=== PATIENT | male | born 1975 | race Caucasian/White ===

== ENCOUNTER 2022-08-02 18:50 | Inpatient (IN) ==
[2022-08-02 19:35] LABS: Basophils # (auto) 0.05 K/uL (0-0.2); Basophils % (auto) 0.6 %; Eosinophils # (auto) 0.17 K/uL (0-0.50); Hematocrit (blood only) 51.5 % (40.1-51.0); Hemoglobin 16.8 g/dl (14.0-18.0); Immature Granulocytes # (auto) 0.02 K/uL (0.00-0.02); Immature Granulocytes % (auto) 0.2 %; Lymphocytes % (auto) 17.2 %; Mean Corpuscular Hemoglobin 29.6 pg (25.0-34.0); Mean Corpuscular Hgb Conc 32.6 g/dL (32.0-36.0); Mean Corpuscular Volume 90.8 fL (80.0-100.0); Mean Platelet Volume 13.2 fL (9.4-12.4); Monocytes # (auto) 0.72 K/uL (0.24-0.82); Monocytes % (auto) 8.3 %; Neutrophils # (auto) 6.24 K/uL (1.4-6.5); Neutrophils % (auto) 71.7 %; Platelet Count 224 K/uL (130-400); RDW Coefficient of Variation 13.9 % (11.5-14.5); RDW Standard Deviation 46.5 fL (36.4-46.3); Red Blood Count 5.67 M/uL (4.63-6.08)
[2022-08-02 19:39] LABS: Appearance Urine Clear (Clear); Bacteria Urine Automated Negative (Negative); Blood Urine 2+ (Negative); Color Urine Dark Yellow; Glucose Urine UA Negative (Negative); Ketones Urine Trace (Negative); Leukocyte Esterase Urine Negative (Negative); Nitrite Urine Negative (Negative); Protein Urine 4+ (Negative); Specific Gravity Urine 1.028 (1.000-1.030); Urobilinogen Urine Negative (Negative); pH Urine 5.5 (4.5-7.5)
[2022-08-02 19:41] LABS: Bilirubin Urine 1+ (Negative)
[2022-08-02 19:47] LABS: Cast Urine Automated >30 /lpf (0-5)
[2022-08-02 19:51] LABS: Albumin Globulin Ratio 0.8 (0.9-2); Albumin Level 3.2 gm/dl (3.4-5.0); Bilirubin,Total 1.4 mg/dl (0.2-1.0); Calcium 8.5 mg/dl (8.5-10.1); Creatinine Clr Calc Pharmacy 106.1 ml/min; Est GFR (African American) 96.4 ml/min; Est GFR (Non-African American) 83.2 ml/min; Globulin 4.1 gm/dl (2.5-4.0); Potassium 3.9 mmol/L (3.5-5.1); Total Protein 7.3 gm/dl (6.0-8.3)
--- NOTE | 2022-08-02 21:41 | Emergency Department Note ---
History of Present Illness General Chief complaint: Abdominal Pain Stated complaint: ABDOMINAL PAIN, SHORTNESS OF BREATH Time Seen by Provider: 08/02/22 21:40 History of Present Illness Maximum Pain Intensity: 7 This 46-year-old male patient presents to the emergency department with his for evaluation of an umbilical hernia with increased pain. Also complaining of bloating and swollen ankles. He has been having increased pressure in his abdomen around his hernia along with the swelling in his ankles and he is concerned that something is going on right now. Has been having SOB along with the symptoms, but no chest pain. Denies any nausea or vomiting. His urine sometimes seems a little darker than usual, but no blood in his urine and no dysuria. Soft formed BMs once a day. Denies hematochezia or melena. Has not been eating as much as normal b/c of the abdominal discomfort. Has not taken any medication for the symptoms. Has not had any recent labs or imaging and has not been evaluated for the hernia previously. He is in the process of getting in with a PCP, but does not have one right now. He has not seen a PCP in many years. No known problems with his liver or kidneys. No known diabetes, but it runs in the family. He drinks beer once every couple months and denies any significant increased ETOH use. He smokes just under 1 ppd. Allergies Allergy/AdvReac Type Severity Reaction Status Date / Time No Known Allergies Allergy Verified 08/02/22 21:51 Past Med/Surg History Medical History Psoriasis Umbilical hernia Surgical History No pertinent past surgical history Social History Smoking Status: Current every day smoker Cigarettes Per Day: 15; Do You Dip or Chew Tobacco: Yes; Tobacco Cessation Education Requested by Patient: No Hx Alcohol Use: Yes Alcohol type: beer Hx Substance Use: Yes Last Used Substance: Days (ago) Preferred Language: Citizen Of [place] Communication Ability: Effective Opinion Polls Survey Worker Required: No Beliefs That Will Affect Care: None Current Living Situation: Spouse Feels Safe at Home: Yes Safety Concerns: Feels Safe At This Time Assistive Devices: Glasses Review of Systems See HPI for pertinent positives & negatives. and A total of 10 systems reviewed and were otherwise negative Physical Exam Vital Signs Vital Signs - 24 hr 08/02/22 18:58 08/02/22 22:00 08/03/22 00:02 Temperature 36.9 C Temperature Source Temporal Artery Scan Pulse Rate 106 H Pulse Rate [Finger] 95 H 92 H Pulse Rate from SpO2 Sensor Pulse Rhythm [Finger] Regular Regular Pulse Strength [Finger] Normal Normal Respiratory Rate 20 16 21 Respiratory Effort / Characteristics Non-Labored Spontaneous Non-Labored Non-Labored Spontaneous Respiratory Depth Normal Normal Normal Respiratory Pattern Regular Regular Blood Pressure 187/157 H Blood Pressure [Right Arm] 215/137 H 231/150 H Blood Pressure Mean 167 Blood Pressure Mean [Right Arm] 163 177 Blood Pressure Position [Right Arm] Sitting Pulse Oximetry 96 97 94 Oxygen Delivery Method Room Air Room Air Room Air Sepsis New/Unexplained Change in Mental Status N/A Sepsis Action Taken by Nursing No Action Required 08/03/22 01:00 08/03/22 03:01 08/03/22 03:02 Temperature Temperature Source Pulse Rate 94 H Pulse Rate [Finger] 89 Pulse Rate from SpO2 Sensor 95 H Pulse Rhythm [Finger] Regular Pulse Strength [Finger] Normal Respiratory Rate 21 25 H Respiratory Effort / Characteristics Non-Labored Spontaneous Respiratory Depth Normal Respiratory Pattern Regular Blood Pressure 273/196 H 270/134 H Blood Pressure [Right Arm] 232/144 H Blood Pressure Mean 221 179 Blood Pressure Mean [Right Arm] 173 Blood Pressure Position [Right Arm] Sitting Pulse Oximetry 92 91 Oxygen Delivery Method Room Air Room Air Sepsis New/Unexplained Change in Mental Status Sepsis Action Taken by Nursing 08/03/22 04:25 08/03/22 05:00 Temperature Temperature Source Pulse Rate 91 H 85 Pulse Rate [Finger] Pulse Rate from SpO2 Sensor 93 H 85 Pulse Rhythm [Finger] Pulse Strength [Finger] Respiratory Rate 23 23 Respiratory Effort / Characteristics Respiratory Depth Respiratory Pattern Blood Pressure 214/134 H 216/155 H Blood Pressure [Right Arm] Blood Pressure Mean 160 175 Blood Pressure Mean [Right Arm] Blood Pressure Position [Right Arm] Pulse Oximetry 93 92 Oxygen Delivery Method Room Air Room Air Sepsis New/Unexplained Change in Mental Status Sepsis Action Taken by Nursing VITALS: Vitals are noted on the nurse's note and reviewed by myself. GENERAL: 46-year-old male, in no acute distress, non-diaphoretic, well-developed well-nourished. SKIN: Multiple areas of psoriasis scattered over the patient's body. No obvious evidence for infection. Capillary refill <2 sec. HEAD: Normocephalic, atraumatic. EARS: External auditory canals clear, tympanic membranes pearly duarte without erythema or effusion bilaterally. EYES: PERRLA. EOMI. Conjunctivae without injection, sclerae without icterus. NOSE: Patent without discharge. MOUTH: Mucous membranes moist. Uvula midline. Airway patent. NECK: Supple without nuchal rigidity. HEART: Regular rate and rhythm without obvious murmurs gallops or rubs given patient's body habitus. LUNGS: Clear to auscultation bilaterally without wheezes, rales or rhonchi. No retractions or accessory muscle use. ABDOMEN: Positive bowel sounds x 4. Abdomen distended without obvious ascites or fluid wave. Small umbilical hernia without evidence for incarceration or strangulation. The abdomen is not tense. Unable to palpate the liver or spleen due to the abdominal distention and body habitus. Diffusely tender to palpation with no maximal area of tenderness. The patient does have erythema and some induration of the lower abdominal fold. Gonzalez sign negative. No guarding or rebound tenderness. MUSCULOSKELETAL: Edema of the bilateral lower extremities without any significant pitting. Dorsalis pedis and posterior tibial pulse 2+. NEURO: Patient was alert and oriented to person place and time. No asterixis. No focal neurological deficits. Course Administered Medications Enoxaparin Sodium (Enoxaparin Inj 40 Mg/0.4 Ml Syr) 40 mg SQ QAM [facility] Stop: 09/02/22 08:59 Last Admin: 08/03/22 07:59 Dose: 40 mg Documented By: VALERIA Furosemide (Furosemide 40 Mg/4 Ml Vial) 40 mg IV BID17 [facility] Stop: 09/02/22 08:59 Last Admin: 08/03/22 09:12 Dose: 40 mg Documented By: KAMALJIT Hydralazine HCl (Hydralazine 10 Mg Tab) 5 mg PO TID [facility] Stop: 09/02/22 08:59 Last Admin: 08/03/22 09:11 Dose: 5 mg Documented By: KAMALJIT Metoprolol Tartrate (Metoprolol Tartrate 25 Mg Tab) 25 mg PO BID [facility] Stop: 09/02/22 07:59 Last Admin: 08/03/22 08:44 Dose: 25 mg Documented By: KAMALJIT Discontinued Medications Fentanyl Citrate (Fentanyl Citrate 100 Mcg/2 Ml Vial) 50 mcg IV NOW STA Stop: 08/02/22 23:40 Last Admin: 08/02/22 23:56 Dose: 50 mcg Documented By: KENNETH Furosemide (Furosemide Inj 20 Mg/2 Ml Vial) 20 mg IV ONE ONE Stop: 08/03/22 02:55 Last Admin: 08/03/22 03:08 Dose: 20 mg Documented By: KENNETH Furosemide (Furosemide 40 Mg/4 Ml Vial) 40 mg IV ONE ONE Stop: 08/03/22 07:31 Last Admin: 08/03/22 07:57 Dose: 40 mg Documented By: VALERIA Influenza Virus Vaccine Quadrival (Fluarix Quadrivalent 0.5 Ml Syr) 0.5 ml IM .ONCE ONE Stop: 08/03/22 06:39 Last Admin: 08/03/22 07:58 Dose: Not Given Documented By: VALERIA Ioversol (Optiray 320 500ml) 125 ml IV ONCE ONE Stop: 08/03/22 00:38 Last Admin: 08/03/22 00:37 Dose: 117 ml Documented By: GABE Labetalol HCl (Labetalol Hcl Iv 5 Mg/Ml 20ml) 10 mg IV NOW STA Stop: 08/03/22 03:24 Last Admin: 08/03/22 04:42 Dose: 10 mg Documented By: KENNETH Co-signed By: IVON Lisinopril (Lisinopril 5 Mg Tab) 5 mg PO NOW ONE Stop: 08/03/22 05:06 Last Admin: 08/03/22 05:42 Dose: 5 mg Documented By: KENNETH Lisinopril (Lisinopril 5 Mg Tab) 5 mg PO ONE ONE Stop: 08/03/22 08:01 Last Admin: 08/03/22 07:57 Dose: 5 mg Documented By: VALERIA Lisinopril (Lisinopril 10 Mg Tab) 30 mg PO ONE ONE Stop: 08/03/22 09:01 Last Admin: 08/03/22 09:12 Dose: 30 mg Documented By: KAMALJIT Ondansetron HCl (Ondansetron Inj 2 Mg/Ml 2 Ml Vial) 4 mg IV NOW STA Stop: 08/02/22 23:40 Last Admin: 08/02/22 23:56 Dose: 4 mg Documented By: KENNETH Medical Decision Making Differential Diagnosis Differential diagnosis includes incarcerated or strangulated umbilical hernia, CHF, cirrhosis, ascites, pericardial effusion, PE, DVT, GA, cellulitis, abdominal abscess, abdominal mass, pulmonary mass/lesion, cellulitis, or others. Laboratory Data Attestation: I reviewed the patient's lab results. Result diagrams: 08/03/22 08:14 08/03/22 08:14 Lab Results 08/02/22 08/02/22 08/02/22 Range/Units 00:21 19:18 19:18 WBC 8.70 (4.8-10.8) K/ul RBC 5.67 (4.63-6.08) M/uL Hgb 16.8 (14.0-18.0) g/dl Hct 51.5 H (40.1-51.0) % MCV 90.8 (80.0-100.0) fL MCH 29.6 (25.0-34.0) pg MCHC 32.6 (32.0-36.0) g/dL RDW Std Deviation 46.5 H (36.4-46.3) fL RDW Coeff of Nain 13.9 (11.5-14.5) % Plt Count 224 (130-400) K/uL MPV 13.2 H (9.4-12.4) fL Immature Gran % (Auto) 0.2 % Neut % (Auto) 71.7 % Lymph % (Auto) 17.2 % Giles % (Auto) 8.3 % Eos % (Auto) 2.0 % Baso % (Auto) 0.6 % Neut # (Auto) 6.24 (1.4-6.5) K/uL Lymph # (Auto) 1.50 (1.2-3.4) K/uL Giles # (Auto) 0.72 (0.24-0.82) K/uL Eos # (Auto) 0.17 (0-0.50) K/uL Baso # (Auto) 0.05 (0-0.2) K/uL Immature Gran # (Auto) 0.02 (0.00-0.02) K/uL PT (9.0-12.0) Seconds INR (0.9-1.1) APTT (21.0-31.0) Seconds PTT Ratio D-Dimer (0-500) ug/L FEU Sodium 137 (136-145) mmol/L Potassium 3.9 (3.5-5.1) mmol/L Chloride 98 (98-107) mmol/L Carbon Dioxide 32 (21-32) mmol/L Anion Gap 7 (3-11) BUN 18 (6-23) mg/dl Creatinine 1.06 (0.6-1.4) mg/dl Est Cr Clr Drug Dosing 106.1 ml/min Est GFR ( Amer) 96.4 ml/min Est GFR (Non-Af Amer) 83.2 ml/min BUN/Creatinine Ratio 17.0 (10-20) Glucose 173 H (70-99(Fasting)) mg/dl Estimat Average Glucose mg/dl Hemoglobin A1c (4.5-5.6) % Calcium 8.5 (8.5-10.1) mg/dl Magnesium Cancelled Total Bilirubin 1.4 H (0.2-1.0) mg/dl Direct Bilirubin (0-0.2) mg/dl AST 20 (13-39) U/L ALT 16 (7-52) U/L Alkaline Phosphatase 80 (34-104) U/L Troponin I High Sens (0-20) pg/ml B-Natriuretic Peptide (0-100) pg/ml Total Protein 7.3 (6.0-8.3) gm/dl Albumin 3.2 L (3.4-5.0) gm/dl Globulin 4.1 H (2.5-4.0) gm/dl Albumin/Globulin Ratio 0.8 L (0.9-2) Lipase 22 (11-82) U/L TSH (0.300-4.500) uIu/ml Urine Color Urine Appearance (Clear) Urine pH (4.5-7.5) Ur Specific [place] (1.000-1.030) Urine Protein (Negative) Urine Glucose (UA) (Negative) Urine Ketones (Negative) Urine Blood (Negative) Urine Nitrite (Negative) Urine Bilirubin (Negative) Urine Urobilinogen (Negative) Ur Leukocyte Esterase (Negative) Urine WBC (Auto) (0-5) /hpf Urine RBC (Auto) (0-4) /hpf U Hyaline Cast (Auto) (0-5) /lpf U Epithel Cells (Auto) (0-5) /lpf Urine Bacteria (Auto) (Negative) Ur Renal Epithelial Cell Granular Casts (0) /lpf SARS-CoV-2, RNA, NAAT (NEGATIVE) 08/02/22 08/02/22 08/02/22 Range/Units 19:18 19:18 19:24 WBC (4.8-10.8) K/ul RBC (4.63-6.08) M/uL Hgb (14.0-18.0) g/dl Hct (40.1-51.0) % MCV (80.0-100.0) fL MCH (25.0-34.0) pg MCHC (32.0-36.0) g/dL RDW Std Deviation (36.4-46.3) fL RDW Coeff of Nain (11.5-14.5) % Plt Count (130-400) K/uL MPV (9.4-12.4) fL Immature Gran % (Auto) % Neut % (Auto) % Lymph % (Auto) % Giles % (Auto) % Eos % (Auto) % Baso % (Auto) % Neut # (Auto) (1.4-6.5) K/uL Lymph # (Auto) (1.2-3.4) K/uL Giles # (Auto) (0.24-0.82) K/uL Eos # (Auto) (0-0.50) K/uL Baso # (Auto) (0-0.2) K/uL Immature Gran # (Auto) (0.00-0.02) K/uL PT (9.0-12.0) Seconds INR (0.9-1.1) APTT (21.0-31.0) Seconds PTT Ratio D-Dimer (0-500) ug/L FEU Sodium (136-145) mmol/L Potassium (3.5-5.1) mmol/L Chloride (98-107) mmol/L Carbon Dioxide (21-32) mmol/L Anion Gap (3-11) BUN (6-23) mg/dl Creatinine (0.6-1.4) mg/dl Est Cr Clr Drug Dosing ml/min Est GFR ( Amer) ml/min Est GFR (Non-Af Amer) ml/min BUN/Creatinine Ratio (10-20) Glucose (70-99(Fasting)) mg/dl Estimat Average Glucose 166 mg/dl Hemoglobin A1c 7.4 H (4.5-5.6) % Calcium (8.5-10.1) mg/dl Magnesium Total Bilirubin (0.2-1.0) mg/dl Direct Bilirubin (0-0.2) mg/dl AST (13-39) U/L ALT (7-52) U/L Alkaline Phosphatase (34-104) U/L Troponin I High Sens (0-20) pg/ml B-Natriuretic Peptide (0-100) pg/ml Total Protein (6.0-8.3) gm/dl Albumin (3.4-5.0) gm/dl Globulin (2.5-4.0) gm/dl Albumin/Globulin Ratio (0.9-2) Lipase (11-82) U/L TSH 2.380 (0.300-4.500) uIu/ml Urine Color Dark Yellow Urine Appearance Clear (Clear) Urine pH 5.5 (4.5-7.5) Ur Specific [place] 1.028 (1.000-1.030) Urine Protein 4+ H (Negative) Urine Glucose (UA) Negative (Negative) Urine Ketones Trace H (Negative) Urine Blood 2+ H (Negative) Urine Nitrite Negative (Negative) Urine Bilirubin 1+ H (Negative) Urine Urobilinogen Negative (Negative) Ur Leukocyte Esterase Negative (Negative) Urine WBC (Auto) 1-5 (0-5) /hpf Urine RBC (Auto) 5-10 H (0-4) /hpf U Hyaline Cast (Auto) >30 H (0-5) /lpf U Epithel Cells (Auto) 5-10 H (0-5) /lpf Urine Bacteria (Auto) Negative (Negative) Ur Renal Epithelial Cell Not Reportable Granular Casts 1-5 H (0) /lpf SARS-CoV-2, RNA, NAAT (NEGATIVE) 08/02/22 08/02/22 08/02/22 Range/Units 22:31 22:31 22:31 WBC (4.8-10.8) K/ul RBC (4.63-6.08) M/uL Hgb (14.0-18.0) g/dl Hct (40.1-51.0) % MCV (80.0-100.0) fL MCH (25.0-34.0) pg MCHC (32.0-36.0) g/dL RDW Std Deviation (36.4-46.3) fL RDW Coeff of Nain (11.5-14.5) % Plt Count (130-400) K/uL MPV (9.4-12.4) fL Immature Gran % (Auto) % Neut % (Auto) % Lymph % (Auto) % Giles % (Auto) % Eos % (Auto) % Baso % (Auto) % Neut # (Auto) (1.4-6.5) K/uL Lymph # (Auto) (1.2-3.4) K/uL Giles # (Auto) (0.24-0.82) K/uL Eos # (Auto) (0-0.50) K/uL Baso # (Auto) (0-0.2) K/uL Immature Gran # (Auto) (0.00-0.02) K/uL PT (9.0-12.0) Seconds INR (0.9-1.1) APTT (21.0-31.0) Seconds PTT Ratio D-Dimer 1150 H* (0-500) ug/L FEU Sodium (136-145) mmol/L Potassium (3.5-5.1) mmol/L Chloride (98-107) mmol/L Carbon Dioxide (21-32) mmol/L Anion Gap (3-11) BUN (6-23) mg/dl Creatinine (0.6-1.4) mg/dl Est Cr Clr Drug Dosing ml/min Est GFR ( Amer) ml/min Est GFR (Non-Af Amer) ml/min BUN/Creatinine Ratio (10-20) Glucose (70-99(Fasting)) mg/dl Estimat Average Glucose mg/dl Hemoglobin A1c (4.5-5.6) % Calcium (8.5-10.1) mg/dl Magnesium Total Bilirubin (0.2-1.0) mg/dl Direct Bilirubin 0.4 H (0-0.2) mg/dl AST (13-39) U/L ALT (7-52) U/L Alkaline Phosphatase (34-104) U/L Troponin I High Sens 36.6 H (0-20) pg/ml B-Natriuretic Peptide 994 H (0-100) pg/ml Total Protein (6.0-8.3) gm/dl Albumin (3.4-5.0) gm/dl Globulin (2.5-4.0) gm/dl Albumin/Globulin Ratio (0.9-2) Lipase (11-82) U/L TSH (0.300-4.500) uIu/ml Urine Color Urine Appearance (Clear) Urine pH (4.5-7.5) Ur Specific [place] (1.000-1.030) Urine Protein (Negative) Urine Glucose (UA) (Negative) Urine Ketones (Negative) Urine Blood (Negative) Urine Nitrite (Negative) Urine Bilirubin (Negative) Urine Urobilinogen (Negative) Ur Leukocyte Esterase (Negative) Urine WBC (Auto) (0-5) /hpf Urine RBC (Auto) (0-4) /hpf U Hyaline Cast (Auto) (0-5) /lpf U Epithel Cells (Auto) (0-5) /lpf Urine Bacteria (Auto) (Negative) Ur Renal Epithelial Cell Granular Casts (0) /lpf SARS-CoV-2, RNA, NAAT (NEGATIVE) 08/03/22 08/03/22 08/03/22 Range/Units 00:21 00:21 03:10 WBC (4.8-10.8) K/ul RBC (4.63-6.08) M/uL Hgb (14.0-18.0) g/dl Hct (40.1-51.0) % MCV (80.0-100.0) fL MCH (25.0-34.0) pg MCHC (32.0-36.0) g/dL RDW Std Deviation (36.4-46.3) fL RDW Coeff of Nain (11.5-14.5) % Plt Count (130-400) K/uL MPV (9.4-12.4) fL Immature Gran % (Auto) % Neut % (Auto) % Lymph % (Auto) % Giles % (Auto) % Eos % (Auto) % Baso % (Auto) % Neut # (Auto) (1.4-6.5) K/uL Lymph # (Auto) (1.2-3.4) K/uL Giles # (Auto) (0.24-0.82) K/uL Eos # (Auto) (0-0.50) K/uL Baso # (Auto) (0-0.2) K/uL Immature Gran # (Auto) (0.00-0.02) K/uL PT 13.3 H (9.0-12.0) Seconds INR 1.3 H (0.9-1.1) APTT 30.8 (21.0-31.0) Seconds PTT Ratio 1.1 D-Dimer (0-500) ug/L FEU Sodium (136-145) mmol/L Potassium (3.5-5.1) mmol/L Chloride (98-107) mmol/L Carbon Dioxide (21-32) mmol/L Anion Gap (3-11) BUN (6-23) mg/dl Creatinine (0.6-1.4) mg/dl Est Cr Clr Drug Dosing ml/min Est GFR ( Amer) ml/min Est GFR (Non-Af Amer) ml/min BUN/Creatinine Ratio (10-20) Glucose (70-99(Fasting)) mg/dl Estimat Average Glucose mg/dl Hemoglobin A1c (4.5-5.6) % Calcium (8.5-10.1) mg/dl Magnesium Total Bilirubin (0.2-1.0) mg/dl Direct Bilirubin (0-0.2) mg/dl AST (13-39) U/L ALT (7-52) U/L Alkaline Phosphatase (34-104) U/L Troponin I High Sens 42.1 H (0-20) pg/ml B-Natriuretic Peptide (0-100) pg/ml Total Protein (6.0-8.3) gm/dl Albumin (3.4-5.0) gm/dl Globulin (2.5-4.0) gm/dl Albumin/Globulin Ratio (0.9-2) Lipase (11-82) U/L TSH (0.300-4.500) uIu/ml Urine Color Urine Appearance (Clear) Urine pH (4.5-7.5) Ur Specific [place] (1.000-1.030) Urine Protein (Negative) Urine Glucose (UA) (Negative) Urine Ketones (Negative) Urine Blood (Negative) Urine Nitrite (Negative) Urine Bilirubin (Negative) Urine Urobilinogen (Negative) Ur Leukocyte Esterase (Negative) Urine WBC (Auto) (0-5) /hpf Urine RBC (Auto) (0-4) /hpf U Hyaline Cast (Auto) (0-5) /lpf U Epithel Cells (Auto) (0-5) /lpf Urine Bacteria (Auto) (Negative) Ur Renal Epithelial Cell Granular Casts (0) /lpf SARS-CoV-2, RNA, NAAT NEGATIVE (NEGATIVE) Imaging Data Radiologist's Impression: Abdomen/Pelvis CT 08/02/22 21:53 CT abd pelvis IV con only CLINICAL HISTORY: abdominal pain, umbilical hernia TECHNIQUE: Helical axial images of the abdomen and pelvis were obtained and displayed. Automated dose lowering techniques and/or adjustment according to patient size were utilized for this exam. This exam was performed with intravenous contrast. COMPARISON: None available at the time of this dictation. FINDINGS: Lower chest: Mild right and trace left pleural effusions noted. There is associated atelectasis. Liver: Nodular contour of the liver is seen compatible with cirrhosis. Numerous small enhancing lesions are seen. Gallbladder and biliary tree: Pericholecystic fluid is seen without emy wall thickening. No intra- or extrahepatic biliary ductal dilation. Pancreas: Unremarkable, no focal lesions. Spleen: Unremarkable. Adrenals: Unremarkable. Kidneys and ureters: Exophytic cyst measuring 12 mm is seen in the left kidney. Bladder: Unremarkable. Reproductive organs: Unremarkable. Bowel: Unremarkable appearance of the bowel. The appendix is normal. Lymph nodes Retroperitoneal: Unremarkable. Pelvic: Prominent subcentimeter inguinal nodes are noted. Mesenteric: Unremarkable. Peritoneum: Trace abdominal fluid is seen. Vessels: Atherosclerotic calcifications are seen. A few varices are noted in the body wall. Abdominal wall: An umbilical hernia is seen containing fat and fluid. Body wall edema is noted. Bones: Degenerative changes in the visualized spine. IMPRESSION: 1. Cirrhotic contour of the liver with numerous enhancing small nodules. If not previously evaluated, MRI liver mass protocol is recommended. 2. Umbilical hernia containing fat and fluid. 3. Bilateral pleural effusions and small volume ascites. ACT 112: Negative or not required by law. Electronically signed by: Marquise Hwang M.D. 08/03/2022 9:58 AM Chest CTA 08/02/22 23:35 CT ANGIOGRAPHY OF THE CHEST, PULMONARY EMBOLUS PROTOCOL CLINICAL HISTORY: Shortness of breath. Evaluate for pulmonary embolus. COMPARISON STUDY: Chest radiograph performed earlier today. TECHNIQUE: Following IV administration of 117 mL of Optiray, helical axial images of the chest were obtained utilizing the pulmonary embolus protocol. Maximal intensity projections and sagittal and coronal reformats were viewed on an independent 3D workstation. IV contrast was administered without complication. Automated exposure control was utilized for the study. A dose lowering technique was utilized adhering to the principles of ALARA. CT DOSE: 2329.08 mGy.cm FINDINGS: No pulmonary emboli are identified. Moderate cardiomegaly is noted. There is no pericardial effusion. There is aortic valvular calcification. Small to moderate right and small left pleural effusions are noted. Subpleural opacities within the lower lungs favor atelectasis. There is no consolidation to suggest pneumonia. There is mild interlobular septal thickening. No thoracic lymphadenopathy is present. Abdomen and pelvis will be reported separately. Upp er abdominal ascites is noted. There is hepatic steatosis with suspected cirrhosis. Numerous hypervascular hepatic foci are noted on the CT of the abdomen and pelvis. These are not well visualized on this exam. IMPRESSION: 1. No pulmonary emboli identified. 2. Cardiomegaly. Small to moderate right and small left pleural effusions. Possible interstitial mild pulmonary edema. 3. Hepatic steatosis and suspected cirrhosis. Numerous hypervascular hepatic foci/lesions are better depicted on the CT of the abdomen or pelvis. These are indeterminate. Nonemergent liver protocol MRI is recommended. ACT 112: Negative or not required by law. Electronically signed by: Anastacio Gonzales M.D. 08/03/2022 9:00 AM Venous Doppler Study 08/02/22 23:35 BILATERAL LOWER EXTREMITY VENOUS DOPPLER CLINICAL HISTORY: leg swelling, elevated D-dimer COMPARISON STUDY: No previous studies for comparison. TECHNIQUE: Sonography of the deep venous system of the bilateral lower extremities was performed. Compression and augmentation were evaluated. FINDINGS: The bilateral common femoral, superficial femoral and popliteal veins were compressible. Augmentation was normal. Flow was shown within the deep calf vessels. There is minimal superficial thrombus adherent to the islas of the bilateral greater saphenous veins. The focus within the left greater saphenous vein measures 1 cm in extent. IMPRESSION: 1. No evidence of deep venous thrombus within the bilateral lower extremities. 2. Minimal superficial thrombus within the bilateral greater saphenous veins. This finding will be called/faxed to ordering provider at time of dictation. ACT 112: Negative or not required by law. Electronically signed by: Anastacio Gonzales M.D. 08/03/2022 7:51 AM Preliminary Findings Only See Final Report For Complete Findings CT ABDOMEN & PELVIS With Contrast: There is a cirrhotic morphology of the liver with numerous enhancing nodules present throughout the liver parenchyma. Further evaluation with either triple phase CT or MRI is recommended. There is a small amount of pericholecystic fluid is most likely reactive. There is small volume ascites. There is an umbilical hernia containing a small volume of ascitic fluid which may correlate with patient's symptoms. Please see the dedicated interpretation of the thorax for intrathoracic findings. Radiologist: Christiano Garcia MD Study ready at 01:00 and initial results transmitted at 01:03 Preliminary Findings Only See Final Report For Complete Findings CTA CHEST: There is excellent opacification of the pulmonary arterial tree, no pulmonary arterial filling defect is seen. There is a moderate right pleural effusion. The heart is enlarged with a trace pericardial effusion. There are degenerative changes of the thoracolumbar spine. Radiologist: Christiano Garcia MD Study ready at 01:01 and initial results transmitted at 01:04 Preliminary Findings Only See Final Report For Complete Findings US VENOUS BILATERAL LOWER EXTREMITIES: No evidence of deep venous thrombosis. Radiologist: Christiano Garcia MD Study ready at 02:00 and initial results transmitted at 02:02 MDM Narrative I examined the patient. The patient has abdominal distention, tenderness, and swelling of the bilateral lower extremities. He has not seen a family doctor in many years per patient. He was given fentanyl 50 mcg IV and Zofran 4 mg IV. EKG was interpreted by myself and Dr. Means and shows sinus tachycardia at 101 bpm but no acute ST or T wave changes. 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 Patient was placed on the supervisor [employer]. Patient was noted to be in normal sinus rhythm at an initial rate of 95 bpm. Chest x-ray was interpreted by myself and Dr. Means and shows significant cardiomegaly with congestion. CBC essentially unremarkable with normal hemoglobin. CMP with elevated glucose, decreased albumin, and mostly indirect elevation of the bilirubin. Other LFTs were normal. High-sensitivity troponin was elevated at 36.6 with 2-hour repeat at 42.1. BNP was elevated at 994. D-dimer was elevated at 1150. Urinalysis without obvious evidence for UTI. COVID was negative. Venous Dopplers of the bilateral lower extremities was reviewed by myself and read by stat rad and show no evidence for DVT. CT scan of the chest with PE protocol showed no evidence for PE, but does show a moderate right pleural effusion and cardiomegaly with trace pericardial effusion. CT scan of the abdomen pelvis with contrast showed cirrhosis with numerous enhancing nodules throughout the liver parenchyma with further imaging recommended. There is a small amount of pericholecystic fluid which is most likely reactive. Small volume ascites. Umbilical hernia with a small amount of ascitic fluid. I had a meaningful discussion about this patient with Dr. Means. They agree with my assessment and the treatment plan. The patient was given Lasix 20 mg IV. The patient has been hypertensive throughout his stay with significant abnormal findings on laboratory and radiology work-up. I spoke with the on-call hospitalist who agreed to admit the patient for further evaluation and t reatment. Please refer to their dictation for further details. The patient was admitted in stable condition. Impression & Plan Congestive heart failure due to hypertension, Hypertensive urgency, Cirrhosis, Lesion of liver, Ascites Discharge Plan Visit Data Chief Complaint: Abdominal Pain Stated Complaint: ABDOMINAL PAIN, SHORTNESS OF BREATH ED Provider: Yunior Means ED Midlevel Provider: Minerva Amaya Discharge Problem: Congestive heart failure due to hypertension, Hypertensive urgency, Cirrhosis, Lesion of liver, Ascites Patient Disposition: Admitted As Inpatient Discharge Instructions Interventions: ED Discharge Assessment Last Done: 08/03/22 05:53
[2022-08-02 23:17] LABS: Bilirubin Direct 0.4 mg/dl (0-0.2)
[2022-08-02 23:19] LABS: D Dimer 1150 ug/L FEU (0-500)
[2022-08-02 23:24] LABS: Troponin I High Sensitivity 36.6 pg/ml (0-20)
[2022-08-02] MEDS ORDERED: fentaNYL citrate 100 MCG/2 ML VIAL IV STA (23:39)
[2022-08-02] MEDS ORDERED: ONDANSETRON INJ 2 MG/ML 2 ML VIAL IV STA (23:39)
[2022-08-03] MEDS ORDERED: OPTIRAY 320 500ml IV ONE (00:37)
[2022-08-03 01:18] LABS: INR 1.3 (0.9-1.1); Partial Thromboplastin Ratio 1.1; Partial Thromboplastin Time 30.8 Seconds (21.0-31.0); Prothrombin Time 13.3 Seconds (9.0-12.0)
[2022-08-03] MEDS ORDERED: FUROSEMIDE INJ 20 MG/2 ML VIAL IV ONE (02:54)
--- NOTE | 2022-08-03 03:21 | History & Physical Report ---
Date of Service August 03, 2022 Assessment & Plan (1) Congestive heart failure due to hypertension: Plan: Likely secondary to hypertensive crisis Uncontrolled hypertension of years duration History of medical noncompliance Pericardial effusion, troponin elevation secondary to above New onset cirrhosis Possible cardiac cirrhosis Possible fatty liver disease given obesity Past alcohol abuse Hyperglycemia rule out DM ongoing tobacco abuse psoriasis PCU Diuretic Rx Strict I/Os, daily weights, CHF education IV labetalol 1 dose now Initiate lisinopril and beta-lyly for BP control Careful lowering of BP first 24 hours TTE, Cardiology consult Re: Hypertensive crisis, CHF, pericardial effusion GI consult Re: Cirrhosis work-up Check hemoglobin A1c Outpatient Dermatology referral for psoriasis Nicotine patch as needed DVT prophylaxis. Lovenox subcu Full code Total critical care time was 45 minutes. Patient requesting updates from providers. Ms. Ny Ramirez, contact #[phone]. Text document was generated using [employer] voice recognition software. It may contain grammatical or spelling errors. Kindly contact undersigned for clarification of any documentation item in question. History of Present Illness Chief Complaint: Shortness of breath, abdominal distention Primary Care Provider: NO PCP History obtained from patient, family, and records. Medical history significant for hypertension, past alcohol abuse, ongoing tobacco abuse, psoriasis, umbilical hernia, medical noncompliance. Patient has not seen a family doctor for about 30 years. Known high blood pressure for a number of years now. No treatment because patient does not like going to doctors as per . 1 month history of increasing abdominal distention causing increased bulge of his umbilical hernia. No actual belly pain. Increasing shortness of breath especially on exertion. Unquantified weight gain with increase lower extremity swelling. No headache, no chest pain, no fever, no chills. History of alcohol abuse during his teens. Last EtOH intake was last month as per patient. Patient denies inordinate Tylenol intake. Patient brought to ER by for evaluation. Highest SBP at the ER to 270s. IV Lasix administered at the ER. 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 Allergy/AdvReac Type Severity Reaction Status Date / Time No Known Allergies Allergy Verified 08/02/22 21:51 Past Med/Surg History Medical History Psoriasis Umbilical hernia Surgical History No pertinent past surgical history Social History Smoking Status: Current every day smoker Cigarettes Per Day: 15; Do You Dip or Chew Tobacco: Yes; Tobacco Cessation Education Requested by Patient: No Hx Alcohol Use: Yes Alcohol type: beer Hx Substance Use: Yes Last Used Substance: Days (ago) Preferred Language: French Communication Ability: Effective Body Make Up Artist Required: No Beliefs That Will Affect Care: None Current Living Situation: Spouse Feels Safe at Home: Yes Safety Concerns: Feels Safe At This Time Assistive Devices: None Review of Systems Review of Systems: As per HPI, all other systems reviewed and negative Physical Exam Physical Exam: GENERAL: Comfortable, slightly anxious, morbidly obese, looks older than stated age, no respiratory distress SKIN: Normal color, red plaques with some scaling over anterior abdomen and extremities, warm HEENT: Bespectacled, [place] palpebral conjunctivae, no ptosis, moist buccal mucosa NECK : Supple, short neck, no tenderness CHEST : Decreased breath sounds, no tenderness HEART : RRR, no obvious murmurs ABDOMEN: Some distention, protuberant umbilical hernia, nontender EXTREMITIES : Bilateral LE swelling, no LE tenderness, no other conspicuous deformities noted NEUROLOGIC : Coherent, no facial asymmetry, no other gross focality Results & Data Results & Data ([facility]) Vital Signs (Past 12 Hours) Vital Signs Temp Pulse Pulse Resp BP BP Pulse Ox 08/03/22 03:02 94 H 25 H 270/134 H 91 08/03/22 03:01 273/196 H 08/03/22 01:00 89 21 232/144 H 92 08/03/22 00:02 92 H 21 231/150 H 94 08/02/22 22:00 95 H 16 215/137 H 97 08/02/22 18:58 36.9 C 106 H 20 187/157 H 96 O2 Del Method 08/03/22 03:02 Room Air 08/03/22 03:01 08/03/22 01:00 Room Air 08/03/22 00:02 Room Air 08/02/22 22:00 Room Air 08/02/22 18:58 Room Air Laboratory Results Laboratory Results WBC 8.70 K/ul (4.8-10.8) 08/02/22 19:18 RBC 5.67 M/uL (4.63-6.08) 08/02/22 19:18 Hgb 16.8 g/dl (14.0-18.0) 08/02/22 19:18 Hct 51.5 % (40.1-51.0) H 08/02/22 19:18 MCV 90.8 fL (80.0-100.0) 08/02/22 19:18 MCH 29.6 pg (25.0-34.0) 08/02/22 19:18 MCHC 32.6 g/dL (32.0-36.0) 08/02/22 19:18 RDW Std Deviation 46.5 fL (36.4-46.3) H 08/02/22 19:18 RDW Coeff of Nain 13.9 % (11.5-14.5) 08/02/22 19:18 Plt Count 224 K/uL (130-400) 08/02/22 19:18 MPV 13.2 fL (9.4-12.4) H 08/02/22 19:18 Immature Gran % (Auto) 0.2 % 08/02/22 19:18 Neut % (Auto) 71.7 % 08/02/22 19:18 Lymph % (Auto) 17.2 % 08/02/22 19:18 Towns % (Auto) 8.3 % 08/02/22 19:18 Eos % (Auto) 2.0 % 08/02/22 19:18 Baso % (Auto) 0.6 % 08/02/22 19:18 Neut # (Auto) 6.24 K/uL (1.4-6.5) 08/02/22 19:18 Lymph # (Auto) 1.50 K/uL (1.2-3.4) 08/02/22 19:18 Towns # (Auto) 0.72 K/uL (0.24-0.82) 08/02/22 19:18 Eos # (Auto) 0.17 K/uL (0-0.50) 08/02/22 19:18 Baso # (Auto) 0.05 K/uL (0-0.2) 08/02/22 19:18 Immature Gran # (Auto) 0.02 K/uL (0.00-0.02) 08/02/22 19:18 PT 13.3 Seconds (9.0-12.0) H 08/03/22 00:21 INR 1.3 (0.9-1.1) H 08/03/22 00:21 APTT 30.8 Seconds (21.0-31.0) 08/03/22 00:21 PTT Ratio 1.1 08/03/22 00:21 D-Dimer 1150 ug/L FEU (0-500) H* 08/02/22 22:31 Sodium 137 mmol/L (136-145) 08/02/22 19:18 Potassium 3.9 mmol/L (3.5-5.1) 08/02/22 19:18 Chloride 98 mmol/L (98-107) 08/02/22 19:18 Carbon Dioxide 32 mmol/L (21-32) 08/02/22 19:18 Anion Gap 7 (3-11) 08/02/22 19:18 BUN 18 mg/dl (6-23) 08/02/22 19:18 Creatinine 1.06 mg/dl (0.6-1.4) 08/02/22 19:18 Est Cr Clr Drug Dosing 106.1 ml/min 08/02/22 19:18 Est GFR ( Amer) 96.4 ml/min 08/02/22 19:18 Est GFR (Non-Af Amer) 83.2 ml/min 08/02/22 19:18 BUN/Creatinine Ratio 17.0 (10-20) 08/02/22 19:18 Glucose 173 mg/dl (70-99(Fasting)) H 08/02/22 19:18 Calcium 8.5 mg/dl (8.5-10.1) 08/02/22 19:18 Total Bilirubin 1.4 mg/dl (0.2-1.0) H 08/02/22 19:18 Direct Bilirubin 0.4 mg/dl (0-0.2) H 08/02/22 22:31 AST 20 U/L (13-39) 08/02/22 19:18 ALT 16 U/L (7-52) 08/02/22 19:18 Alkaline Phosphatase 80 U/L (34-104) 08/02/22 19:18 Troponin I High Sens 42.1 pg/ml (0-20) H 08/03/22 00:21 B-Natriuretic Peptide 994 pg/ml (0-100) H 08/02/22 22:31 Total Protein 7.3 gm/dl (6.0-8.3) 08/02/22 19:18 Albumin 3.2 gm/dl (3.4-5.0) L 08/02/22 19:18 Globulin 4.1 gm/dl (2.5-4.0) H 08/02/22 19:18 Albumin/Globulin Ratio 0.8 (0.9-2) L 08/02/22 19:18 Lipase 22 U/L (11-82) 08/02/22 19:18 Urine Color Dark Yellow 08/02/22 19:24 Urine Appearance Clear (Clear) 08/02/22 19:24 Urine pH 5.5 (4.5-7.5) 08/02/22 19:24 Ur Specific [place] 1.028 (1.000-1.030) 08/02/22 19:24 Urine Protein 4+ (Negative) H 08/02/22 19:24 Urine Glucose (UA) Negative (Negative) 08/02/22 19:24 Urine Ketones Trace (Negative) H 08/02/22 19:24 Urine Blood 2+ (Negative) H 08/02/22 19:24 Urine Nitrite Negative (Negative) 08/02/22 19:24 Urine Bilirubin 1+ (Negative) H 08/02/22 19:24 Urine Urobilinogen Negative (Negative) 08/02/22 19:24 Ur Leukocyte Esterase Negative (Negative) 08/02/22 19:24 Urine WBC (Auto) 1-5 /hpf (0-5) 08/02/22 19:24 Urine RBC (Auto) 5-10 /hpf (0-4) H 08/02/22 19:24 U Hyaline Cast (Auto) >30 /lpf (0-5) H 08/02/22 19:24 U Epithel Cells (Auto) 5-10 /lpf (0-5) H 08/02/22 19:24 Urine Bacteria (Auto) Negative (Negative) 08/02/22 19:24 Ur Renal Epithelial Cell Not Reportable 08/02/22 19:24 Granular Casts 1-5 /lpf (0) H 08/02/22 19:[address] chest initial read: There is excellent opacification of the pulmonaryarterial tree, no pulmonaryarterial filling defect is seen. There is a moderate right pleural effusion. The heart is enlarged with a trace pericardial effusion. There are degenerative changes of the thoracolumbar spin CT abdomen pelvis initial read: There is a cirrhotic morphologyof the liver with numerous enhancing nodules present throughout the liver parenchyma. Further evaluation with either triple phase CT or MRI is recommended. There is a small amount of pericholecystic fluid is most likelyreactive. There is small volume ascites. There is an umbilical hernia containing a small volume of ascitic fluid which maycorrelate with patient's symptoms. Please see the dedicated interpretation of the thorax for intrathoracic findings LE venous Dopplers initial read: No evidence of deep venous thrombosis. EKG as per my interpretation : Rate 105, sinus tachycardia, LAD, LAFB, T wave abnormalities, ST depression lateral leads
[2022-08-03] MEDS ORDERED: LABETALOL HCL IV 5 MG/ML 20ML IV STA (03:23)
[2022-08-03] MEDS ORDERED: lisinopril 5 MG TAB PO ONE ×2 (05:05→08:00)
[2022-08-03] MEDS ORDERED: ACETAMINOPHEN 500 MG TAB PO PRN (06:04)
[2022-08-03] MEDS ORDERED: traMADol HCL 50 MG TABLET PO PRN (06:04)
[2022-08-03] MEDS ORDERED: PROMETHAZINE HCL 12.5 MG in SODIUM CHLORIDE 0.9% 50 ML IV PRN (06:04)
[2022-08-03] MEDS ORDERED: NITROGLYCERIN SL 0.4 MG/TAB TAB SL PRN (06:04)
[2022-08-03 06:38] LABS: Estimated Average Glucose 166 mg/dl; Hemoglobin A1C 7.4 % (4.5-5.6)
[2022-08-03] MEDS ORDERED: FLUARIX QUADRIVALENT 0.5 ML SYR IM ONE (06:38)
[2022-08-03] MEDS ORDERED: FUROSEMIDE 40 MG/4 ML VIAL IV ONE ×2 (07:30→08:00)
--- NOTE | 2022-08-03 07:52 | Ultrasound Report ---
BILATERAL LOWER EXTREMITY VENOUS DOPPLER CLINICAL HISTORY: leg swelling, elevated D-dimer COMPARISON STUDY: No previous studies for comparison. TECHNIQUE: Sonography of the deep venous system of the bilateral lower extremities was performed. Co mpression and augmentation were evaluated. FINDINGS: The bilateral common femoral, superficial femoral and popliteal veins were compressible. A ugmentation was normal. Flow was shown within the deep calf vessels. There is minimal superficial thr ombus adherent to the islas of the bilateral greater saphenous veins. The focus within the left great er saphenous vein measures 1 cm in extent. IMPRESSION: 1. No evidence of deep venous thrombus within the bilateral lower extremities. 2. Minimal superficial thrombus within the bilateral greater saphenous veins. This finding will be ca lled/faxed to ordering provider at time of dictation. ACT 112: Negative or not required by law. Electronically signed by: Anastacio Gonzales M.D. 08/03/2022 7:51 AM
[2022-08-03] MEDS ORDERED: METOPROLOL TARTRATE 25 MG TAB PO SCH ×2 (08:00→09:00)
[2022-08-03 08:15] LABS: Amphetamines+Metham, Urine Neg (Neg); Barbiturates, Urine Neg (Neg); Benzodiazepine, Urine Neg (Neg); Cocaine, Urine Neg (Neg); MDMA (Ecstacy), Urine Neg (Neg); Methadone, Urine Neg (Neg); Opiate, Urine Neg (Neg); Phencyclidine, Urine Neg (Neg)
[2022-08-03] MEDS ORDERED: LABETALOL HCL IV 5 MG/ML 20ML IV PRN ×3 (08:24→10:33)
[2022-08-03 08:25] LABS: Basophils # (auto) 0.03 K/uL (0-0.2); Basophils % (auto) 0.4 %; Eosinophils % (auto) 1.3 %; Hematocrit (blood only) 50.3 % (40.1-51.0); Hemoglobin 16.3 g/dl (14.0-18.0); Immature Granulocytes # (auto) 0.02 K/uL (0.00-0.02); Immature Granulocytes % (auto) 0.3 %; Lymphocytes # (auto) 1.27 K/uL (1.2-3.4); Lymphocytes % (auto) 16.4 %; Mean Corpuscular Hemoglobin 29.6 pg (25.0-34.0); Mean Corpuscular Hgb Conc 32.4 g/dL (32.0-36.0); Mean Corpuscular Volume 91.3 fL (80.0-100.0); Mean Platelet Volume 12.9 fL (9.4-12.4); Monocytes # (auto) 0.72 K/uL (0.24-0.82); Monocytes % (auto) 9.3 %; Neutrophils # (auto) 5.61 K/uL (1.4-6.5); Neutrophils % (auto) 72.3 %; Platelet Count 209 K/uL (130-400); RDW Coefficient of Variation 13.9 % (11.5-14.5); RDW Standard Deviation 46.6 fL (36.4-46.3); Red Blood Count 5.51 M/uL (4.63-6.08); White Blood Count 7.75 K/ul (4.8-10.8)
[2022-08-03] MEDS ORDERED: GLUCOSE 10 TAB/TUBE PO PRN (08:47)
[2022-08-03] MEDS ORDERED: CARBOHYDRATES FOR HYPOGLYCEMIA PO PRN (08:47)
[2022-08-03] MEDS ORDERED: GLUCOSE 40% GEL 15 GM TUBE PO PRN (08:47)
[2022-08-03] MEDS ORDERED: DEXTROSE 50% 50 ML SYRINGE IV PRN (08:47)
[2022-08-03] MEDS ORDERED: GLUCAGON FOR INJ 1 MG VIAL SQ PRN (08:47)
[2022-08-03 08:51] LABS: Albumin Globulin Ratio 0.8 (0.9-2); Albumin Level 3.2 gm/dl (3.4-5.0); BUN Creatinine Ratio 14.8 (10-20); Bilirubin,Total 1.7 mg/dl (0.2-1.0); Calcium 8.4 mg/dl (8.5-10.1); Creatinine Clr Calc Pharmacy 102.8 ml/min; Est GFR (African American) 94.2 ml/min; Est GFR (Non-African American) 81.3 ml/min; Globulin 4.1 gm/dl (2.5-4.0); Potassium 3.7 mmol/L (3.5-5.1); Total Protein 7.3 gm/dl (6.0-8.3)
[2022-08-03] MEDS ORDERED: hydrALAZINE 10 MG TAB PO SCH (09:00)
[2022-08-03] MEDS ORDERED: ENOXAPARIN INJ 40 MG/0.4 ML SYR SQ SCH (09:00)
[2022-08-03] MEDS ORDERED: LANTUS PER UNIT CHARGE SQ SCH (09:00)
[2022-08-03] MEDS ORDERED: lisinopril 10 MG TAB PO ONE (09:00)
--- NOTE | 2022-08-03 09:02 | CT Scan Report ---
CT ANGIOGRAPHY OF THE CHEST, PULMONARY EMBOLUS PROTOCOL CLINICAL HISTORY: Shortness of breath. Evaluate for pulmonary embolus. COMPARISON STUDY: Chest radiograph performed earlier today. TECHNIQUE: Following IV administration of 117 mL of Optiray, helical axial images of the chest were o btained utilizing the pulmonary embolus protocol. Maximal intensity projections and sagittal and cor onal reformats were viewed on an independent 3D workstation. IV contrast was administered without co mplication. Automated exposure control was utilized for the study. A dose lowering technique was ut ilized adhering to the principles of ALARA. CT DOSE: 2329.08 mGy.cm FINDINGS: No pulmonary emboli are identified. Moderate cardiomegaly is noted. There is no pericardia l effusion. There is aortic valvular calcification. Small to moderate right and small left pleural ef fusions are noted. Subpleural opacities within the lower lungs favor atelectasis. There is no consoli dation to suggest pneumonia. There is mild interlobular septal thickening. No thoracic lymphadenopath y is present. Abdomen and pelvis will be reported separately. Upper abdominal ascites is noted. There is hepatic steatosis with suspected cirrhosis. Numerous hypervascular hepatic foci are noted on the CT of the abdomen and pelvis. These are not well visualized on this exam. IMPRESSION: 1. No pulmonary emboli identified. 2. Cardiomegaly. Small to moderate right and small left pleural effusions. Possible interstitial mild pulmonary edema. 3. Hepatic steatosis and suspected cirrhosis. Numerous hypervascular hepatic foci/lesions are better depicted on the CT of the abdomen or pelvis. These are indeterminate. Nonemergent liver protocol MRI is recommended. ACT 112: Negative or not required by law. Electronically signed by: Anastacio Gonzales M.D. 08/03/2022 9:00 AM
[2022-08-03] MEDS: hydrALAZINE 10 MG TAB PO SCH ×2 (09:11→14:12)
[2022-08-03] MEDS: FUROSEMIDE 40 MG/4 ML VIAL IV SCH ×2 (09:12→16:32)
[2022-08-03] MEDS ORDERED: PHARMACY GLYCEMIC MGMT CONSULT PRN (09:23)
--- NOTE | 2022-08-03 09:37 | Cardiology Consultation ---
Date of Consultation August 03, 2022 Assessment & Plan (1) Hypertensive urgency: The pathophysiology and medical consequences of longstanding uncontrolled hypertension were discussed with the patient and his at great lengths today. I suspect that he has longstanding uncontrolled hypertension given the fact he is not seen a physician in 30 years and this is ultimately led to hypertensive heart disease with mild reduced LV systolic function. I personally reviewed the CT of his abdomen and luckily his abdominal aorta does not appear distended and no sign of dissection Will increase lisinopril to a total of 40 mg daily today. I suspect he will require multiple antihypertensive agents for complete BP control. Will follow and adjust medications closely (2) NICM (nonischemic cardiomyopathy): No signs of acute coronary syndrome. EKG reveals left anterior fascicular block Severe concentric LVH on echocardiogram, most likely hypertensive in nature but will require outpatient cardiac MRI to rule out infiltrative disease as well (3) CAD (coronary artery disease): CT of the chest personally reviewed shows coronary artery calcifications present in both the left and right coronary artery distributions No clinical criteria for acute coronary syndrome is present May consider stress cardiac MRI to be completed in [place] in the future (4) Pulmonary hypertension: Started on Lasix 40 mg IV twice daily We will continue to follow clinically (5) Morbid obesity: (6) Mitral regurgitation: History of Present Illness Reason for Consultation: Hypertensive urgency Requesting Physician: ESTEE Attending Physician: Lane Hugo MD History of Present Illness It was my pleasure to see Mr. Ramirez in cardiac consultation today August 03, 2022. He is a very pleasant 46-year-old gentleman who has not been seen by a physician in 30 years. He presented to [facility] on 08/02/2022 with complaints of abdominal discomfort and lower extremity edema. He and his state that he has been having issues off and on for approximately last month. Some days he would feel that his abdomen was distended including his hernia which was associate with lower extremity edema. Other days, he would not have any distention or edema. His symptoms became more consistent happening on a daily basis over the last few days to the point where when his abdomen was distended he was getting short of breath feeling as though he is not able to expand his lungs. He has had abdominal pain associate with the distention but denies any chest pain, palpitations, lightheadedness or dizziness. Upon arrival emergency department his blood pressure was extremely elevated but he states that he has been feeling better since admission with only receiving minimal medications. Allergies Allergy/AdvReac Type Severity Reaction Status Date / Time No Known Allergies Allergy Verified 08/02/22 21:51 Patient History Medical History Psoriasis Umbilical hernia Surgical History No pertinent past surgical history Social History Smoking Status: Current every day smoker Cigarettes Per Day: 15; Do You Dip or Chew Tobacco: Yes; Tobacco Cessation Education Requested by Patient: No Hx Alcohol Use: Yes Alcohol type: beer Hx Substance Use: Yes Last Used Substance: Days (ago) Preferred Language: Sinhala Communication Ability: Effective Offal Trimmer Required: No Beliefs That Will Affect Care: None Current Living Situation: Spouse Feels Safe at Home: Yes Safety Concerns: Feels Safe At This Time Assistive Devices: Glasses Review of Systems Review of Systems: All systems reviewed & are unremarkable except as noted in HPI & below Physical Exam Physical Exam: General: Awake, alert and oriented x 3. No acute distress. HEENT: Normocephalic, atraumatic. Pupils equal, round and reactive to light and accommodation. Extraocular muscles are intact. Anicteric sclera. Moist mucous membranes. Neck: No JVD. No bruit. Cardiovascular: Regular. Positive S-4. Normal S-1 and S-2. No S-3. No murmurs or rubs. Pulmonary: Clear to auscultation B/L. No rales, rhonchi or wheezing Abdomen: Bowel sounds x 4, distended. No rebound, guarding or tenderness. No organomegaly. Extremities: No clubbing, cyanosis. +2 bilateral lower extremity pitting edema. +2 pedal pulses bilaterally. Skin: Warm and dry. Results & Data ([facility]) Vital Signs (Past 12 Hours) Vital Signs Temp Pulse Pulse Pulse Resp BP BP 08/03/22 08:00 08/03/22 08:00 08/03/22 09:19 95 H 215/155 H 08/03/22 07:35 36.6 C 85 24 238/146 H 08/03/22 06:22 36.4 C L 83 26 H 198/139 H 08/03/22 06:21 08/03/22 05:53 79 19 214/143 H 08/03/22 05:00 85 23 216/155 H 08/03/22 04:25 91 H 23 214/134 H 08/03/22 03:02 94 H 25 H 270/134 H 08/03/22 03:01 273/196 H 08/03/22 01:00 89 21 08/03/22 00:02 92 H 21 08/02/22 22:00 95 H 16 BP Pulse Ox Pulse Ox O2 Del Method O2 Del Method 08/03/22 08:00 Room Air 08/03/22 08:00 94 Room Air 08/03/22 09:19 08/03/22 07:35 219/143 H 94 Room Air 08/03/22 06:22 230/158 H 94 Room Air 08/03/22 06:21 94 Room Air 08/03/22 05:53 Room Air 08/03/22 05:00 92 Room Air 08/03/22 04:25 93 Room Air 08/03/22 03:02 91 Room Air 08/03/22 03:01 08/03/22 01:00 232/144 H 92 Room Air 08/03/22 00:02 231/150 H 94 Room Air 08/02/22 22:00 215/137 H 97 Room Air
--- NOTE | 2022-08-03 09:59 | CT Scan Report ---
CT abd pelvis IV con only CLINICAL HISTORY: abdominal pain, umbilical hernia TECHNIQUE: Helical axial images of the abdomen and pelvis were obtained and displayed. Automated dose lowering techniques and/or adjustment according to patient size were utilized for this exam. This e xam was performed with intravenous contrast. COMPARISON: None available at the time of this dictation. FINDINGS: Lower chest: Mild right and trace left pleural effusions noted. There is associated atelectasis. Liver: Nodular contour of the liver is seen compatible with cirrhosis. Numerous small enhancing lesio ns are seen. Gallbladder and biliary tree: Pericholecystic fluid is seen without emy wall thickening. No intra- or extrahepatic biliary ductal dilation. Pancreas: Unremarkable, no focal lesions. Spleen: Unremarkable. Adrenals: Unremarkable. Kidneys and ureters: Exophytic cyst measuring 12 mm is seen in the left kidney. Bladder: Unremarkable. Reproductive organs: Unremarkable. Bowel: Unremarkable appearance of the bowel. The appendix is normal. Lymph nodes Retroperitoneal: Unremarkable. Pelvic: Prominent subcentimeter inguinal nodes are noted. Mesenteric: Unremarkable. Peritoneum: Trace abdominal fluid is seen. Vessels: Atherosclerotic calcifications are seen. A few varices are noted in the body wall. Abdominal wall: An umbilical hernia is seen containing fat and fluid. Body wall edema is noted. Bones: Degenerative changes in the visualized spine. IMPRESSION: 1. Cirrhotic contour of the liver with numerous enhancing small nodules. If not previously evaluated , MRI liver mass protocol is recommended. 2. Umbilical hernia containing fat and fluid. 3. Bilateral pleural effusions and small volume ascites. ACT 112: Negative or not required by law. Electronically signed by: Marquise Hwang M.D. 08/03/2022 9:58 AM
--- NOTE | 2022-08-03 10:09 | CT Scan Report ---
CT head/brain wo con CLINICAL HISTORY: hypertensive crisis Technique: Contiguous axial CT images of the head were acquired from the base of the skull to the park aron without intravenous contrast administration. Images were viewed in brain, subdural and bone [facility]. Automated dose lowering techniques and/or adjustment according to patient size were utilized for this exam. Comparison: None available at the time of this dictation. Findings: Radiodensities are seen in the right cerebellum and ludwig. Imaged portions of the paranasal sinuses and mastoid air cells are clear. The orbits appear normal. There are no acute fractures of the calvaria or scalp swelling. Impression: Hyperdensities in the right cerebellum and ludwig are concerning for intracranial hemorrhage in this pa tient with a hypertensive crisis. ACT 112: Negative or not required by law. Electronically signed by: Marquise Hwang M.D. 08/03/2022 10:07 AM
[2022-08-03] MEDS ORDERED: LORazepam 0.5 MG in SYRINGE 0 ML IV ONE (10:56)
--- NOTE | 2022-08-03 11:08 | XRay Report ---
XR chest 1V portable CLINICAL HISTORY: Shortness of breath. COMPARISON STUDY: None. FINDINGS: Moderate cardiomegaly is noted. There is pulmonary vascular congestion with small bilateral pleural effusions. There is no pneumothorax. IMPRESSION: Cardiomegaly. Pulmonary vascular congestion with small bilateral pleural effusions. ACT 112: Negative or not required by law. Electronically signed by: Anastacio Gonzales M.D. 08/03/2022 11:07 AM
[2022-08-03] MEDS ORDERED: STAT IV Infusion **Titration per Protocol STA (11:11)
--- NOTE | 2022-08-03 11:29 | Critical Care Consultation ---
Date of Consultation August 03, 2022 Assessment & Plan (1) Stroke: ICU Assessment and Plans Reason Critically Ill: 46-year-old male here with undiagnosed PMHx who presented with hypertensive urgency and who was admitted for heart failure and concern stroke. Neuro - [facility] ICU: NEGATIVE Sedation: none Analgesia: none Hemorrhagic stroke -CT head: Hyperdensities in the right cerebellum and ludwig are concerning for intracranial hemorrhage in this patient with a hypertensive crisis. -recommend MRI brain -patient adamantly denies MRI and sedation, states he does not want invasive intervention -neurology consulted may require transfer to tertiary center repeat CT head in morning Cardiac - Hypertensive urgency -blood pressure on admit 215/137 -started on nicardipine drip in ICU, BP recheck 158/88 -will start oral lisinopril, metoprolol, hydralazine, furosemide -CT A/P: no aortic dissection CHF -echo: EF 45-50%, severe concentric LVH, severe pulm HTN -cardiology consulted recommend outpatient cardiac MRI increased lisinopril, furosemide -troponin elevated but stable Elevated D-Dimer -CTA chest negative for PE -venous doppler negative Respiratory - Tobacco Abuse -currently smoking 15 cigarettes daily -wheeze noted on exam, recommend PFTs in outpatient B/l Pleural Effusions -noted on CT -started lasix -no concern sleep apnea at this time GI - heart healthy carb consistent diet fluid restriction Hepatic steatosis with concern cirrhosis -noted on CT with numerous small enhancing lesions -MRI liver recommended -total bili 1.7 -hepatic panel pending -consulted GI RENAL/LYTES - No significant electrolyte derangement. Replace lytes as needed. - No concerns at this time. ENDO - Diabetes -A1c 7.4 -start SSI -consulted consumer educator HEME - Stable H&H. ID - No concerns for infection at this point. INTEGUMENTARY - skin clean dry intact LINES/IV ACCESS - PIVs intact. DVT PROPHYLAXIS - SCDs Thank you for allowing us to be part of this patient's care. Please refer to Dr. Rowan's documentation for any further recommendations. (2) Congestive heart failure due to hypertension: (3) Hypertensive urgency: (4) Cirrhosis: (5) Ascites: (6) Morbid obesity: (7) Pulmonary hypertension: (8) CAD (coronary artery disease): Plan Patient seen and examined with the resident physician. I agree with her assessment and plan aside for any additions/exceptions noted: Patient with evidence of hypertensive emergency on admission due to increasing shortness of breath and lower extremity edema. He failed as needed IV antihypertensive medication and ICU was consulted for management of continuous antihypertensive infusions. I placed the patient on nicardipine with target systolic blood pressures in the 160. He had an echo completed today which demonstrates hypertensive cardiomyopathy with an EF of 45 to 50% and grade 2 diastolic dysfunction. He has aortic valve sclerosis. He also likely has secondary pulmonary hypertension due to left- sided heart disease. Additionally, he had a CT of his head which revealed hypodensities in the right cerebellum and ludwig concerning for intracranial hemorrhage. He vehemently opposes and refuses transfer to a tertiary center with neuro ICU capabilities and neurosurgery. He also vehemently refuses an MRI of his brain. This was extensively discussed with him by me, neurology and nursing staff. Will continue to keep a close eye on his blood pressure and neurocognitive status. Continue every hour neurochecks, frequent glucose checks and maintaining the head of bed above 35 degrees. Avoid anticoagulants. We will obtain CT head immediately if any signs of worsening neuro status. History of Present Illness Reason for Consultation: HTN urgency with stroke Attending Physician: Lane Hugo MD History of Present Illness 46yo Male who has not seen a physician in 30 years no known PMH or regular medications here for hypertensive urgency with concern stroke found on CT. Patient initially came to ED with concern bloating and leg swelling he had attr ibuted to his hernia. He denies any fever chills headache dizziness change in vision nausea vomitting SOB CP loss of bowel or bladder control weakness or numbness in his extremities, does note increasing leg swelling over time. Describes a 24 pack year history of smoking ongoing at this time, alcohol once a month, no illicit drug usage. He has a family history of HTN and heart disease, his brother of an unknown illness as an adult after stopping his medications. Allergies Allergy/AdvReac Type Severity Reaction Status Date / Time No Known Allergies Allergy Verified 08/02/22 21:51 Patient History Medical History Psoriasis Umbilical hernia Surgical History No pertinent past surgical history Family History (Updated 08/03/22 @ 13:01 by Dominick Green MD) Father , age 72 with cirrhosis Cirrhosis Mother , age 67 with heart disease and diabetes Heart disease Diabetes Social History (Updated 08/03/22 @ 13:02 by Dominick Green MD) Smoking Status: Current every day smoker Tobacco Type: Smokeless Tobacco (Dip or Chew) Cigarettes Per Day: 15; Do You Dip or Chew Tobacco: Yes; Tobacco Cessation Education Requested by Patient: No Hx Alcohol Use: Yes Alcohol type: beer Alcohol Intake Frequency Comment: 6 beers about once per month Hx Substance Use: Yes Last Used Substance: Days (ago) Preferred Language: Divehi Communication Ability: Effective Shelter Director Required: No Beliefs That Will Affect Care: None Current Living Situation: Spouse Current Living Situation Comment: current occupational status: employed 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 Feels Safe at Home: Yes Safety Concerns: Feels Safe At This Time Assistive Devices: None Review of Systems Review of Systems: All systems reviewed & are unremarkable except as noted in HPI & below Physical Exam Constitutional: + morbidly obese and + edematous Eyes: PERRL, conjunctivae normal, anicteric sclerae ENMT: external ear and nose normal, oropharynx normal Neck: trachea midline, no thyromegaly Respiratory: Auscultation: + wheezes (diffuse b/l) Cardiovascular: Rate/Rhythm: regular rate and regular rhythm Extremities: + edema (pitting +2 b/l to mid thigh) Gastrointestinal (Abdomen): Inspection/Auscultation: abdomen normal to inspection and + abdomen distended Percussion/Palpation: abdomen soft; abdome n nontender Neurologic: CN's II-XI intact bilaterally and moves all extremities Coordination: normal [id number] test and normal rapid alternating movements Results & Data Results & Data ([facility]) Vital Signs (Past 12 Hours) Vital Signs Temp Pulse Pulse Pulse Resp BP BP 08/03/22 11:09 82 21 08/03/22 10:22 79 08/03/22 08:00 08/03/22 08:00 08/03/22 09:19 95 H 215/155 H 08/03/22 07:35 36.6 C 85 24 238/146 H 08/03/22 06:22 36.4 C L 83 26 H 198/139 H 08/03/22 06:21 08/03/22 05:53 79 19 214/143 H 08/03/22 05:00 85 23 216/155 H 08/03/22 04:25 91 H 23 214/134 H 08/03/22 03:02 94 H 25 H 270/134 H 08/03/22 03:01 273/196 H 08/03/22 01:00 89 21 08/03/22 00:02 92 H 21 BP Pulse Ox Pulse Ox O2 Del Method O2 Del Method 08/03/22 11:09 214/150 H 95 Room Air 08/03/22 10:22 180/107 H 08/03/22 08:00 Room Air 08/03/22 08:00 94 Room Air 08/03/22 09:19 08/03/22 07:35 219/143 H 94 Room Air 08/03/22 06:22 230/158 H 94 Room Air 08/03/22 06:21 94 Room Air 08/03/22 05:53 Room Air 08/03/22 05:00 92 Room Air 08/03/22 04:25 93 Room Air 08/03/22 03:02 91 Room Air 08/03/22 03:01 08/03/22 01:00 232/144 H 92 Room Air 08/03/22 00:02 231/150 H 94 Room Air Diagnostic Findings Laboratory Results WBC 7.75 K/ul (4.8-10.8) 08/03/22 08:14 RBC 5.51 M/uL (4.63-6.08) 08/03/22 08:14 Hgb 16.3 g/dl (14.0-18.0) 08/03/22 08:14 Hct 50.3 % (40.1-51.0) 08/03/22 08:14 MCV 91.3 fL (80.0-100.0) 08/03/22 08:14 MCH 29.6 pg (25.0-34.0) 08/03/22 08:14 MCHC 32.4 g/dL (32.0-36.0) 08/03/22 08:14 RDW Std Deviation 46.6 fL (36.4-46.3) H 08/03/22 08:14 RDW Coeff of Nain 13.9 % (11.5-14.5) 08/03/22 08:14 Plt Count 209 K/uL (130-400) 08/03/22 08:14 MPV 12.9 fL (9.4-12.4) H 08/03/22 08:14 Immature Gran % (Auto) 0.3 % 08/03/22 08:14 Neut % (Auto) 72.3 % 08/03/22 08:14 Lymph % (Auto) 16.4 % 08/03/22 08:14 [place] % (Auto) 9.3 % 08/03/22 08:14 Eos % (Auto) 1.3 % 08/03/22 08:14 Baso % (Auto) 0.4 % 08/03/22 08:14 Neut # (Auto) 5.61 K/uL (1.4-6.5) 08/03/22 08:14 Lymph # (Auto) 1.27 K/uL (1.2-3.4) 08/03/22 08:14 [place] # (Auto) 0.72 K/uL (0.24-0.82) 08/03/22 08:14 Eos # (Auto) 0.10 K/uL (0-0.50) 08/03/22 08:14 Baso # (Auto) 0.03 K/uL (0-0.2) 08/03/22 08:14 Immature Gran # (Auto) 0.02 K/uL (0.00-0.02) 08/03/22 08:14 PT 13.3 Seconds (9.0-12.0) H 08/03/22 00:21 INR 1.3 (0.9-1.1) H 08/03/22 00:21 APTT 30.8 Seconds (21.0-31.0) 08/03/22 00:21 PTT Ratio 1.1 08/03/22 00:21 D-Dimer 1150 ug/L FEU (0-500) H* 08/02/22 22:31 Sodium 139 mmol/L (136-145) 08/03/22 08:14 Potassium 3.7 mmol/L (3.5-5.1) 08/03/22 08:14 Chloride 99 mmol/L (98-107) 08/03/22 08:14 Carbon Dioxide 33 mmol/L (21-32) H 08/03/22 08:14 Anion Gap 7 (3-11) 08/03/22 08:14 BUN 16 mg/dl (6-23) 08/03/22 08:14 Creatinine 1.08 mg/dl (0.6-1.4) 08/03/22 08:14 Est Cr Clr Drug Dosing 102.8 ml/min 08/03/22 08:14 Est GFR ( Amer) 94.2 ml/min 08/03/22 08:14 Est GFR (Non-Af Amer) 81.3 ml/min 08/03/22 08:14 BUN/Creatinine Ratio 14.8 (10-20) 08/03/22 08:14 Glucose 128 mg/dl (70-99(Fasting)) H 08/03/22 08:14 POC Glucose 119 mg/dl (70-99) H 08/03/22 09:03 Estimat Average Glucose 166 mg/dl 08/02/22 19:18 Hemoglobin A1c 7.4 % (4.5-5.6) H 08/02/22 19:18 Calcium 8.4 mg/dl (8.5-10.1) L 08/03/22 08:14 Magnesium Cancelled 08/02/22 00:21 Total Bilirubin 1.7 mg/dl (0.2-1.0) H 08/03/22 08:14 Direct Bilirubin 0.4 mg/dl (0-0.2) H 08/02/22 22:31 AST 18 U/L (13-39) 08/03/22 08:14 ALT 15 U/L (7-52) 08/03/22 08:14 Alkaline Phosphatase 74 U/L (34-104) 08/03/22 08:14 Troponin I High Sens 40.0 pg/ml (0-20) H 08/03/22 08:14 B-Natriuretic Peptide 994 pg/ml (0-100) H 08/02/22 22:31 Total Protein 7.3 gm/dl (6.0-8.3) 08/03/22 08:14 Albumin 3.2 gm/dl (3.4-5.0) L 08/03/22 08:14 Globulin 4.1 gm/dl (2.5-4.0) H 08/03/22 08:14 Albumin/Globulin Ratio 0.8 (0.9-2) L 08/03/22 08:14 Lipase 22 U/L (11-82) 08/02/22 19:18 TSH 2.380 uIu/ml (0.300-4.500) 08/02/22 19:18 Urine Color Dark Yellow 08/02/22 19:24 Urine Appearance Clear (Clear) 08/02/22 19:24 Urine pH 5.5 (4.5-7.5) 08/02/22 19:24 Ur Specific [place] 1.028 (1.000-1.030) 08/02/22 19:24 Urine Protein 4+ (Negative) H 08/02/22 19:24 Urine Glucose (UA) Negative (Negative) 08/02/22 19:24 Urine Ketones Trace (Negative) H 08/02/22 19:24 Urine Blood 2+ (Negative) H 08/02/22 19:24 Urine Nitrite Negative (Negative) 08/02/22 19:24 Urine Bilirubin 1+ (Negative) H 08/02/22 19:24 Urine Urobilinogen Negative (Negative) 08/02/22 19:24 Ur Leukocyte Esterase Negative (Negative) 08/02/22 19:24 Urine WBC (Auto) 1-5 /hpf (0-5) 08/02/22 19:24 Urine RBC (Auto) 5-10 /hpf (0-4) H 08/02/22 19:24 U Hyaline Cast (Auto) >30 /lpf (0-5) H 08/02/22 19:24 U Epithel Cells (Auto) 5-10 /lpf (0-5) H 08/02/22 19:24 Urine Bacteria (Auto) Negative (Negative) 08/02/22 19:24 Ur Renal Epithelial Cell Not Reportable 08/02/22 19:24 Granular Casts 1-5 /lpf (0) H 08/02/22 19:24 Nasal Screen MRSA (PCR) Negative (Negative) 08/03/22 06:15 Urine Opiates Screen Neg (Neg) 08/03/22 07:25 Ur Methadone, Qual Neg (Neg) 08/03/22 07:25 Urine Barbiturates Neg (Neg) 08/03/22 07:25 Ur Phencyclidine (PCP) Neg (Neg) 08/03/22 07:25 U Amphetamin/Meth Scrn Neg (Neg) 08/03/22 07:25 MDMA (Ecstasy) Screen Neg (Neg) 08/03/22 07:25 U Benzodiazepines Scrn Neg (Neg) 08/03/22 07:25 Ur Cocaine Metabolite Neg (Neg) 08/03/22 07:25 U Marijuana (THC) Screen Neg (Neg) 08/03/22 07:25 Ethyl Alcohol mg/dL < 10.0 mg/dl (<10.0) 08/03/22 05:32 SARS-CoV-2, RNA, NAAT NEGATIVE (NEGATIVE) 08/03/22 03:10 Impressions Abdomen/Pelvis CT 08/02/22 21:53 CT abd pelvis IV con only CLINICAL HISTORY: abdominal pain, umbilical hernia TECHNIQUE: Helical axial images of the abdomen and pelvis were obtained and displayed. Automated dose lowering techniques and/or adjustment according to patient size were utilized for this exam. This exam was performed with intravenous contrast. COMPARISON: None available at the time of this dictation. FINDINGS: Lower chest: Mild right and trace left pleural effusions noted. There is associated atelectasis. Liver: Nodular contour of the liver is seen compatible with cirrhosis. Numerous small enhancing lesions are seen. Gallbladder and biliary tree: Pericholecystic fluid is seen without emy wall thickening. No intra- or extrahepatic biliary ductal dilation. Pancreas: Unremarkable, no focal lesions. Spleen: Unremarkable. Adrenals: Unremarkable. Kidneys and ureters: Exophytic cyst measuring 12 mm is seen in the left kidney. Bladder: Unremarkable. Reproductive organs: Unremarkable. Bowel: Unremarkable appearance of the bowel. The appendix is normal. Lymph nodes Retroperitoneal: Unremarkable. Pelvic: Prominent subcentimeter inguinal nodes are noted. Mesenteric: Unremarkable. Peritoneum: Trace abdominal fluid is seen. Vessels: Atherosclerotic calcifications are seen. A few varices are noted in the body wall. Abdominal wall: An umbilical hernia is seen containing fat and fluid. Body wall edema is noted. Bones: Degenerative changes in the visualized spine. IMPRESSION: 1. Cirrhotic contour of the liver with numerous enhancing small nodules. If not previously evaluated, MRI liver mass protocol is recommended. 2. Umbilical hernia containing fat and fluid. 3. Bilateral pleural effusions and small volume ascites. ACT 112: Negative or not required by law. Electronically signed by: Marquise Hwang M.D. 08/03/2022 9:58 AM Chest X-Ray 08/02/22 21:53 XR chest 1V portable CLINICAL HISTORY: Shortness of breath. COMPARISON STUDY: None. FINDINGS: Moderate cardiomegaly is noted. There is pulmonary vascular congestion with small bilateral pleural effusions. There is no pneumothorax. IMPRESSION: Cardiomegaly. Pulmonary vascular congestion with small bilateral pleural effusions. ACT 112: Negative or not required by law. Electronically signed by: Anastacio Gonzales M.D. 08/03/2022 11:07 AM Chest CTA 08/02/22 23:35 CT ANGIOGRAPHY OF THE CHEST, PULMONARY EMBOLUS PROTOCOL CLINICAL HISTORY: Shortness of breath. Evaluate for pulmonary embolus. COMPARISON STUDY: Chest radiograph performed earlier today. TECHNIQUE: Following IV administration of 117 mL of Optiray, helical axial images of the chest were obtained utilizing the pulmonary embolus protocol. Maximal intensity projections and sagittal and coronal reformats were viewed on an independent 3D workstation. IV contrast was administered without complication. Automated exposure control was utilized for the study. A dose lowering technique was utilized adhering to the principles of ALARA. CT DOSE: 2329.08 mGy.cm FINDINGS: No pulmonary emboli are identified. Moderate cardiomegaly is noted. There is no pericardial effusion. There is aortic valvular calcification. Small to moderate right and small left pleural effusions are noted. Subpleural opacities within the lower lungs favor atelectasis. There is no consolidation to suggest pneumonia. There is mild interlobular septal thickening. No thoracic lymphadenopathy is present. Abdomen and pelvis will be reported separately. Upper abdominal ascites is noted. There is hepatic steatosis with suspected cirrhosis. Numerous hypervascular hepatic foci are noted on the CT of the abdomen and pelvis. These are not well visualized on this exam. IMPRESSION: 1. No pulmonary emboli identified. 2. Cardiomegaly. Small to moderate right and small left pleural effusions. Possible interstitial mild pulmonary edema. 3. Hepatic steatosis and suspected cirrhosis. Numerous hypervascular hepatic foci/lesions are better depicted on the CT of the abdomen or pelvis. These are indeterminate. Nonemergent liver protocol MRI is recommended. ACT 112: Negative or not required by law. Electronically signed by: Anastacio Gonzales M.D. 08/03/2022 9:00 AM Venous Doppler Study 08/02/22 23:35 BILATERAL LOWER EXTREMITY VENOUS DOPPLER CLINICAL HISTORY: leg swelling, elevated D-dimer COMPARISON STUDY: No previous studies for comparison. TECHNIQUE: Sonography of the deep venous system of the bilateral lower extremities was performed. Compression and augmentation were evaluated. FINDINGS: The bilateral common femoral, superficial femoral and popliteal veins were compressible. Augmentation was normal. Flow was shown within the deep calf vessels. There is minimal superficial thrombus adherent to the islas of the bilateral greater saphenous veins. The focus within the left greater saphenous vein measures 1 cm in extent. IMPRESSION: 1. No evidence of deep venous thrombus within the bilateral lower extremities. 2. Minimal superficial thrombus within the bilateral greater saphenous veins. This finding will be called/faxed to ordering provider at time of dictation. ACT 112: Negative or not required by law. Electronically signed by: Anastacio Gonzales M.D. 08/03/2022 7:[address] 08/03/22 08:16 CT head/brain wo con CLINICAL HISTORY: hypertensive crisis Technique: Contiguous axial CT images of the head were acquired from the base of the skull to the vertex without intravenous contrast administration. Images were viewed in brain, subdural and bone windows. Automated dose lowering techniques and/or adjustment according to patient size were utilized for this exam. Comparison: None available at the time of this dictation. Findings: Radiodensities are seen in the right cerebellum and ludwig. Imaged portions of the paranasal sinuses and mastoid air cells are clear. The orbits appear normal. There are no acute fractures of the calvaria or scalp swelling. Impression: Hyperdensities in the right cerebellum and ludwig are concerning for intracranial hemorrhage in this patient with a hypertensive crisis. ACT 112: Negative or not required by law. Electronically signed by: Marquise Hwang M.D. 08/03/2022 10:07 AM Medications Administered Current Inpatient Medications Acetaminophen (Acetaminophen 500 Mg Tab) 500 mg PO Q6H PRN PRN Reason: pain/fever Stop: 09/02/22 06:03 Dextrose (Dextrose 50% 50 Ml Syringe) 25 - 50 ml IV UD PRN; Protocol PRN Reason: Hypoglycemia Protocol Stop: 09/02/22 08:46 Enoxaparin Sodium (Enoxaparin Inj 40 Mg/0.4 Ml Syr) 40 mg SQ QAM DAPHNIE Stop: 09/02/22 08:59 Last Admin: 08/03/22 07:59 Dose: 40 mg Furosemide (Furosemide 40 Mg/4 Ml Vial) 40 mg IV [id number] DAPHNIE Stop: 09/02/22 08:59 Last Admin: 08/03/22 09:12 Dose: 40 mg Glucagon (Glucagon For Inj 1 Mg Vial) 1 mg SQ UD PRN; Protocol PRN Reason: Hypoglycemia Protocol Stop: 09/02/22 08:46 Glucose (Glucose 40% Gel 15 Gm Tube) 15 - 30 gm PO UD PRN; Protocol PRN Reason: Hypoglycemia Protocol Stop: 09/02/22 08:46 Glucose (Glucose 10 Tab/Tube) 4 - 8 tab PO UD PRN; Protocol PRN Reason: Hypoglycemia Treatment Stop: 09/02/22 08:46 Hydralazine HCl (Hydralazine 10 Mg Tab) 5 mg PO TID [facility] Stop: 09/02/22 08:59 Last Admin: 08/03/22 09:11 Dose: 5 mg Promethazine HCl 12.5 mg/ (Sodium Chloride) 50.5 mls @ 202 mls/hr IV Q6H PRN PRN Reason: Nausea And Vomiting Stop: 09/02/22 06:03 Nicardipine HCl 25 mg/ Sodium (Chloride) 250 mls @ 50 mls/hr IV .Q5H [facility]; Protocol Stop: 09/02/22 11:14 Insulin Aspart (Insulin Aspart Per Unit) 0 units SC [facility]; Protocol Stop: 09/02/22 11:29 Labetalol HCl (Labetalol Hcl Iv 5 Mg/Ml 20ml) 10 mg IV Q6H PRN PRN Reason: Hypertension SBP>180orDBP>100 Stop: 09/02/22 08:23 Lisinopril (Lisinopril 10 Mg Tab) 10 mg PO QAM [facility] Stop: 09/03/22 08:59 Metoprolol Tartrate (Metoprolol Tartrate 25 Mg Tab) 25 mg PO BID [facility] Stop: 09/02/22 07:59 Last Admin: 08/03/22 08:44 Dose: 25 mg Miscellaneous (Carbohydrates For Hypoglycemia ) 15 - 30 gm PO UD PRN PRN Reason: Hypoglycemia Protocol Stop: 09/02/22 08:46 Miscellaneous Information (Pharmacy Glycemic Mgmt Consult) 1 each N/A UD PRN PRN Reason: Consult Stop: 09/02/22 09:22 Nitroglycerin (Nitroglycerin Sl 0.4 Mg/Tab Tab) 0.4 mg SL UD PRN PRN Reason: Chest Pain Stop: 09/02/22 06:03 Tramadol HCl (Tramadol Hcl 50 Mg Tablet) 25 - 50 mg PO Q4H PRN PRN Reason: Pain Stop: 09/02/22 06:03 Resident Activity Tracking Resident Involvement: Resident Care Provided Care Provided: Adult Hospital Medicine (1) Ascites Ascites type: other type Qualified Code(s): R18.8 - Other ascites (2) Cirrhosis Ascites presence: with ascites Hepatic cirrhosis type: unspecified hepatic cirrhosis Qualified Code(s): K74.60 - Unspecified cirrhosis of liver; R18.8 - Other ascites
[2022-08-03] MEDS: niCARdipine 25 MG in SODIUM CHLORIDE 0.9% 240 ML IV SCH ×4 (11:47→22:15)
[2022-08-03] MEDS: INSULIN ASPART PER UNIT SC SCH ×3 (12:06→20:06)
--- NOTE | 2022-08-03 12:57 | Neurology Consultation ---
Date of Consultation August 03, 2022 Assessment & Plan (1) Intracerebral hemorrhage: (2) Stroke: (3) Hypertensive urgency: (4) Congestive heart failure due to hypertension: (5) Diabetes: Plan this patient has 2 significant intercerebral hemorrhage is seen on CT scan including the right cerebellar hemisphere and midline ludwig. 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 His blood pressure was extraordinarily high and is resulted in some congestive heart failure. He does have elevated hemoglobin A1c. he was not on any medication including blood thinners in the past. On exam he does not have any specific focal neurologic findings or deficits, meningeal signs, or encephalopathy. I explained to him and his daughters who were present at bedside that he does have a small but distinct chance of increasing or worsening the intercerebral hemorrhage and that might require a neurosurgical intervention. I explained that a might be safer for him to be at a tertiary care center with neurosurgery available in case something did happen. They are comfortable with staying here. Recommendations: 1. Control blood pressure as you are doing, aiming initially for a mean arterial pressure between 110 and 120 and then slowly over the next couple of days aiming for a mean arterial pressure of approximately 100. 2. control glucose, aiming to lower the hemoglobin A1c less than 7. 3. Check fasting lipids. Because of his intercerebral hemorrhage she would not be a high dose statin candidate but he could be on a usual statin dose, if indicated 4. repeat CT scan of the head tomorrow morning and compare. The patient is adamant that he does not want an MRI of the brain. I will talk to him tomorrow about the MRI - if he is willing to obtain one 5. Discontinue all cigarette smoking and chewing tobacco. 6. discontinue alcohol for now. 7. I will follow up . Send to [place] or [place], if he changes his mind feels more comfortable at a tertiary center with neurosurgery available. Overall, I spent a total of 90 minutes with this case including review of records, review of CT films, direct evaluation the patient at bedside, discussion of the case with the patient and daughters at bedside, the RN at bedside, Dr. Hwang, radiologist, and Dr. Hugo, including differential diagnosis and treatment options. History of Present Illness Reason for Consultation: Patient is a 46-year-old, who I was asked to see at the request of Dr. Hugo, for neurologic consultation regarding intercerebral hemorrhage. Requesting Physician: Dr. Hugo Attending Physician: Lane Hugo MD History of Present Illness This patient apparently does have a history of hypertension and perhaps even some diabetes but does not follow with doctors Patient came to the emergency room on August 02 with some abdominal pressure and bloating as well as shortness of breath with exertion. He had some tingling in his left hand. He did not have headaches, pain, weakness, or gait problems. He had no new vision issues either. He arrived to the emergency room at 6:58 p.m. on August 02 with a temperature of 36.9, pulse 106, respiratory rate 20, blood pressure was 187/157. Later on it was 215/137. He did not have dizziness or headaches or any tingling in the emergency room. CBC and Chem profile were remarkable for glucose of 173 and a D-dimer 1150. his bilirubin was up as well. Urinalysis was unremarkable. CT angiography of the chest showed cardiomegaly CT scan of the head revealed right cerebellar hemisphere and right mid ludwig hemorrhage. Hemoglobin A1c was 7.4 Currently he feels "great" back to baseline and wants to go home. Allergies Allergy/AdvReac Type Severity Reaction Status Date / Time No Known Allergies Allergy Verified 08/02/22 21:51 Patient History Medical History Psoriasis Umbilical hernia Surgical History No pertinent past surgical history Family History (Updated 08/03/22 @ 13:01 by Dominick Green MD) Father , age 72 with cirrhosis Cirrhosis Mother , age 67 with heart disease and diabetes Heart disease Diabetes Social History (Updated 08/03/22 @ 13:02 by Dominick Green MD) Smoking Status: Current every day smoker Tobacco Type: Smokeless Tobacco (Dip or Chew) Cigarettes Per Day: 15; Do You Dip or Chew Tobacco: Yes; Tobacco Cessation Education Requested by Patient: No Hx Alcohol Use: Yes Alcohol type: beer Alcohol Intake Frequency Comment: 6 beers about once per month Hx Substance Use: Yes Last Used Substance: Days (ago) Preferred Language: Andorran Communication Ability: Effective Guest Services Representative Required: No Beliefs That Will Affect Care: None Current Living Situation: Spouse Current Living Situation Comment: current occupational status: employed 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 Feels Safe at Home: Yes Safety Concerns: Feels Safe At This Time Assistive Devices: None Review of Systems Constitutional: no fever, no fatigue and no weakness Eyes: no diplopia, no eye pain and no worsening vision Ear, Nose, Mouth, Throat: no ear pain, no tinnitus, no hearing loss, no dizziness, no snoring, no hoarseness and no dysphagia Respiratory: no cough and no dyspnea Cardiovascular: no chest pain, no palpitations and no lightheadedness Gastrointestinal: no abdominal pain, no nausea and no vomiting Musculoskeletal: no back pain, no neck pain, no radicular pain, no joint pain and no myalgia Integumentary: no rash and no lesions Neurologic: no gait abnormality, no localized weakness, no generalized weakness, no tingling, no numbness, no tremor(s), no abnormal movements, no headache(s), no abnormal speech, no confusion and no memory loss Psychiatric: no depression, no irritability, no anxiety, no difficulty concentrating, no confusion and no hallucinations Endocrine: no fatigue and no flushing Hematologic / Lymphatic: no easy bleeding and no easy bruising Allergy / Immunological: no urticaria and no problem reported Exam (Neuro) Physical Exam: The patient is right-handed. The patient is awake, alert, and attentive. Speech is normal without any aphasia or dysarthria. The patient can name objects, repeat phrases, and has normal spontaneous speech. Mentation and thought processes are intact, with or ientation to person, place and time, and normal fund of knowledge. Attention and concentration are normal. Mood and affect are normal and appropriate. General appearance and grooming are normal. Short and long-term memory are intact to conversation. The discs are sharp with positive venous pulsations bilaterally. There are no exudates, hemorrhages, or blood vessel changes seen. Pupils are 4 mm bilaterally and reactive to light. Extraocular eye muscles are intact without nystagmus. Visual acuity and visual panchal seem normal grossly to confrontation. There are no deficits to sensation in the face in all 3 distributions of the fifth cranial nerve bilaterally. Corneal reflexes are positive bilaterally. Facial strength and symmetry was normal bilaterally. Hearing seems normal bilaterally. Palate moves well without asymmetry. There is normal sternocleidomastoid and trapezius (shoulder shrug) strength bilaterally. Tongue is midline with good strength bilaterally. Neck has a full range of motion without discomfort. There are no cervical bruits bilaterally. There are no cranial or ocular bruits. Heart is without murmur. There is a regular rhythm and rate. Cervical, thoracic, and lumbar spine are nontender to palpation. Gait is not tested but stance sitting up in bed is quite normal. With outstretched arms there is no drift. There are no resting, postural, or action tremors. There is no ataxia with finger to nose testing. There is good facility in the hands. No other abnormal involuntary movements are noted. Motor strength is 5/5 diffusely in the arms bilaterally including deltoids, biceps, triceps, brachioradialis, wrist flexors and extensors, automotive glass technician, and intrinsic hand muscles. Motor strength is 5/5 diffusely in the legs bilaterally including hip flexors, quadriceps, hamstrings, gastrocnemius, tibialis anterior, tibialis posterior, and Peroneii muscles. Toe extensors are normal and there is good bulk in the extensor digitorum brevis muscles bilaterally. The limbs have good tone without rigidity or spasticity. There is no atrophy noted in the muscles. Muscle bulk is normal, there is no tenderness to palpation, no myotonia to percussion, and no fasciculations seen. Sensory examination is intact to touch and pin throughout all 4 limbs diffusely. Reflexes are 1/4 in the biceps, triceps, brachioradialis, quadriceps, and Achilles tendons bilaterally. There is no clonus bilaterally. Toes are downgoing with plantar stimulation bilaterally. Peripheral pulses are present and of normal quality distally in all 4 limbs. There is no peripheral edema noted in the limbs. Results & Data ([facility]) Vital Signs (Past 12 Hours) Vital Signs Temp Pulse Pulse Pulse Resp BP BP 08/03/22 12:51 93 H 26 H 08/03/22 11:47 78 18 08/03/22 11:09 82 21 08/03/22 10:22 79 08/03/22 08:00 08/03/22 08:00 08/03/22 09:19 95 H 215/155 H 08/03/22 07:35 36.6 C 85 24 238/146 H 08/03/22 06:22 36.4 C L 83 26 H 198/139 H 08/03/22 06:21 08/03/22 05:53 79 19 214/143 H 08/03/22 05:00 85 23 216/155 H 08/03/22 04:25 91 H 23 214/134 H 08/03/22 03:02 94 H 25 H 270/134 H 08/03/22 03:01 273/196 H 08/03/22 01:00 89 21 BP Pulse Ox Pulse Ox O2 Del Method O2 Del Method 08/03/22 12:51 173/97 H 89 L Room Air 08/03/22 11:47 213/138 H 93 Room Air 08/03/22 11:09 214/150 H 95 Room Air 08/03/22 10:22 180/107 H 08/03/22 08:00 Room Air 08/03/22 08:00 94 Room Air 08/03/22 09:19 08/03/22 07:35 219/143 H 94 Room Air 08/03/22 06:22 230/158 H 94 Room Air 08/03/22 06:21 94 Room Air 08/03/22 05:53 Room Air 08/03/22 05:00 92 Room Air 08/03/22 04:25 93 Room Air 08/03/22 03:02 91 Room Air 08/03/22 03:01 08/03/22 01:00 232/144 H 92 Room Air PG Care Time/CCT Total # of Minutes Spent Total Time Spent with Patient: Total time spent is greater than 50% in coordination of care (as documented) at patient's floor/unit and/or counseling patient: Coding Level of Care Code 48878 Inpt Consult Level 5 Diagnoses Intracerebral hemorrhage I61.9 Stroke I63.9 Hypertensive urgency I16.0 Congestive heart failure due to hypertension I11.0 Diabetes E11.9 Time Spent (min) 90 Comment add modifiers as able
--- NOTE | 2022-08-03 13:21 | Pharmacy Report ---
Pharmacy Glycemic Sign Off Nt - Date of Service August 03, 2022 - Assessment & Plan ASSESSMENT: * Pharmacy was consulted by Dr. Hugo on 08/03/22 for glycemic control and to write orders per [facility] inpatient glycemic control protocol. * Patient's BSGs have been 119 and 118 mg/dL this AM. * Did add Novolog coverage per sliding scale - parameters can be seen below * Do not expect patient will require any basal insulin based on A1c and fasting BSG. * Do not anticipate further changes in patient status that would quickly deteriorate glycemic control (i.e. patient to be NPO for upcoming procedure, steroids tapering, starting tube feedings, etc). * Please see recommendations for outpatient antidiabetic regimen below. PLAN FOR INPATIENT GLYCEMIC CONTROL: No changes needed to current regimen. * No basal insulin * Continue NovoLog per scale ACHS/Q6hrs while NPO * Goal range = 110 - 140 mg/dl * CF = 35 mg/dl/unit * CR = 1 unit for ever 12 g CHO consumed DISCHARGE RECOMMENDATIONS: * Believe patient will require oral medications upon discharge for T2DM management. * Consider metformin 500 mg ER once daily with dinner. Patient received contrast on 08/03/22 around midnight so this medication should not be started until at least 08/05/22. * Continue to titrate metformin dosing upwards as recommended. Dosage increases should be made in increments of 500 mg weekly, up to 2,000 mg/day PO, given in divided doses. Doses above 2000 mg/day may be better tolerated if divided and given 3 times per day with meals. Max: 2,550 mg/day PO, in divided doses. 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 * Consider addition of Jardiance 10 mg PO daily given component of HF. Recommend discussion with certified activities director regarding this medication. * Pharmacy is signing off of glycemic consult and will no longer be making adjustments to inpatient regimen. Please feel free to re-consult if needed. Thank you.
--- NOTE | 2022-08-03 13:40 | Gastrointestinal Consultation ---
Date of Consultation August 03, 2022 Assessment & Plan (1) Intracerebral hemorrhage: (2) Cirrhosis: (3) Lesion of liver: (4) Hypertensive urgency: (5) Congestive heart failure due to hypertension: Plan 46-year-old male who has been a nonuser of the medical system for many years, admitted with shortness of breath and abdominal distention, found to have hypertensive urgency, CHF, pulmonary hypertension, pericardial and pleural effusions, intracranial hemorrhage, and we are consulted for apparent cirrhosis on imaging with possible small ascites. He does have a history of some EtOH use but it has not been heavy or recent, he does have a tattoo. + fam hx cirrhosis. Acute hepatitis labs are pending. On exam, abdomen soft, nontender, mildly distended. This may represent cardiac cirrhosis, versus MAYER versus vs ETOH other (need to r/o common causes - viral, autoimmune, etc). In addition he has numerous hepatic lesions of unclear etiology. - Acute hep panel pending - I've added repeat d bili, and RENÉ/ASMA/TTG/A1AT/ferritin/iron to r/o uncommon causes of liver disease - Portable US ordered to eval amt of ascites to see whether paracentesis would be feasible at this time, would be helpful to obtain SAAG, cytology - MRI abd to eval hepatic lesions - Diuretic tx as indicated per cardiology/critical care teams - Low-NA diet - Avoid Tylenol, ETOH - Avoid hepatotoxins - Daily weights - At present appears compensated with no HE, GIB - After discharge will need outpt w/u with GI, outpt EGD to screen for varices, etc Thank you for allowing us to participate in the care of this patient. Please call with any acute changes, questions or concerns. Please see addendum below with additional recommendation from my supervising physician. Supervising Physician Co-Signing Physician Notes I performed a history and physical examination of the patient today, including specifically on physical exam - soft abdomen. I have discussed the patient's management with the advanced practitioner. Please refer to the nurse practitioner's note for the documented findings and plan of care. Admitted with CVA/ HTN, incidentally found with possible liver cirrhosis/ nodules on CT scan abdomen. This can be worked up electively as OP with labs and further imaging of the liver/ Liver biopsy. Recall GI if needed. History of Present Illness Reason for Consultation: cirrhosis, abn ct abd Requesting Physician: Dr. Pat Attending Physician: Lane Hugo MD History of Present Illness This a 46-year-old male with history of psoriasis, tobacco and alcohol use, who has not sought medical care in the past 30 years, who presented to the ER yesterday with shortness of breath, abdominal distention that been going on for a few weeks. Found to be severely hypertensive with hypertensive urgency, BP above 200 systolic, with congestive heart failure, pericardial effusion, pleural effusions, leg edema. On arrival labs notable for elevated A1c, elevated D-dimer, elevated total bilirubin, very minimally elevated direct bilirubin, normal transaminases and alk phos, INR 1.3, elevated troponin normal platelet, hemoglobin and WBC, unremarkable sodium, potassium, creatinine levels. On imaging was noted to have suggestion of cirrhosis with numerous enhance hepatic lesions and small ascites. Neuro imaging suggestive of intracranial hemorrhage associated with hypertensive urgency. He is currently in the ICU. Has been evaluated by cardiology, as well as neurology. Antihypertensives as well as diuretics have been initiated. Patient has been urinating a lot, feels his abdomen and legs have been less swollen as result and he feels much better than when he came in. Is less SOB. Acute viral hepatitis labs pending. Denies chest pain, nausea vomiting, dysphagia, heartburn, abdominal pain, hematochezia, melena, hematemesis, diarrhea, jaundice, icterus, dark urine or duarte stools, fevers or chills, recent illnesses. Bowels move regularly, soft, brown; last BM was yesterday. No prior history of liver disease, although as above, he has not sought medical care for many years. He did have a family member with cirrhosis, due to ETOH. No prior abdominal surgery Smokes just less than 1 pack/day of tobacco. History of EtOH use, more so when he was younger, now drinks maybe 6 beers maybe once a month has not drank anything recently. Uses Tylenol and ibuprofen very occasionally, none recently. No herbal medication use, no history of IV or intranasal drug use. Does have a tattoo on his left forearm. Allergies Allergy/AdvReac Type Severity Reaction Status Date / Time No Known Allergies Allergy Verified 08/02/22 21:51 Patient History Medical History Psoriasis Umbilical hernia Surgical History No pertinent past surgical history Family History (Updated 08/03/22 @ 13:01 by Dominick Green MD) Father , age 72 with cirrhosis Cirrhosis Mother , age 67 with heart disease and diabetes Heart disease Diabetes Social History (Updated 08/03/22 @ 13:02 by Dominick Green MD) Smoking Status: Current every day smoker Tobacco Type: Smokeless Tobacco (Dip or Chew) Cigarettes Per Day: 15; Do You Dip or Chew Tobacco: Yes; Tobacco Cessation Education Requested by Patient: No Hx Alcohol Use: Yes Alcohol type: beer Alcohol Intake Frequency Comment: 6 beers about once per month Hx Substance Use: Yes Last Used Substance: Days (ago) Preferred Language: Libyan Communication Ability: Effective Veneer Layer Required: No Beliefs That Will Affect Care: None Current Living Situation: Spouse Current Living Situation Comment: current occupational status: employed 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 Umbilical hernia present, reduces easily, without erythema or warmth. Possible mild ascites. BS x4 quad Skin: Erythematous rash on the trunk and extremities, consistent with patient's known psoriasis. Warm and dry Neurologic: No asterixis Psychiatric: A+Ox3, euthymic affect Results & Data ([facility]) Vital Signs (Past 12 Hours) Vital Signs Temp Pulse Pulse Pulse Resp BP BP 08/03/22 12:51 93 H 26 H 08/03/22 11:47 78 18 08/03/22 11:09 82 21 08/03/22 10:22 79 08/03/22 08:00 08/03/22 08:00 08/03/22 09:19 95 H 215/155 H 08/03/22 07:35 36.6 C 85 24 238/146 H 12/05/22 06:22 36.4 C L 83 26 H 198/139 H 08/03/22 06:21 08/03/22 05:53 79 19 214/143 H 08/03/22 05:00 85 23 216/155 H 08/03/22 04:25 91 H 23 214/134 H 08/03/22 03:02 94 H 25 H 270/134 H 08/03/22 03:01 273/196 H BP Pulse Ox Pulse Ox O2 Del Method O2 Del Method 08/03/22 12:51 173/97 H 89 L Room Air 08/03/22 11:47 213/138 H 93 Room Air 08/03/22 11:09 214/150 H 95 Room Air 08/03/22 10:22 180/107 H 08/03/22 08:00 Room Air 08/03/22 08:00 94 Room Air 08/03/22 09:19 08/03/22 07:35 219/143 H 94 Room Air 08/03/22 06:22 230/158 H 94 Room Air 08/03/22 06:21 94 Room Air 08/03/22 05:53 Room Air 08/03/22 05:00 92 Room Air 08/03/22 04:25 93 Room Air 08/03/22 03:02 91 Room Air 08/03/22 03:01 Laboratory Results 08/03/22 08/03/22 08/03/22 Range/Units 11:49 09:03 08:14 WBC (4.8-10.8) K/ul RBC (4.63-6.08) M/uL Hgb (14.0-18.0) g/dl Hct (40.1-51.0) % MCV (80.0-100.0) fL MCH (25.0-34.0) pg MCHC (32.0-36.0) g/dL RDW Std Deviation (36.4-46.3) fL RDW Coeff of Nain (11.5-14.5) % Plt Count (130-400) K/uL MPV (9.4-12.4) fL Immature Gran % (Auto) % Neut % (Auto) % Lymph % (Auto) % Saunders % (Auto) % Eos % (Auto) % Baso % (Auto) % Neut # (Auto) (1.4-6.5) K/uL Lymph # (Auto) (1.2-3.4) K/uL Saunders # (Auto) (0.24-0.82) K/uL Eos # (Auto) (0-0.50) K/uL Baso # (Auto) (0-0.2) K/uL Immature Gran # (Auto) (0.00-0.02) K/uL PT (9.0-12.0) Seconds INR (0.9-1.1) APTT (21.0-31.0) Seconds PTT Ratio D-Dimer (0-500) ug/L FEU Sodium (136-145) mmol/L Potassium (3.5-5.1) mmol/L Chloride (98-107) mmol/L Carbon Dioxide (21-32) mmol/L Anion Gap (3-11) BUN (6-23) mg/dl Creatinine (0.6-1.4) mg/dl Est Cr Clr Drug Dosing ml/min Est GFR ( Amer) ml/min Est GFR (Non-Af Amer) ml/min BUN/Creatinine Ratio (10-20) Glucose (70-99(Fasting)) mg/dl POC Glucose 118 H 119 H (70-99) mg/dl Estimat Average Glucose mg/dl Hemoglobin A1c (4.5-5.6) % Calcium (8.5-10.1) mg/dl Magnesium Total Bilirubin (0.2-1.0) mg/dl Direct Bilirubin (0-0.2) mg/dl AST (13-39) U/L ALT (7-52) U/L Alkaline Phosphatase (34-104) U/L Troponin I High Sens (0-20) pg/ml B-Natriuretic Peptide (0-100) pg/ml Total Protein (6.0-8.3) gm/dl Albumin (3.4-5.0) gm/dl Globulin (2.5-4.0) gm/dl Albumin/Globulin Ratio (0.9-2) Lipase (11-82) U/L TSH (0.300-4.500) uIu/ml Urine Color Urine Appearance (Clear) Urine pH (4.5-7.5) Ur Specific [place] (1.000-1.030) Urine Protein (Negative) Urine Glucose (UA) (Negative) Urine Ketones (Negative) Urine Blood (Negative) Urine Nitrite (Negative) Urine Bilirubin (Negative) Urine Urobilinogen (Negative) Ur Leukocyte Esterase (Negative) Urine WBC (Auto) (0-5) /hpf Urine RBC (Auto) (0-4) /hpf U Hyaline Cast (Auto) (0-5) /lpf U Epithel Cells (Auto) (0-5) /lpf Urine Bacteria (Auto) (Negative) Ur Renal Epithelial Cell Granular Casts (0) /lpf Nasal Screen MRSA (PCR) (Negative) Urine Opiates Screen (Neg) Ur Methadone, Qual (Neg) Urine Barbiturates (Neg) Ur Phencyclidine (PCP) (Neg) U Amphetamin/Meth Scrn (Neg) MDMA (Ecstasy) Screen (Neg) U Benzodiazepines Scrn (Neg) Ur Cocaine Metabolite (Neg) U Marijuana (THC) Screen (Neg) Ethyl Alcohol mg/dL (<10.0) mg/dl Hepatitis A IgM Ab Pending Hep Bs Antigen Pending Hep Bs Ag Confirmation Pending Hep B Core IgM Ab Pending Hepatitis C Ab (EIA) Pending Hep C Ab Signal/Cutoff Pending SARS-CoV-2, RNA, NAAT (NEGATIVE) First/Repeat Specimen Gestational Age Estimated Delivery Date Est Date Determined By Maternal Race Maternal Weight Maternal Diabetes Number of Fetuses Maternal Scrn Egg Donor Donor Age or AFP Triple Screen Prev Trisomy 21 Preg Maternal Serum AFP AFP MoM Maternal AFP Interp Family History NTD NTD Risk Assessment Maternal Scrn Comment 08/03/22 08/03/22 08/03/22 Range/Units 08:14 08:14 08:14 WBC 7.75 (4.8-10.8) K/ul RBC 5.51 (4.63-6.08) M/uL Hgb 16.3 (14.0-18.0) g/dl Hct 50.3 (40.1-51.0) % MCV 91.3 (80.0-100.0) fL MCH 29.6 (25.0-34.0) pg MCHC 32.4 (32.0-36.0) g/dL RDW Std Deviation 46.6 H (36.4-46.3) fL RDW Coeff of Nain 13.9 (11.5-14.5) % Plt Count 209 (130-400) K/uL MPV 12.9 H (9.4-12.4) fL Immature Gran % (Auto) 0.3 % Neut % (Auto) 72.3 % Lymph % (Auto) 16.4 % Saunders % (Auto) 9.3 % Eos % (Auto) 1.3 % Baso % (Auto) 0.4 % Neut # (Auto) 5.61 (1.4-6.5) K/uL Lymph # (Auto) 1.27 (1.2-3.4) K/uL Saunders # (Auto) 0.72 (0.24-0.82) K/uL Eos # (Auto) 0.10 (0-0.50) K/uL Baso # (Auto) 0.03 (0-0.2) K/uL Immature Gran # (Auto) 0.02 (0.00-0.02) K/uL PT (9.0-12.0) Seconds INR (0.9-1.1) APTT (21.0-31.0) Seconds PTT Ratio D-Dimer (0-500) ug/L FEU Sodium 139 (136-145) mmol/L Potassium 3.7 (3.5-5.1) mmol/L Chloride 99 (98-107) mmol/L Carbon Dioxide 33 H (21-32) mmol/L Anion Gap 7 (3-11) BUN 16 (6-23) mg/dl Creatinine 1.08 (0.6-1.4) mg/dl Est Cr Clr Drug Dosing 102.8 ml/min Est GFR ( Amer) 94.2 ml/min Est GFR (Non-Af Amer) 81.3 ml/min BUN/Creatinine Ratio 14.8 (10-20) Glucose 128 H (70-99(Fasting)) mg/dl POC Glucose (70-99) mg/dl Estimat Average Glucose mg/dl Hemoglobin A1c (4.5-5.6) % Calcium 8.4 L (8.5-10.1) mg/dl Magnesium Total Bilirubin 1.7 H (0.2-1.0) mg/dl Direct Bilirubin (0-0.2) mg/dl AST 18 (13-39) U/L ALT 15 (7-52) U/L Alkaline Phosphatase 74 (34-104) U/L Troponin I High Sens 40.0 H (0-20) pg/ml B-Natriuretic Peptide (0-100) pg/ml Total Protein 7.3 (6.0-8.3) gm/dl Albumin 3.2 L (3.4-5.0) gm/dl Globulin 4.1 H (2.5-4.0) gm/dl Albumin/Globulin Ratio 0.8 L (0.9-2) Lipase (11-82) U/L TSH (0.300-4.500) uIu/ml Urine Color Urine Appearance (Clear) Urine pH (4.5-7.5) Ur Specific [place] (1.000-1.030) Urine Protein (Negative) Urine Glucose (UA) (Negative) Urine Ketones (Negative) Urine Blood (Negative) Urine Nitrite (Negative) Urine Bilirubin (Negative) Urine Urobilinogen (Negative) Ur Leukocyte Esterase (Negative) Urine WBC (Auto) (0-5) /hpf Urine RBC (Auto) (0-4) /hpf U Hyaline Cast (Auto) (0-5) /lpf U Epithel Cells (Auto) (0-5) /lpf Urine Bacteria (Auto) (Negative) Ur Renal Epithelial Cell Granular Casts (0) /lpf Nasal Screen MRSA (PCR) (Negative) Urine Opiates Screen (Neg) Ur Methadone, Qual (Neg) Urine Barbiturates (Neg) Ur Phencyclidine (PCP) (Neg) U Amphetamin/Meth Scrn (Neg) MDMA (Ecstasy) Screen (Neg) U Benzodiazepines Scrn (Neg) Ur Cocaine Metabolite (Neg) U Marijuana (THC) Screen (Neg) Ethyl Alcohol mg/dL (<10.0) mg/dl Hepatitis A IgM Ab Hep Bs Antigen Hep Bs Ag Confirmation Hep B Core IgM Ab Hepatitis C Ab (EIA) Hep C Ab Signal/Cutoff SARS-CoV-2, RNA, NAAT (NEGATIVE) First/Repeat Specimen Pending Gestational Age Pending Estimated Delivery Date Pending Est Date Determined By Pending Maternal Race Pending Maternal Weight Pending Maternal Diabetes Pending Number of Fetuses Pending Maternal Scrn Egg Donor Pending Donor Age or Pending AFP Triple Screen Pending Prev Trisomy 21 Preg Pending Maternal Serum AFP Pending AFP MoM Pending Maternal AFP Interp Pending Family History NTD Pending NTD Risk Assessment Pending Maternal Scrn Comment Pending 08/03/22 08/03/22 08/03/22 Range/Units 07:25 06:15 05:32 WBC (4.8-10.8) K/ul RBC (4.63-6.08) M/uL Hgb (14.0-18.0) g/dl Hct (40.1-51.0) % MCV (80.0-100.0) fL MCH (25.0-34.0) pg MCHC (32.0-36.0) g/dL RDW Std Deviation (36.4-46.3) fL RDW Coeff of Nain (11.5-14.5) % Plt Count (130-400) K/uL MPV (9.4-12.4) fL Immature Gran % (Auto) % Neut % (Auto) % Lymph % (Auto) % Saunders % (Auto) % Eos % (Auto) % Baso % (Auto) % Neut # (Auto) (1.4-6.5) K/uL Lymph # (Auto) (1.2-3.4) K/uL Saunders # (Auto) (0.24-0.82) K/uL Eos # (Auto) (0-0.50) K/uL Baso # (Auto) (0-0.2) K/uL Immature Gran # (Auto) (0.00-0.02) K/uL PT (9.0-12.0) Seconds INR (0.9-1.1) APTT (21.0-31.0) Seconds PTT Ratio D-Dimer (0-500) ug/L FEU Sodium (136-145) mmol/L Potassium (3.5-5.1) mmol/L Chloride (98-107) mmol/L Carbon Dioxide (21-32) mmol/L Anion Gap (3-11) BUN (6-23) mg/dl Creatinine (0.6-1.4) mg/dl Est Cr Clr Drug Dosing ml/min Est GFR ( Amer) ml/min Est GFR (Non-Af Amer) ml/min BUN/Creatinine Ratio (10-20) Glucose (70-99(Fasting)) mg/dl POC Glucose (70-99) mg/dl Estimat Average Glucose mg/dl Hemoglobin A1c (4.5-5.6) % Calcium (8.5-10.1) mg/dl Magnesium Total Bilirubin (0.2-1.0) mg/dl Direct Bilirubin (0-0.2) mg/dl AST (13-39) U/L ALT (7-52) U/L Alkaline Phosphatase (34-104) U/L Troponin I High Sens (0-20) pg/ml B-Natriuretic Peptide (0-100) pg/ml Total Protein (6.0-8.3) gm/dl Albumin (3.4-5.0) gm/dl Globulin (2.5-4.0) gm/dl Albumin/Globulin Ratio (0.9-2) Lipase (11-82) U/L TSH (0.300-4.500) uIu/ml Urine Color Urine Appearance (Clear) Urine pH (4.5-7.5) Ur Specific [place] (1.000-1.030) Urine Protein (Negative) Urine Glucose (UA) (Negative) Urine Ketones (Negative) Urine Blood (Negative) Urine Nitrite (Negative) Urine Bilirubin (Negative) Urine Urobilinogen (Negative) Ur Leukocyte Esterase (Negative) Urine WBC (Auto) (0-5) /hpf Urine RBC (Auto) (0-4) /hpf U Hyaline Cast (Auto) (0-5) /lpf U Epithel Cells (Auto) (0-5) /lpf Urine Bacteria (Auto) (Negative) Ur Renal Epithelial Cell Granular Casts (0) /lpf Nasal Screen MRSA (PCR) Negative (Negative) Urine Opiates Screen Neg (Neg) Ur Methadone, Qual Neg (Neg) Urine Barbiturates Neg (Neg) Ur Phencyclidine (PCP) Neg (Neg) U Amphetamin/Meth Scrn Neg (Neg) MDMA (Ecstasy) Screen Neg (Neg) U Benzodiazepines Scrn Neg (Neg) Ur Cocaine Metabolite Neg (Neg) U Marijuana (THC) Screen Neg (Neg) Ethyl Alcohol mg/dL < 10.0 (<10.0) mg/dl Hepatitis A IgM Ab Hep Bs Antigen Hep Bs Ag Confirmation Hep B Core IgM Ab Hepatitis C Ab (EIA) Hep C Ab Signal/Cutoff SARS-CoV-2, RNA, NAAT (NEGATIVE) First/Repeat Specimen Gestational Age Estimated Delivery Date Est Date Determined By Maternal Race Maternal Weight Maternal Diabetes Number of Fetuses Maternal Scrn Egg Donor Donor Age or AFP Triple Screen Prev Trisomy 21 Preg Maternal Serum AFP AFP MoM Maternal AFP Interp Family History NTD NTD Risk Assessment Maternal Scrn Comment 08/03/22 08/03/22 08/03/22 Range/Units 05:32 03:10 00:21 WBC (4.8-10.8) K/ul RBC (4.63-6.08) M/uL Hgb (14.0-18.0) g/dl Hct (40.1-51.0) % MCV (80.0-100.0) fL MCH (25.0-34.0) pg MCHC (32.0-36.0) g/dL RDW Std Deviation (36.4-46.3) fL RDW Coeff of Nain (11.5-14.5) % Plt Count (130-400) K/uL MPV (9.4-12.4) fL Immature Gran % (Auto) % Neut % (Auto) % Lymph % (Auto) % Saunders % (Auto) % Eos % (Auto) % Baso % (Auto) % Neut # (Auto) (1.4-6.5) K/uL Lymph # (Auto) (1.2-3.4) K/uL Saunders # (Auto) (0.24-0.82) K/uL Eos # (Auto) (0-0.50) K/uL Baso # (Auto) (0-0.2) K/uL Immature Gran # (Auto) (0.00-0.02) K/uL PT (9.0-12.0) Seconds INR (0.9-1.1) APTT (21.0-31.0) Seconds PTT Ratio D-Dimer (0-500) ug/L FEU Sodium (136-145) mmol/L Potassium (3.5-5.1) mmol/L Chloride (98-107) mmol/L Carbon Dioxide (21-32) mmol/L Anion Gap (3-11) BUN (6-23) mg/dl Creatinine (0.6-1.4) mg/dl Est Cr Clr Drug Dosing ml/min Est GFR ( Amer) ml/min Est GFR (Non-Af Amer) ml/min BUN/Creatinine Ratio (10-20) Glucose (70-99(Fasting)) mg/dl POC Glucose (70-99) mg/dl Estimat Average Glucose mg/dl Hemoglobin A1c (4.5-5.6) % Calcium (8.5-10.1) mg/dl Magnesium Total Bilirubin (0.2-1.0) mg/dl Direct Bilirubin (0-0.2) mg/dl AST (13-39) U/L ALT (7-52) U/L Alkaline Phosphatase (34-104) U/L Troponin I High Sens 38.8 H 42.1 H (0-20) pg/ml B-Natriuretic Peptide (0-100) pg/ml Total Protein (6.0-8.3) gm/dl Albumin (3.4-5.0) gm/dl Globulin (2.5-4.0) gm/dl Albumin/Globulin Ratio (0.9-2) Lipase (11-82) U/L TSH (0.300-4.500) uIu/ml Urine Color Urine Appearance (Clear) Urine pH (4.5-7.5) Ur Specific [place] (1.000-1.030) Urine Protein (Negative) Urine Glucose (UA) (Negative) Urine Ketones (Negative) Urine Blood (Negative) Urine Nitrite (Negative) Urine Bilirubin (Negative) Urine Urobilinogen (Negative) Ur Leukocyte Esterase (Negative) Urine WBC (Auto) (0-5) /hpf Urine RBC (Auto) (0-4) /hpf U Hyaline Cast (Auto) (0-5) /lpf U Epithel Cells (Auto) (0-5) /lpf Urine Bacteria (Auto) (Negative) Ur Renal Epithelial Cell Granular Casts (0) /lpf Nasal Screen MRSA (PCR) (Negative) Urine Opiates Screen (Neg) Ur Methadone, Qual (Neg) Urine Barbiturates (Neg) Ur Phencyclidine (PCP) (Neg) U Amphetamin/Meth Scrn (Neg) MDMA (Ecstasy) Screen (Neg) U Benzodiazepines Scrn (Neg) Ur Cocaine Metabolite (Neg) U Marijuana (THC) Screen (Neg) Ethyl Alcohol mg/dL (<10.0) mg/dl Hepatitis A IgM Ab Hep Bs Antigen Hep Bs Ag Confirmation Hep B Core IgM Ab Hepatitis C Ab (EIA) Hep C Ab Signal/Cutoff SARS-CoV-2, RNA, NAAT NEGATIVE (NEGATIVE) First/Repeat Specimen Gestational Age Estimated Delivery Date Est Date Determined By Maternal Race Maternal Weight Maternal Diabetes Number of Fetuses Maternal Scrn Egg Donor Donor Age or AFP Triple Screen Prev Trisomy 21 Preg Maternal Serum AFP AFP MoM Maternal AFP Interp Family History NTD NTD Risk Assessment Maternal Scrn Comment 08/03/22 08/02/22 08/02/22 Range/Units 00:21 22:31 22:31 WBC (4.8-10.8) K/ul RBC (4.63-6.08) M/uL Hgb (14.0-18.0) g/dl Hct (40.1-51.0) % MCV (80.0-100.0) fL MCH (25.0-34.0) pg MCHC (32.0-36.0) g/dL RDW Std Deviation (36.4-46.3) fL RDW Coeff of Nain (11.5-14.5) % Plt Count (130-400) K/uL MPV (9.4-12.4) fL Immature Gran % (Auto) % Neut % (Auto) % Lymph % (Auto) % Sa[place] % (Auto) % Eos % (Auto) % Baso % (Auto) % Neut # (Auto) (1.4-6.5) K/uL Lymph # (Auto) (1.2-3.4) K/uL Saunders # (Auto) (0.24-0.82) K/uL Eos # (Auto) (0-0.50) K/uL Baso # (Auto) (0-0.2) K/uL Immature Gran # (Auto) (0.00-0.02) K/uL PT 13.3 H (9.0-12.0) Seconds INR 1.3 H (0.9-1.1) APTT 30.8 (21.0-31.0) Seconds PTT Ratio 1.1 D-Dimer (0-500) ug/L FEU Sodium (136-145) mmol/L Potassium (3.5-5.1) mmol/L Chloride (98-107) mmol/L Carbon Dioxide (21-32) mmol/L Anion Gap (3-11) BUN (6-23) mg/dl Creatinine (0.6-1.4) mg/dl Est Cr Clr Drug Dosing ml/min Est GFR ( Amer) ml/min Est GFR (Non-Af Amer) ml/min BUN/Creatinine Ratio (10-20) Glucose (70-99(Fasting)) mg/dl POC Glucose (70-99) mg/dl Estimat Average Glucose mg/dl Hemoglobin A1c (4.5-5.6) % Calcium (8.5-10.1) mg/dl Magnesium Total Bilirubin (0.2-1.0) mg/dl Direct Bilirubin 0.4 H (0-0.2) mg/dl AST (13-39) U/L ALT (7-52) U/L Alkaline Phosphatase (34-104) U/L Troponin I High Sens 36.6 H (0-20) pg/ml B-Natriuretic Peptide 994 H (0-100) pg/ml Total Protein (6.0-8.3) gm/dl Albumin (3.4-5.0) gm/dl Globulin (2.5-4.0) gm/dl Albumin/Globulin Ratio (0.9-2) Lipase (11-82) U/L TSH (0.300-4.500) uIu/ml Urine Color Urine Appearance (Clear) Urine pH (4.5-7.5) Ur Specific [place] (1.000-1.030) Urine Protein (Negative) Urine Glucose (UA) (Negative) Urine Ketones (Negative) Urine Blood (Negative) Urine Nitrite (Negative) Urine Bilirubin (Negative) Urine Urobilinogen (Negative) Ur Leukocyte Esterase (Negative) Urine WBC (Auto) (0-5) /hpf Urine RBC (Auto) (0-4) /hpf U Hyaline Cast (Auto) (0-5) /lpf U Epithel Cells (Auto) (0-5) /lpf Urine Bacteria (Auto) (Negative) Ur Renal Epithelial Cell Granular Casts (0) /lpf Nasal Screen MRSA (PCR) (Negative) Urine Opiates Screen (Neg) Ur Methadone, Qual (Neg) Urine Barbiturates (Neg) Ur Phencyclidine (PCP) (Neg) U Amphetamin/Meth Scrn (Neg) MDMA (Ecstasy) Screen (Neg) U Benzodiazepines Scrn (Neg) Ur Cocaine Metabolite (Neg) U Marijuana (THC) Screen (Neg) Ethyl Alcohol mg/dL (<10.0) mg/dl Hepatitis A IgM Ab Hep Bs Antigen Hep Bs Ag Confirmation Hep B Core IgM Ab Hepatitis C Ab (EIA) Hep C Ab Signal/Cutoff SARS-CoV-2, RNA, NAAT (NEGATIVE) First/Repeat Specimen Gestational Age Estimated Delivery Date Est Date Determined By Maternal Race Maternal Weight Maternal Diabetes Number of Fetuses Maternal Scrn Egg Donor Donor Age or AFP Triple Screen Prev Trisomy 21 Preg Maternal Serum AFP AFP MoM Maternal AFP Interp Family History NTD NTD Risk Assessment Maternal Scrn Comment 08/02/22 08/02/22 08/02/22 Range/Units 22:31 19:24 19:18 WBC (4.8-10.8) K/ul RBC (4.63-6.08) M/uL Hgb (14.0-18.0) g/dl Hct (40.1-51.0) % MCV (80.0-100.0) fL MCH (25.0-34.0) pg MCHC (32.0-36.0) g/dL RDW Std Deviation (36.4-46.3) fL RDW Coeff of Nain (11.5-14.5) % Plt Count (130-400) K/uL MPV (9.4-12.4) fL Immature Gran % (Auto) % Neut % (Auto) % Lymph % (Auto) % [place] % (Auto) % Eos % (Auto) % Baso % (Auto) % Neut # (Auto) (1.4-6.5) K/uL Lymph # (Auto) (1.2-3.4) K/uL Saunders # (Auto) (0.24-0.82) K/uL Eos # (Auto) (0-0.50) K/uL Baso # (Auto) (0-0.2) K/uL Immature Gran # (Auto) (0.00-0.02) K/uL PT (9.0-12.0) Seconds INR (0.9-1.1) APTT (21.0-31.0) Seconds PTT Ratio D-Dimer 1150 H* (0-500) ug/L FEU Sodium (136-145) mmol/L Potassium (3.5-5.1) mmol/L Chloride (98-107) mmol/L Carbon Dioxide (21-32) mmol/L Anion Gap (3-11) BUN (6-23) mg/dl Creatinine (0.6-1.4) mg/dl Est Cr Clr Drug Dosing ml/min Est GFR ( Amer) ml/min Est GFR (Non-Af Amer) ml/min BUN/Creatinine Ratio (10-20) Glucose (70-99(Fasting)) mg/dl POC Glucose (70-99) mg/dl Estimat Average Glucose 166 mg/dl Hemoglobin A1c 7.4 H (4.5-5.6) % Calcium (8.5-10.1) mg/dl Magnesium Total Bilirubin (0.2-1.0) mg/dl Direct Bilirubin (0-0.2) mg/dl AST (13-39) U/L ALT (7-52) U/L Alkaline Phosphatase (34-104) U/L Troponin I High Sens (0-20) pg/ml B-Natriuretic Peptide (0-100) pg/ml Total Protein (6.0-8.3) gm/dl Albumin (3.4-5.0) gm/dl Globulin (2.5-4.0) gm/dl Albumin/Globulin Ratio (0.9-2) Lipase (11-82) U/L TSH (0.300-4.500) uIu/ml Urine Color Dark Yellow Urine Appearance Clear (Clear) Urine pH 5.5 (4.5-7.5) Ur Specific [place] 1.028 (1.000-1.030) Urine Protein 4+ H (Negative) Urine Glucose (UA) Negative (Negative) Urine Ketones Trace H (Negative) Urine Blood 2+ H (Negative) Urine Nitrite Negative (Negative) Urine Bilirubin 1+ H (Negative) Urine Urobilinogen Negative (Negative) Ur Leukocyte Esterase Negative (Negative) Urine WBC (Auto) 1-5 (0-5) /hpf Urine RBC (Auto) 5-10 H (0-4) /hpf U Hyaline Cast (Auto) >30 H (0-5) /lpf U Epithel Cells (Auto) 5-10 H (0-5) /lpf Urine Bacteria (Auto) Negative (Negative) Ur Renal Epithelial Cell Not Reportable Granular Casts 1-5 H (0) /lpf Nasal Screen MRSA (PCR) (Negative) Urine Opiates Screen (Neg) Ur Methadone, Qual (Neg) Urine Barbiturates (Neg) Ur Phencyclidine (PCP) (Neg) U Amphetamin/Meth Scrn (Neg) MDMA (Ecstasy) Screen (Neg) U Benzodiazepines Scrn (Neg) Ur Cocaine Metabolite (Neg) U Marijuana (THC) Screen (Neg) Ethyl Alcohol mg/dL (<10.0) mg/dl Hepatitis A IgM Ab Hep Bs Antigen Hep Bs Ag Confirmation Hep B Core IgM Ab Hepatitis C Ab (EIA) Hep C Ab Signal/Cutoff SARS-CoV-2, RNA, NAAT (NEGATIVE) First/Repeat Specimen Gestational Age Estimated Delivery Date Est Date Determined By Maternal Race Maternal Weight Maternal Diabetes Number of Fetuses Maternal Scrn Egg Donor Donor Age or AFP Triple Screen Prev Trisomy 21 Preg Maternal Serum AFP AFP MoM Maternal AFP Interp Family History NTD NTD Risk Assessment Maternal Scrn Comment 08/02/22 08/02/22 08/02/22 Range/Units 19:18 19:18 19:18 WBC 8.70 (4.8-10.8) K/ul RBC 5.67 (4.63-6.08) M/uL Hgb 16.8 (14.0-18.0) g/dl Hct 51.5 H (40.1-51.0) % MCV 90.8 (80.0-100.0) fL MCH 29.6 (25.0-34.0) pg MCHC 32.6 (32.0-36.0) g/dL RDW Std Deviation 46.5 H (36.4-46.3) fL RDW Coeff of Nain 13.9 (11.5-14.5) % Plt Count 224 (130-400) K/uL MPV 13.2 H (9.4-12.4) fL Immature Gran % (Auto) 0.2 % Neut % (Auto) 71.7 % Lymph % (Auto) 17.2 % Saunders % (Auto) 8.3 % Eos % (Auto) 2.0 % Baso % (Auto) 0.6 % Neut # (Auto) 6.24 (1.4-6.5) K/uL Lymph # (Auto) 1.50 (1.2-3.4) K/uL Saunders # (Auto) 0.72 (0.24-0.82) K/uL Eos # (Auto) 0.17 (0-0.50) K/uL Baso # (Auto) 0.05 (0-0.2) K/uL Immature Gran # (Auto) 0.02 (0.00-0.02) K/uL PT (9.0-12.0) Seconds INR (0.9-1.1) APTT (21.0-31.0) Seconds PTT Ratio D-Dimer (0-500) ug/L FEU Sodium 137 (136-145) mmol/L Potassium 3.9 (3.5-5.1) mmol/L Chloride 98 (98-107) mmol/L Carbon Dioxide 32 (21-32) mmol/L Anion Gap 7 (3-11) BUN 18 (6-23) mg/dl Creatinine 1.06 (0.6-1.4) mg/dl Est Cr Clr Drug Dosing 106.1 ml/min Est GFR ( Amer) 96.4 ml/min Est GFR (Non-Af Amer) 83.2 ml/min BUN/Creatinine Ratio 17.0 (10-20) Glucose 173 H (70-99(Fasting)) mg/dl POC Glucose (70-99) mg/dl Estimat Average Glucose mg/dl Hemoglobin A1c (4.5-5.6) % Calcium 8.5 (8.5-10.1) mg/dl Magnesium Total Bilirubin 1.4 H (0.2-1.0) mg/dl Direct Bilirubin (0-0.2) mg/dl AST 20 (13-39) U/L ALT 16 (7-52) U/L Alkaline Phosphatase 80 (34-104) U/L Troponin I High Sens (0-20) pg/ml B-Natriuretic Peptide (0-100) pg/ml Total Protein 7.3 (6.0-8.3) gm/dl Albumin 3.2 L (3.4-5.0) gm/dl Globulin 4.1 H (2.5-4.0) gm/dl Albumin/Globulin Ratio 0.8 L (0.9-2) Lipase 22 (11-82) U/L TSH 2.380 (0.300-4.500) uIu/ml Urine Color Urine Appearance (Clear) Urine pH (4.5-7.5) Ur Specific [place] (1.000-1.030) Urine Protein (Negative) Urine Glucose (UA) (Negative) Urine Ketones (Negative) Urine Blood (Negative) Urine Nitrite (Negative) Urine Bilirubin (Negative) Urine Urobilinogen (Negative) Ur Leukocyte Esterase (Negative) Urine WBC (Auto) (0-5) /hpf Urine RBC (Auto) (0-4) /hpf U Hyaline Cast (Auto) (0-5) /lpf U Epithel Cells (Auto) (0-5) /lpf Urine Bacteria (Auto) (Negative) Ur Renal Epithelial Cell Granular Casts (0) /lpf Nasal Screen MRSA (PCR) (Negative) Urine Opiates Screen (Neg) Ur Methadone, Qual (Neg) Urine Barbiturates (Neg) Ur Phencyclidine (PCP) (Neg) U Amphetamin/Meth Scrn (Neg) MDMA (Ecstasy) Screen (Neg) U Benzodiazepines Scrn (Neg) Ur Cocaine Metabolite (Neg) U Marijuana (THC) Screen (Neg) Ethyl Alcohol mg/dL (<10.0) mg/dl Hepatitis A IgM Ab Hep Bs Antigen Hep Bs Ag Confirmation Hep B Core IgM Ab Hepatitis C Ab (EIA) Hep C Ab Signal/Cutoff SARS-CoV-2, RNA, NAAT (NEGATIVE) First/Repeat Specimen Gestational Age Estimated Delivery Date Est Date Determined By Maternal Race Maternal Weight Maternal Diabetes Number of Fetuses Maternal Scrn Egg Donor Donor Age or AFP Triple Screen Prev Trisomy 21 Preg Maternal Serum AFP AFP MoM Maternal AFP Interp Family History NTD NTD Risk Assessment Maternal Scrn Comment 08/02/22 Range/Units 00:21 WBC (4.8-10.8) K/ul RBC (4.63-6.08) M/uL Hgb (14.0-18.0) g/dl Hct (40.1-51.0) % MCV (80.0-100.0) fL MCH (25.0-34.0) pg MCHC (32.0-36.0) g/dL RDW Std Deviation (36.4-46.3) fL RDW Coeff of Nain (11.5-14.5) % Plt Count (130-400) K/uL MPV (9.4-12.4) fL Immature Gran % (Auto) % Neut % (Auto) % Lymph % (Auto) % Saunders % (Auto) % Eos % (Auto) % Baso % (Auto) % Neut # (Auto) (1.4-6.5) K/uL Lymph # (Auto) (1.2-3.4) K/uL [place] # (Auto) (0.24-0.82) K/uL Eos # (Auto) (0-0.50) K/uL Baso # (Auto) (0-0.2) K/uL Immature Gran # (Auto) (0.00-0.02) K/uL PT (9.0-12.0) Seconds INR (0.9-1.1) APTT (21.0-31.0) Seconds PTT Ratio D-Dimer (0-500) ug/L FEU Sodium (136-145) mmol/L Potassium (3.5-5.1) mmol/L Chloride (98-107) mmol/L Carbon Dioxide (21-32) mmol/L Anion Gap (3-11) BUN (6-23) mg/dl Creatinine (0.6-1.4) mg/dl Est Cr Clr Drug Dosing ml/min Est GFR ( Amer) ml/min Est GFR (Non-Af Amer) ml/min BUN/Creatinine Ratio (10-20) Glucose (70-99(Fasting)) mg/dl POC Glucose (70-99) mg/dl Estimat Average Glucose mg/dl Hemoglobin A1c (4.5-5.6) % Calcium (8.5-10.1) mg/dl Magnesium Cancelled Total Bilirubin (0.2-1.0) mg/dl Direct Bilirubin (0-0.2) mg/dl AST (13-39) U/L ALT (7-52) U/L Alkaline Phosphatase (34-104) U/L Troponin I High Sens (0-20) pg/ml B-Natriuretic Peptide (0-100) pg/ml Total Protein (6.0-8.3) gm/dl Albumin (3.4-5.0) gm/dl Globulin (2.5-4.0) gm/dl Albumin/Globulin Ratio (0.9-2) Lipase (11-82) U/L TSH (0.300-4.500) uIu/ml Urine Color Urine Appearance (Clear) Urine pH (4.5-7.5) Ur Specific [place] (1.000-1.030) Urine Protein (Negative) Urine Glucose (UA) (Negative) Urine Ketones (Negative) Urine Blood (Negative) Urine Nitrite (Negative) Urine Bilirubin (Negative) Urine Urobilinogen (Negative) Ur Leukocyte Esterase (Negative) Urine WBC (Auto) (0-5) /hpf Urine RBC (Auto) (0-4) /hpf U Hyaline Cast (Auto) (0-5) /lpf U Epithel Cells (Auto) (0-5) /lpf Urine Bacteria (Auto) (Negative) Ur Renal Epithelial Cell Granular Casts (0) /lpf Nasal Screen MRSA (PCR) (Negative) Urine Opiates Screen (Neg) Ur Methadone, Qual (Neg) Urine Barbiturates (Neg) Ur Phencyclidine (PCP) (Neg) U Amphetamin/Meth Scrn (Neg) MDMA (Ecstasy) Screen (Neg) U Benzodiazepines Scrn (Neg) Ur Cocaine Metabolite (Neg) U Marijuana (THC) Screen (Neg) Ethyl Alcohol mg/dL (<10.0) mg/dl Hepatitis A IgM Ab Hep Bs Antigen Hep Bs Ag Confirmation Hep B Core IgM Ab Hepatitis C Ab (EIA) Hep C Ab Signal/Cutoff SARS-CoV-2, RNA, NAAT (NEGATIVE) First/Repeat Specimen Gestational Age Estimated Delivery Date Est Date Determined By Maternal Race Maternal Weight Maternal Diabetes Number of Fetuses Maternal Scrn Egg Donor Donor Age or AFP Triple Screen Prev Trisomy 21 Preg Maternal Serum AFP AFP MoM Maternal AFP Interp Family History NTD NTD Risk Assessment Maternal Scrn Comment Diagnostic Findings Head CT: CLINICAL HISTORY: hypertensive crisis Technique: Contiguous axial CT images of the head were acquired from the base of the skull to the vertex without intravenous contrast administration. Images were viewed in brain, subdural and bone windows. Automated dose lowering techniques and/or adjustment according to patient size were utilized for this exam. Comparison: None available at the time of this dictation. Findings: Radiodensities are seen in the right cerebellum and ludwig. Imaged portions of the paranasal sinuses and mastoid air cells are clear. The orbits appear normal. There are no acute fractures of the calvaria or scalp swelling. Impression: Hyperdensities in the right cerebellum and ludwig are concerning for intracranial hemorrhage in this patient with a hypertensive crisis. CTAP: CT abd pelvis IV con only CLINICAL HISTORY: abdominal pain, umbilical hernia TECHNIQUE: Helical axial images of the abdomen and pelvis were obtained and displayed. Automated dose lowering techniques and/or adjustment according to patient size were utilized for this exam. This exam was performed with intravenous contrast. COMPARISON: None available at the time of this dictation. FINDINGS: Lower chest: Mild right and trace left pleural effusions noted. There is associated atelectasis. Liver: Nodular contour of the liver is seen compatible with cirrhosis. Numerous small enhancing lesions are seen. Gallbladder and biliary tree: Pericholecystic fluid is seen without emy wall thickening. No intra- or extrahepatic biliary ductal dilation. Pancreas: Unremarkable, no focal lesions. Spleen: Unremarkable. Adrenals: Unremarkable. Kidneys and ureters: Exophytic cyst measuring 12 mm is seen in the left kidney. Bladder: Unremarkable. Reproductive organs: Unremarkable. Bowel: Unremarkable appearance of the bowel. The appendix is normal. Lymph nodes Retroperitoneal: Unremarkable. Pelvic: Prominent subcentimeter inguinal nodes are noted. Mesenteric: Unremarkable. Peritoneum: Trace abdominal fluid is seen. Vessels: Atherosclerotic calcifications are seen. A few varices are noted in the body wall. Abdominal wall: An umbilical hernia is seen containing fat and fluid. Body wall edema is noted. Bones: Degenerative changes in the visualized spine. IMPRESSION: 1. Cirrhotic contour of the liver with numerous enhancing small nodules. If not previously evaluated, MRI liver mass protocol is recommended. 2. Umbilical hernia containing fat and fluid. 3. Bilateral pleural effusions and small volume ascites. (1) Cirrhosis Ascites presence: with ascites Hepatic cirrhosis type: unspecified hepatic cirrhosis Qualified Code(s): K74.60 - Unspecified cirrhosis of liver; R18.8 - Other ascites
[2022-08-03 14:31] LABS: Bilirubin Direct 0.4 mg/dl (0-0.2)
[2022-08-03 14:42] LABS: Ferritin 86.6 ng/ml (8-388)
--- NOTE | 2022-08-03 14:44 | Billing Data ---
Date of Service August 03, 2022 CRITICAL CARE TIME - I have personally spent 41 minutes of critical care time in the direct management of this patient. This is a life/limb threatening event. This includes time spent evaluating patient, direct bedside care, chart review, placing orders, interpretation of diagnostic studies, discussion with consultants, patient, and family members, as well as other required patient management activities. This time is exclusive of all separately billable procedures, and teaching time and separate from and in addition to any other critical care service time. Coding Level of Care Code Critical Care 1st 30-74 mins Time Spent (min) 41
--- NOTE | 2022-08-03 14:45 | Ultrasound Report ---
US abdomen limited HISTORY: 46 years-old Male ascites (enough for tap?), hepatic lesions abdominal ascites with numerou s hepatic lesions COMPARISON: CT abdomen and pelvis of same day TECHNIQUE: Multiple real-time sonographic images of the abdomen assessing for ascitic fluid were obta ined assessing grayscale appearance FINDINGS: Heterogeneous appearance of the liver. The previously noted hepatic lesions are not identified by ult rasound. There is only a small amount of abdominal ascites noted, predominantly within a perihepatic distribution. IMPRESSION: Small volume of abdominal ascites, predominantly within a perihepatic distribution. ACT 112: Negative or not required by law. The above report was generated using voice recognition software. It may contain grammatical, syntax o r spelling errors. Electronically signed by: Jj Wiley M.D. 08/03/2022 2:44 PM
--- NOTE | 2022-08-03 15:14 | Hospitalist Progress Note ---
Date of Service August 03, 2022 Assessment & Plan (1) Congestive heart failure due to hypertension: Plan: Hypertensive Urgency Likely has longstanding uncontrolled HTN On metoprolol, lisinopril, Hydralazine Also started on nicardipine drip Appreciate cctv technician help Needs further adjustment of medications to help control BP Intracranial hemorrhage Hemorrhagic stroke Secondary to above -CT head:Hyperdensities in the right cerebellum and ludwig are concerning for intracranial hemorrhage in this patient with a hypertensive crisis. -Patient refuses to get MRI adamantly despite explaining the risks and complications -Also offered to be transferred to tertiary care facility given need for neurosurgical evaluation, but patient refuses the same and prefers no invasive procedures. -Avoid anticoagulants Appreciate neurology input Neuro checks We will repeat CT head tomorrow Nonischemic cardiomyopathy Pulmonary hypertension Volume overload--multifactorial: Cirrhosis, hypertensive urgency, nonischemic cardiomyopathy --ECHO: Severe concentric LVH, mildly reduced LV systolic function with mild global hypokinesis, EF 45 to 50%, grade 2 diastolic dysfunction, left atrium is mildly dilated, right atrium is moderately dilated, aortic valve sclerosis moderate, without significant aortic valvular stenosis, mitral valve leaflets appear thickened but not open, mild mitral annular calcification, mild mitral regurgitation, mild tricuspid regurgitation, significant pulmonary hypertension with PA systolic pressure of 61 mmHg assuming a right atrial pressure of 8 mm history. --CT ABD showed Atherosclerotic calcifications -- Continue metoprolol, lisinopril Check lipid panel --Appreciate Cardiology Input On IV Lasix 40mg BID Monitor I's and O's, daily weight, volume status -Will likely need cardiac MRI eventually -Check Lipid panel DM II New Diagnosis HbA1c 7.4 Not on any meds ISS, basal Insulin, Accu checks, Diabetic diet Pharmacy Glycemic control consult elementary educator consulted as well Elevated D-dimer -CTA: No pulmonary emboli identified. -Venous Doppler:No evidence of deep venous thrombus within the bilateral lower extremities. Minimal superficial thrombus within the bilateral greater saphenous veins. This finding will be called/faxed to ordering provider at time of dictation. -- May need repeat venous Doppler to monitor for progression Cirrhosis with Ascites Hepatic steatosis Past alcohol abuse Acute hepatitis panel, other serological testing pending --CT ABD:Cirrhotic contour of the liver with numerous enhancing small nodules. If not previously evaluated, MRI liver mass protocol is recommended. Umbilical hernia containing fat and fluid. Bilateral pleural effusions and small volume ascites. --ABD USD:Small volume of abdominal ascites, predominantly within a perihepatic distribution. Low-sodium diet Continue diuretics as above Appreciate GI input Will need outpatient EGD to rule out varices Ongoing tobacco abuse Psoriasis- as per records Credit Historian to quit smoking Morbid Obesity BMI: 42 Credit Historian Lifestyle changes DVT Px: SCDs Re: Intracranial hemorrhage Code Status Full Code Admission and Anticipated Discharge Date Admission Date: August 03, 2022 Subjective Patient is seen and examined at bedside States feeling much better when compared to the time of admission Denies any chest pain, shortness of breath, dizziness, abdominal pain Feels abdominal distention is better Still has significant lower extremity edema Discussed with cctv technician, neurologist today Also discussed with patient's family at bedside Review of Systems Review of Systems: All systems reviewed & are unremarkable except as noted in Subjective Physical Exam Physical Exam: Physical Exam: Vitals signs as noted above General Appearance:Morbidly Obese, no apparent distress Head: normocephalic, Atraumatic Eyes: normal inspection, EOMI Neck: supple, Trachea midline Respiratory/Chest: Decreased breath sounds, CTA, No accessory muscle use Cardiovascular: S1, S2, No murmur Abdomen/GI:Soft, Non tender, mildly distended, Bowel sounds present Extremities/Musculoskeletal:normal inspection, 2+ B/L LE edema Neurologic/Psych:AAOX3, grossly no focal neurological deficits Skin: normal color, warm Results & Data Results & Data ([facility]) Vital Signs (Past 12 Hours) Vital Signs Temp Pulse Pulse Pulse Resp BP BP 08/03/22 14:16 145/86 H 08/03/22 14:16 83 22 08/03/22 14:15 82 26 H 08/03/22 14:01 86 21 08/03/22 14:01 164/97 H 08/03/22 14:00 89 20 08/03/22 13:45 82 27 H 08/03/22 13:45 166/91 H 08/03/22 13:30 80 26 H 08/03/22 13:30 160/89 H 08/03/22 13:15 84 25 H 08/03/22 13:15 143/100 H 08/03/22 13:00 85 30 H 08/03/22 13:00 158/88 H 08/03/22 12:50 173/97 H 08/03/22 12:50 97 H 32 H 08/03/22 12:45 100 H 19 12/05/22 12:33 98 H 42 H 08/03/22 12:33 193/107 H 08/03/22 12:30 94 H 38 H 08/03/22 12:15 94 H 24 08/03/22 12:00 83 23 08/03/22 12:00 193/124 H 08/03/22 12:51 93 H 26 H 08/03/22 11:47 78 18 08/03/22 11:09 82 21 08/03/22 10:22 79 08/03/22 08:00 08/03/22 08:00 08/03/22 09:19 95 H 215/155 H 08/03/22 07:35 36.6 C 85 24 238/146 H 08/03/22 06:22 36.4 C L 83 26 H 198/139 H 08/03/22 06:21 08/03/22 05:53 79 19 214/143 H 08/03/22 05:00 85 23 216/155 H 08/03/22 04:25 91 H 23 214/134 H 08/03/22 03:02 94 H 25 H 270/134 H 08/03/22 03:01 273/196 H BP Pulse Ox Pulse Ox O2 Del Method O2 Del Method 08/03/22 14:16 08/03/22 14:16 91 08/03/22 14:15 88 L 08/03/22 14:01 88 L 08/03/22 14:01 08/03/22 14:00 91 08/03/22 13:45 89 L 08/03/22 13:45 08/03/22 13:30 90 08/03/22 13:30 08/03/22 13:15 91 08/03/22 13:15 08/03/22 13:00 92 08/03/22 13:00 08/03/22 12:50 08/03/22 12:50 85 L 08/03/22 12:45 90 08/03/22 12:33 89 L 08/03/22 12:33 08/03/22 12:30 90 08/03/22 12:15 08/03/22 12:00 88 L 08/03/22 12:00 08/03/22 12:51 173/97 H 89 L Room Air 08/03/22 11:47 213/138 H 93 Room Air 08/03/22 11:09 214/150 H 95 Room Air 08/03/22 10:22 180/107 H 08/03/22 08:00 Room Air 08/03/22 08:00 94 Room Air 08/03/22 09:19 08/03/22 07:35 219/143 H 94 Room Air 08/03/22 06:22 230/158 H 94 Room Air 08/03/22 06:21 94 Room Air 08/03/22 05:53 Room Air 08/03/22 05:00 92 Room Air 08/03/22 04:25 93 Room Air 08/03/22 03:02 91 Room Air 08/03/22 03:01 Laboratory Results Short CBC 08/02/22 08/03/22 Range/Units 19:18 08:14 WBC 8.70 7.75 (4.8-10.8) K/ul Hgb 16.8 16.3 (14.0-18.0) g/dl Hct 51.5 H 50.3 (40.1-51.0) % Plt Count 224 209 (130-400) K/uL [facility] 08/02/22 08/03/22 19:18 08:14 Sodium 137 139 Potassium 3.9 3.7 Chloride 98 99 Carbon Dioxide 32 33 H BUN 18 16 Creatinine 1.06 1.08 Glucose 173 H 128 H Calcium 8.5 8.4 L Liver Function 08/02/22 08/02/22 08/03/22 Range/Units 19:18 22:31 08:14 Total Bilirubin 1.4 H 1.7 H (0.2-1.0) mg/dl Direct Bilirubin 0.4 H (0-0.2) mg/dl AST 20 18 (13-39) U/L ALT 16 15 (7-52) U/L Alkaline Phosphatase 80 74 (34-104) U/L Albumin 3.2 L 3.2 L (3.4-5.0) gm/dl 08/03/22 Range/Units 08:14 Total Bilirubin (0.2-1.0) mg/dl Direct Bilirubin 0.4 H (0-0.2) mg/dl AST (13-39) U/L ALT (7-52) U/L Alkaline Phosphatase (34-104) U/L Albumin (3.4-5.0) gm/dl Urine 08/02/22 Range/Units 19:24 Urine Color Dark Yellow Urine Appearance Clear (Clear) Urine pH 5.5 (4.5-7.5) Ur Specific [place] 1.028 (1.000-1.030) Urine Protein 4+ H (Negative) Urine Glucose (UA) Negative (Negative)
--- NOTE | 2022-08-03 16:53 | Electrocardiogram Report ---
Test Reason : Blood Pressure : / mmHG Vent. Rate : 101 BPM Atrial Rate : 101 BPM P-R Int : 154 ms QRS Dur : 096 ms QT Int : 364 ms P-R-T Axes : 058 -72 078 degrees QTc Int : 471 ms Poor data quality, interpretation may be adversely affected Sinus tachycardia Left anterior fascicular block Abnormal ECG No previous ECGs available Confirmed by Lion Gillespie ([id number]) on 08/03/2022 4:53:41 PM Referred By: REFERRED SELF Confirmed By:Lion Gillespie
[2022-08-03] MEDS: hydrALAZINE HCL 25 MG TAB PO SCH (19:51)
[2022-08-03] MEDS: carvediloL 6.25 MG TAB PO SCH (19:51)
[2022-08-04] MEDS: niCARdipine 25 MG in SODIUM CHLORIDE 0.9% 240 ML IV SCH ×4 (00:22→10:50)
[2022-08-04 05:37] LABS: Hematocrit (blood only) 46.9 % (40.1-51.0); Mean Corpuscular Hemoglobin 29.4 pg (25.0-34.0); Platelet Count 212 K/uL (130-400); RDW Coefficient of Variation 13.8 % (11.5-14.5); RDW Standard Deviation 47.3 fL (36.4-46.3); White Blood Count 7.71 K/ul (4.8-10.8)
[2022-08-04 05:39] LABS: BUN Creatinine Ratio 14.2 (10-20); Calcium 7.7 mg/dl (8.5-10.1); Chol HDL Ratio 6.6 (0-5); Creatinine Clr Calc Pharmacy 98.2 ml/min; Est GFR (African American) 89.2 ml/min; Magnesium 1.5 mg/dl (1.7-2.4); Potassium 3.3 mmol/L (3.5-5.1)
[2022-08-04] MEDS: MAGNESIUM SULFATE / D5W 1 GM/100 ML BAG IV SCH ×3 (06:39→10:54)
[2022-08-04] MEDS: POTASSIUM CHLORIDE / WTR 10 MEQ/100 ML PLCT IV SCH ×4 (06:39→10:29)
[2022-08-04] MEDS: INSULIN ASPART PER UNIT SC SCH ×4 (07:38→21:15)
[2022-08-04] MEDS: hydrALAZINE HCL 25 MG TAB PO SCH ×3 (07:59→21:15)
[2022-08-04] MEDS: FUROSEMIDE 40 MG/4 ML VIAL IV SCH ×2 (07:59→17:07)
[2022-08-04] MEDS: carvediloL 6.25 MG TAB PO SCH ×2 (08:00→21:13)
--- NOTE | 2022-08-04 08:05 | Critical Care Progress Note ---
Date of Service August 04, 2022 Assessment & Plan (1) Stroke: Plan: ICU Assessment and Plans Reason Critically Ill: 46-year-old male here with undiagnosed PMHx who presented with hypertensive urgency and who was admitted for heart failure and concern [facility]. Neuro - [facility] ICU: NEGATIVE Sedation: none Analgesia: none Hemorrhagic stroke -CT head: Hyperdensities in the right cerebellum and ludwig are concerning for intracranial hemorrhage in this patient with a hypertensive crisis. -recommend MRI brain, patient adamantly denies MRI and sedation, states he does not want invasive intervention -neurology consulted may require transfer to tertiary center repeat CT head in morning unchanged consider CTA head neck tomorrow Cardiac - Hypertensive urgency -blood pressure on admit 215/137 -started on nicardipine drip in ICU, BP recheck 158/88 nicardipine drip discontinued -continue lisinopril, coreg, HCTZ, spironolactone, hydralazine, IV furosemide -CT A/P: no aortic dissection CHF -echo: EF 45-50%, severe concentric LVH, severe pulm HTN -cardiology consulted recommend outpatient cardiac MRI hold off ASA given recent hemorrhagic stroke will require outpatient f/u -troponin elevated but stable Hyperlipidemia -total cholesterol 210 -consider starting low dose statin Atorvastatin 40mg once hemorrhagic stroke managed Elevated D-Dimer -CTA chest negative for PE -venous doppler negative Respiratory - Tobacco Abuse -currently smoking 15 cigarettes daily, advise smoking cessation -wheeze noted on exam improved today, recommend PFTs in outpatient B/l Pleural Effusions -noted on CT -started lasix Hypoxia -continue NC, wean as tolerated - recommend sleep study in outpatient patient denies history snoring or nighttime awakening GI - heart healthy carb consistent diet fluid restriction Hepatic steatosis with concern cirrhosis -noted on CT with numerous small enhancing lesions -MRI liver recommended -total bili 1.7 -hepatic panel pending -consulted GI, will require outpatient f/u RENAL/LYTES - No significant electrolyte derangement. Replace lytes as needed. - No concerns at this time. 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 ID - No concerns for infection at this point. INTEGUMENTARY - skin clean dry intact LINES/IV ACCESS - PIVs intact. DVT PROPHYLAXIS - SCDs Thank you for allowing us to be part of this patient's care. Please refer to Dr. Rowan's documentation for any further recommendations. (2) Congestive heart failure due to hypertension: (3) Hypertensive urgency: (4) Cirrhosis: (5) Ascites: (6) Morbid obesity: (7) Pulmonary hypertension: (8) CAD (coronary artery disease): Plan Patient seen exam with resident physician. Agree with assessment and plan aside for any additions/exceptions noted: Patient nonfocal on exam and doing well. Blood pressure much better controlled. CT head with improved hemorrhagic stroke. Appreciate neurology and cardiology input. Defer antihypertensive regimen to cardiology given evidence of hypertensive cardiomyopathy. ? Infiltrative cardiomyopathy. Patient stable for downgrade to PCU status. Discussed with hospitalist. Palpation work-up regarding liver lesions noted on CT abdomen. Admission and Anticipated Discharge Date Admission Date: August 03, 2022 Subjective 46yo Male seen at bedside, calm comfortable cooperative. States he slept ate well no issues going to bathroom, swelling in his legs much improved, no longer has abd pain. He denies headache dizziness weakness difficulty with speech change in vision SOB chest pain abd pain numbness tingling. Patient states he does not need clarification on information received yesterday. He has not had a chance to walk yet. Patient understands we will obtain repeat imaging of his head to monitor for any changes. Review of Systems Review of Systems: All systems reviewed & are unremarkable except as noted in HPI & below Physical Exam Constitutional: + morbidly obese Eyes: PERRL, conjunctivae normal, anicteric sclerae ENMT: external ear and nose normal, oropharynx normal Neck: trachea midline, no thyromegaly Respiratory: Auscultation: + wheezes (LUQ) Cardiovascular: Rate/Rhythm: regular rate and regular rhythm Extremities: + edema (pitting +2 b/l to lower leg) Gastrointestinal (Abdomen): Inspection/Auscultation: abdomen normal to inspection and + abdomen distended Percussion/Palpation: abdomen soft; abdomen nontender Neurologic: CN's II-XI intact bilaterally and moves all extremities Coordination: normal [id number] test and normal rapid alternating movements Results & Data Results & Data ([facility]) Vital Signs (Past 12 Hours) Vital Signs Temp Pulse Pulse Resp BP BP Pulse Ox 08/04/22 07:45 165/91 H 08/04/22 07:45 78 22 95 08/04/22 07:00 72 22 95 08/04/22 07:00 152/90 H 08/04/22 06:00 133/82 08/04/22 07:51 37.2 C 08/04/22 06:00 67 17 133/82 94 08/04/22 05:00 67 18 131/83 93 08/04/22 04:00 37 C 65 18 141/81 H 92 08/04/22 03:00 80 22 144/75 H 92 08/04/22 02:00 70 18 138/89 94 08/04/22 01:00 69 24 152/84 H 93 08/04/22 00:00 36.6 C 70 19 132/73 92 08/04/22 00:00 08/03/22 23:00 77 24 138/73 92 08/03/22 22:30 77 16 131/81 93 08/03/22 22:00 74 22 129/73 92 08/03/22 21:00 83 23 149/82 H 92 08/03/22 20:00 36.8 C 81 25 H 145/80 H 92 08/03/22 20:00 Pulse Ox O2 Del Method O2 Del Method O2 Flow Rate O2 Flow Rate 08/04/22 07:45 08/04/22 07:45 08/04/22 07:00 08/04/22 07:00 08/04/22 06:00 08/04/22 07:51 08/04/22 06:00 Nasal Cannula 3 08/04/22 05:00 Nasal Cannula 3 08/04/22 04:00 Nasal Cannula 3 08/04/22 03:00 Nasal Cannula 3 08/04/22 02:00 Nasal Cannula 4 08/04/22 01:00 Nasal Cannula 3 08/04/22 00:00 Nasal Cannula 3 08/04/22 00:00 92 Nasal Cannula 3 08/03/22 23:00 Nasal Cannula 2 08/03/22 22:30 Nasal Cannula 2 08/03/22 22:00 Nasal Cannula 2 08/03/22 21:00 Nasal Cannula 2 08/03/22 20:00 Nasal Cannula 2 08/03/22 20:00 Nasal Cannula 2 Diagnostic Findings Laboratory Results WBC 7.71 K/ul (4.8-10.8) 08/04/22 04:38 RBC 5.10 M/uL (4.63-6.08) 08/04/22 04:38 Hgb 15.0 g/dl (14.0-18.0) 08/04/22 04:38 Hct 46.9 % (40.1-51.0) 08/04/22 04:38 MCV 92.0 fL (80.0-100.0) 08/04/22 04:38 MCH 29.4 pg (25.0-34.0) 08/04/22 04:38 MCHC 32.0 g/dL (32.0-36.0) 08/04/22 04:38 RDW Std Deviation 47.3 fL (36.4-46.3) H 08/04/22 04:38 RDW Coeff of Nain 13.8 % (11.5-14.5) 08/04/22 04:38 Plt Count 212 K/uL (130-400) 08/04/22 04:38 MPV 13.0 fL (9.4-12.4) H 08/04/22 04:38 Immature Gran % (Auto) 0.3 % 08/03/22 08:14 Neut % (Auto) 72.3 % 08/03/22 08:14 Lymph % (Auto) 16.4 % 08/03/22 08:14 [place] % (Auto) 9.3 % 08/03/22 08:14 Eos % (Auto) 1.3 % 08/03/22 08:14 Baso % (Auto) 0.4 % 08/03/22 08:14 Neut # (Auto) 5.61 K/uL (1.4-6.5) 08/03/22 08:14 Lymph # (Auto) 1.27 K/uL (1.2-3.4) 08/03/22 08:14 [place] # (Auto) 0.72 K/uL (0.24-0.82) 08/03/22 08:14 Eos # (Auto) 0.10 K/uL (0-0.50) 08/03/22 08:14 Baso # (Auto) 0.03 K/uL (0-0.2) 08/03/22 08:14 Immature Gran # (Auto) 0.02 K/uL (0.00-0.02) 08/03/22 08:14 PT 13.3 Seconds (9.0-12.0) H 08/03/22 00:21 INR 1.3 (0.9-1.1) H 08/03/22 00:21 APTT 30.8 Seconds (21.0-31.0) 08/03/22 00:21 PTT Ratio 1.1 08/03/22 00:21 D-Dimer 1150 ug/L FEU (0-500) H* 08/02/22 22:31 Sodium 140 mmol/L (136-145) 08/04/22 04:38 Potassium 3.3 mmol/L (3.5-5.1) L 08/04/22 04:38 Chloride 96 mmol/L (98-107) L 08/04/22 04:38 Carbon Dioxide 37 mmol/L (21-32) H 08/04/22 04:38 Anion Gap 7 (3-11) 08/04/22 04:38 BUN 16 mg/dl (6-23) 08/04/22 04:38 Creatinine 1.13 mg/dl (0.6-1.4) 08/04/22 04:38 Est Cr Clr Drug Dosing 98.2 ml/min 08/04/22 04:38 Est GFR ( Amer) 89.2 ml/min 08/04/22 04:38 Est GFR (Non-Af Amer) 77.0 ml/min 08/04/22 04:38 BUN/Creatinine Ratio 14.2 (10-20) 08/04/22 04:38 Glucose 115 mg/dl (70-99(Fasting)) H 08/04/22 04:38 POC Glucose 109 mg/dl (70-99) H 08/04/22 07:23 Estimat Average Glucose 166 mg/dl 08/02/22 19:18 Hemoglobin A1c 7.4 % (4.5-5.6) H 08/02/22 19:18 Calcium 7.7 mg/dl (8.5-10.1) L 08/04/22 04:38 Phosphorus 6.0 mg/dl (2.5-4.9) H 08/04/22 04:38 Magnesium 1.5 mg/dl (1.7-2.4) L 08/04/22 04:38 Iron 53 mcg/dl (35-175) 08/03/22 08:14 Ferritin 86.6 ng/ml (8-388) 08/03/22 08:14 Total Bilirubin 1.7 mg/dl (0.2-1.0) H 08/03/22 08:14 Direct Bilirubin 0.4 mg/dl (0-0.2) H 08/03/22 08:14 AST 18 U/L (13-39) 08/03/22 08:14 ALT 15 U/L (7-52) 08/03/22 08:14 Alkaline Phosphatase 74 U/L (34-104) 08/03/22 08:14 Troponin I High Sens 40.0 pg/ml (0-20) H 08/03/22 08:14 B-Natriuretic Peptide 994 pg/ml (0-100) H 08/02/22 22:31 Total Protein 7.3 gm/dl (6.0-8.3) 08/03/22 08:14 Albumin 3.2 gm/dl (3.4-5.0) L 08/03/22 08:14 Globulin 4.1 gm/dl (2.5-4.0) H 08/03/22 08:14 Albumin/Globulin Ratio 0.8 (0.9-2) L 08/03/22 08:14 Triglycerides 109 mg/dl (0-150) 08/04/22 04:38 Cholesterol 210 mg/dl (0-200) H 08/04/22 04:38 LDL Cholesterol, Calc 156 mg/dl 08/04/22 04:38 VLDL Cholesterol, Calc 22 mg/dl (0-30) 08/04/22 04:38 HDL Cholesterol 32 mg/dl 08/04/22 04:38 Cholesterol/HDL Ratio 6.6 (0-5) H 08/04/22 04:38 Lipase 22 U/L (11-82) 08/02/22 19:18 TSH 2.380 uIu/ml (0.300-4.500) 08/02/22 19:18 Urine Color Dark Yellow 08/02/22 19:24 Urine Appearance Clear (Clear) 08/02/22 19:24 Urine pH 5.5 (4.5-7.5) 08/02/22 19:24 Ur Specific [place] 1.028 (1.000-1.030) 08/02/22 19:24 Urine Protein 4+ (Negative) H 08/02/22 19:24 Urine Glucose (UA) Negative (Negative) 08/02/22 19:24 Urine Ketones Trace (Negative) H 08/02/22 19:24 Urine Blood 2+ (Negative) H 08/02/22 19:24 Urine Nitrite Negative (Negative) 08/02/22 19:24 Urine Bilirubin 1+ (Negative) H 08/02/22 19:24 Urine Urobilinogen Negative (Negative) 08/02/22 19:24 Ur Leukocyte Esterase Negative (Negative) 08/02/22 19:24 Urine WBC (Auto) 1-5 /hpf (0-5) 08/02/22 19:24 Urine RBC (Auto) 5-10 /hpf (0-4) H 08/02/22 19:24 U Hyaline Cast (Auto) >30 /lpf (0-5) H 08/02/22 19:24 U Epithel Cells (Auto) 5-10 /lpf (0-5) H 08/02/22 19:24 Urine Bacteria (Auto) Negative (Negative) 08/02/22 19:24 Ur Renal Epithelial Cell Not Reportable 08/02/22 19:24 Granular Casts 1-5 /lpf (0) H 08/02/22 19:24 Nasal Screen MRSA (PCR) Negative (Negative) 08/03/22 06:15 Urine Opiates Screen Neg (Neg) 08/03/22 07:25 Ur Methadone, Qual Neg (Neg) 08/03/22 07:25 Urine Barbiturates Neg (Neg) 08/03/22 07:25 Ur Phencyclidine (PCP) Neg (Neg) 08/03/22 07:25 U Amphetamin/Meth Scrn Neg (Neg) 08/03/22 07:25 MDMA (Ecstasy) Screen Neg (Neg) 08/03/22 07:25 U Benzodiazepines Scrn Neg (Neg) 08/03/22 07:25 Ur Cocaine Metabolite Neg (Neg) 08/03/22 07:25 U Marijuana (THC) Screen Neg (Neg) 08/03/22 07:25 Ethyl Alcohol mg/dL < 10.0 mg/dl (<10.0) 08/03/22 05:32 SARS-CoV-2, RNA, NAAT NEGATIVE (NEGATIVE) 08/03/22 03:10 Impressions Abdomen/Pelvis CT 08/02/22 21:53 CT abd pelvis IV con only CLINICAL HISTORY: abdominal pain, umbilical hernia TECHNIQUE: Helical axial images of the abdomen and pelvis were obtained and displayed. Automated dose lowering techniques and/or adjustment according to patient size were utilized for this exam. This exam was performed with intravenous contrast. COMPARISON: None available at the time of this dictation. FINDINGS: Lower chest: Mild right and trace left pleural effusions noted. There is associated atelectasis. Liver: Nodular contour of the liver is seen compatible with cirrhosis. Numerous small enhancing lesions are seen. Gallbladder and biliary tree: Pericholecystic fluid is seen without emy wall thickening. No intra- or extrahepatic biliary ductal dilation. Pancreas: Unremarkable, no focal lesions. Spleen: Unremarkable. Adrenals: Unremarkable. Kidneys and ureters: Exophytic cyst measuring 12 mm is seen in the left kidney. Bladder: Unremarkable. Reproductive organs: Unremarkable. Bowel: Unremarkable appearance of the bowel. The appendix is normal. Lymph nodes Retroperitoneal: Unremarkable. Pelvic: Prominent subcentimeter inguinal nodes are noted. Mesenteric: Unremarkable. Peritoneum: Trace abdominal fluid is seen. Vessels: Atherosclerotic calcifications are seen. A few varices are noted in the body wall. Abdominal wall: An umbilical hernia is seen containing fat and fluid. Body wall edema is noted. Bones: Degenerative changes in the visualized spine. IMPRESSION: 1. Cirrhotic contour of the liver with numerous enhancing small nodules. If not previously evaluated, MRI liver mass protocol is recommended. 2. Umbilical hernia containing fat and fluid. 3. Bilateral pleural effusions and small volume ascites. ACT 112: Negative or not required by law. Electronically signed by: Marquise Hwang M.D. 08/03/2022 9:58 AM Chest X-Ray 08/02/22 21:53 XR chest 1V portable CLINICAL HISTORY: Shortness of breath. COMPARISON STUDY: None. FINDINGS: Moderate cardiomegaly is noted. There is pulmonary vascular congestion with small bilateral pleural effusions. There is no pneumothorax. IMPRESSION: Cardiomegaly. Pulmonary vascular congestion with small bilateral pleural effusions. ACT 112: Negative or not required by law. Electronically signed by: Anastacio Gonzales M.D. 08/03/2022 11:07 AM Chest CTA 08/02/22 23:35 CT ANGIOGRAPHY OF THE CHEST, PULMONARY EMBOLUS PROTOCOL CLINICAL HISTORY: Shortness of breath. Evaluate for pulmonary embolus. COMPARISON STUDY: Chest radiograph performed earlier today. TECHNIQUE: Following IV administration of 117 mL of Optiray, helical axial images of the chest were obtained utilizing the pulmonary embolus protocol. Maximal intensity projections and sagittal and coronal reformats were viewed on an independent 3D workstation. IV contrast was administered without complication. Automated exposure control was utilized for the study. A dose lowering technique was utilized adhering to the principles of ALARA. CT DOSE: 2329.08 mGy.cm FINDINGS: No pulmonary emboli are identified. Moderate cardiomegaly is noted. There is no pericardial effusion. There is aortic valvular calcification. Small to moderate right and small left pleural effusions are noted. Subpleural opacities within the lower lungs favor atelectasis. There is no consolidation to suggest pneumonia. There is mild interlobular septal thickening. No thoracic lymphadenopathy is present. Abdomen and pelvis will be reported separately. Upper abdominal ascites is noted. There is hepatic steatosis with suspected cirrhosis. Numerous hypervascular hepatic foci are noted on the CT of the abdomen and pelvis. These are not well visualized on this exam. IMPRESSION: 1. No pulmonary emboli identified. 2. Cardiomegaly. Small to moderate right and small left pleural effusions. Possible interstitial mild pulmonary edema. 3. Hepatic steatosis and suspected cirrhosis. Numerous hypervascular hepatic foci/lesions are better depicted on the CT of the abdomen or pelvis. These are indeterminate. Nonemergent liver protocol MRI is recommended. ACT 112: Negative or not required by law. Electronically signed by: Anastacio Gonzales M.D. 08/03/2022 9:00 AM Venous Doppler Study 08/02/22 23:35 BILATERAL LOWER EXTREMITY VENOUS DOPPLER CLINICAL HISTORY: leg swelling, elevated D-dimer COMPARISON STUDY: No previous studies for comparison. TECHNIQUE: Sonography of the deep venous system of the bilateral lower extremities was performed. Compression and augmentation were evaluated. FINDINGS: The bilateral common femoral, superficial femoral and popliteal veins were compressible. Augmentation was normal. Flow was shown within the deep calf vessels. There is minimal superficial thrombus adherent to the islas of the bilateral greater saphenous veins. The focus within the left greater saphenous vein measures 1 cm in extent. IMPRESSION: 1. No evidence of deep venous thrombus within the bilateral lower extremities. 2. Minimal superficial thrombus within the bilateral greater saphenous veins. This finding will be called/faxed to ordering provider at time of dictation. ACT 112: Negative or not required by law. Electronically signed by: Anastacio Gonzales M.D. 08/03/2022 7:[address] 08/03/22 08:16 CT head/brain wo con CLINICAL HISTORY: hypertensive crisis Technique: Contiguous axial CT images of the head were acquired from the base of the skull to the vertex without intravenous contrast administration. Images were viewed in brain, subdural and bone windows. Automated dose lowering techniques and/or adjustment according to patient size were utilized for this exam. Comparison: None available at the time of this dictation. Findings: Radiodensities are seen in the right cerebellum and ludwig. Imaged portions of the paranasal sinuses and mastoid air cells are clear. The orbits appear normal. There are no acute fractures of the calvaria or scalp swelling. Impression: Hyperdensities in the right cerebellum and ludwig are concerning for intracranial hemorrhage in this patient with a hypertensive crisis. ACT 112: Negative or not required by law. Electronically signed by: Marquise Hwang M.D. 08/03/2022 10:07 AM Abdomen Ultrasound 08/03/22 13:40 US abdomen limited HISTORY: 46 years-old Male ascites (enough for tap?), hepatic lesions abdominal ascites with numerous hepatic lesions COMPARISON: CT abdomen and pelvis of same day TECHNIQUE: Multiple real-time sonographic images of the abdomen assessing for ascitic fluid were obtained assessing grayscale appearance FINDINGS: Heterogeneous appearance of the liver. The previously noted hepatic lesions are not identified by ultrasound. There is only a small amount of abdominal ascites noted, predominantly within a perihepatic distribution. IMPRESSION: Small volume of abdominal ascites, predominantly within a perihep atic distribution. ACT 112: Negative or not required by law. The above report was generated using voice recognition software. It may contain grammatical, syntax or spelling errors. Electronically signed by: Jj Wiley M.D. 08/03/2022 2:44 PM Medications Administered Current Inpatient Medications Acetaminophen (Acetaminophen 500 Mg Tab) 500 mg PO Q6H PRN PRN Reason: pain/fever Stop: 09/02/22 06:03 Carvedilol (Carvedilol 6.25 Mg Tab) 6.25 mg PO BID DAPHNIE Stop: 09/02/22 20:59 Last Admin: 08/03/22 19:51 Dose: 6.25 mg Dextrose (Dextrose 50% 50 Ml Syringe) 25 - 50 ml IV UD PRN; Protocol PRN Reason: Hypoglycemia Protocol Stop: 09/02/22 08:46 Enoxaparin Sodium (Enoxaparin Inj 40 Mg/0.4 Ml Syr) 40 mg SQ QAM DAPHNIE Stop: 09/02/22 08:59 Last Admin: 08/03/22 07:59 Dose: 40 mg Furosemide (Furosemide 40 Mg/4 Ml Vial) 40 mg IV [id number] DAPHNIE Stop: 09/02/22 08:59 Last Admin: 08/03/22 16:32 Dose: 40 mg Glucagon (Glucagon For Inj 1 Mg Vial) 1 mg SQ UD PRN; Protocol PRN Reason: Hypoglycemia Protocol Stop: 09/02/22 08:46 Glucose (Glucose 40% Gel 15 Gm Tube) 15 - 30 gm PO UD PRN; Protocol PRN Reason: Hypoglycemia Protocol Stop: 09/02/22 08:46 Glucose (Glucose 10 Tab/Tube) 4 - 8 tab PO UD PRN; Protocol PRN Reason: Hypoglycemia Treatment Stop: 09/02/22 08:46 Hydralazine HCl (Hydralazine Hcl 25 Mg Tab) 25 mg PO TID [facility] Stop: 09/02/22 20:59 Last Admin: 08/03/22 19:51 Dose: 25 mg Promethazine HCl 12.5 mg/ (Sodium Chloride) 50.5 mls @ 202 mls/hr IV Q6H PRN PRN Reason: Nausea And Vomiting Stop: 09/02/22 06:03 Nicardipine HCl 25 mg/ Sodium (Chloride) 250 mls @ 0 mls/hr IV .Q0M DAPHNIE; Protocol Stop: 09/02/22 11:14 Last Titration: 08/04/22 05:10 Dose: 0 mg/hr, 0 mls/hr Potassium Chloride (K Abhinav / Wtr) 10 meq in 100 mls @ 100 mls/hr IV Q1H DAPHNIE Stop: 08/04/22 10:29 Last Admin: 08/04/22 07:34 Dose: 100 mls/hr Magnesium Sulfate/Dextrose (Magnesium Sulfate / D5w) 1 gm in 100 mls @ 50 mls/hr IV Q2H [facility] Stop: 08/04/22 12:29 Last Admin: 08/04/22 06:39 Dose: 50 mls/hr Insulin Aspart (Insulin Aspart Per Unit) 0 units SC ACHS [facility]; Protocol Stop: 09/02/22 11:29 Last Admin: 08/04/22 07:38 Dose: 2 units Lisinopril (Lisinopril 10 Mg Tab) 10 mg PO QAM DAPHNIE Stop: 09/03/22 08:59 Miscellaneous (Carbohydrates For Hypoglycemia ) 15 - 30 gm PO UD PRN PRN Reason: Hypoglycemia Protocol Stop: 09/02/22 08:46 Nitroglycerin (Nitroglycerin Sl 0.4 Mg/Tab Tab) 0.4 mg SL UD PRN PRN Reason: Chest Pain Stop: 09/02/22 06:03 Tramadol HCl (Tramadol Hcl 50 Mg Tablet) 25 - 50 mg PO Q4H PRN PRN Reason: Pain Stop: 09/02/22 06:03 Resident Activity Tracking Resident Involvement: Resident Care Provided Care Provided: Adult Hospital Medicine (1) Ascites Ascites type: other type Qualified Code(s): R18.8 - Other ascites (2) Cirrhosis Ascites presence: with ascites Hepatic cirrhosis type: unspecified hepatic cirrhosis Qualified Code(s): K74.60 - Unspecified cirrhosis of liver; R18.8 - Other ascites
--- NOTE | 2022-08-04 08:57 | Billing Data ---
Date of Service August 04, 2022 Coding Level of Care Code 34381 Subseq Hosp Care Lvl 3
[2022-08-04] MEDS ORDERED: lisinopril 10 MG TAB PO SCH (09:00)
[2022-08-04] MEDS ORDERED: lisinopril 5 MG TAB PO SCH (09:00)
--- NOTE | 2022-08-04 09:38 | Neurology Progress Note ---
Date of Service August 04, 2022 Assessment & Plan (1) Intracerebral hemorrhage: (2) Stroke: (3) Hypertensive urgency: (4) Congestive heart failure due to hypertension: (5) Diabetes: Plan This patient has 2 significant intercerebral hemorrhages seen on CT scan including the right cerebellar hemisphere and midline ludwig (Or perhaps the roof of the 4th ventricle instead of the ludwig). CT scan of the head today shows improvement in these hemorrhages compared to yesterday. 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 His blood pressure was extraordinarily high and is resulted in congestive heart failure. He does have elevated hemoglobin A1c. he was not on any medication including blood thinners in the past. On exam, he does not have any specific focal neurologic findings or deficits, meningeal signs, or encephalopathy , however, he may have some subtle ataxia of the right upper extremity. overall, he seems improved clinically and his blood pressure and glucose are improved. Recommendations: 1. Control blood pressure as you are doing, aiming for a mean arterial pressure of approximately 100. 2. control glucose, aiming to lower the hemoglobin A1c less than 7. 3. Patient will be a candidate for normal dose stat ( not dose the DETONATOR MAKER hemorrhage) 4. consider MRI of the brain tomorrow patient is willing. 5. consider CT angiography of the head and neck tomorrow. 6. Discontinue all cigarette smoking and chewing tobacco. 7. discontinue alcohol . 8. 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 Rowan, and Dr. Hugo, including differential diagnosis and treatment options. Admission and Anticipated Discharge Date Admission Date: August 03, 2022 Subjective Patient feels fine , overall. He has no headache or pain. He has no dizziness, weakness, or numbness. His vision is stable. Nursing reports no new events overnight. Blood pressure is 152/89 with a temperature 37.2. CBC was unremarkable and Chem profile showed a glucose of 115 and mildly low calcium and magnesium. Cholesterol was elevated 210 and triglyceride was normal at 109. CT scan of the head showed the right cerebellar bleed which to me seems less prominent than yesterday CT. In addition there is some hemorrhage just below the ludwig ( perhaps the roof of the 4th ventricle ) and it looked a little less prominent than yesterday also. I am awaiting the official interpretation however. Results & Data ([facility]) Vital Signs (Past 12 Hours) Vital Signs Temp Pulse Pulse Resp BP BP Pulse Ox 08/04/22 08:00 75 24 92 08/04/22 08:00 152/89 H 08/04/22 08:00 80 08/04/22 07:45 165/91 H 08/04/22 07:45 78 22 95 08/04/22 07:00 72 22 95 08/04/22 07:00 152/90 H 08/04/22 06:00 133/82 08/04/22 07:51 37.2 C 08/04/22 06:00 67 17 133/82 94 08/04/22 05:00 67 18 131/83 93 08/04/22 04:00 37 C 65 18 141/81 H 92 08/04/22 03:00 80 22 144/75 H 92 08/04/22 02:00 70 18 138/89 94 08/04/22 01:00 69 24 152/84 H 93 08/04/22 00:00 36.6 C 70 19 132/73 92 08/04/22 00:00 08/03/22 23:00 77 24 138/73 92 08/03/22 22:30 77 16 131/81 93 08/03/22 22:00 74 22 129/73 92 Pulse Ox O2 Del Method O2 Del Method O2 Flow Rate O2 Flow Rate 08/04/22 08:00 Nasal Cannula 2 08/04/22 08:00 08/04/22 08:00 08/04/22 07:45 08/04/22 07:45 08/04/22 07:00 08/04/22 07:00 08/04/22 06:00 08/04/22 07:51 08/04/22 06:00 Nasal Cannula 3 08/04/22 05:00 Nasal Cannula 3 08/04/22 04:00 Nasal Cannula 3 08/04/22 03:00 Nasal Cannula 3 08/04/22 02:00 Nasal Cannula 4 08/04/22 01:00 Nasal Cannula 3 08/04/22 00:00 Nasal Cannula 3 08/04/22 00:00 92 Nasal Cannula 3 08/03/22 23:00 Nasal Cannula 2 08/03/22 22:30 Nasal Cannula 2 08/03/22 22:00 Nasal Cannula 2 Exam (Neuro) Physical Exam: He is awake and alert. Speech is without aphasia or dysarthria. Mood and affect seem normal appropriate. Thought processes are intact with good memory to conversation. Extraocular eye muscles are intact without nystagmus. There is no facial droop. Coordination is reasonable in the arms, with eyes open, without obvious ataxia. However with eyes closed he did not hit the target with his right upper extremity as well as his left. Strength is 5/5 diffusely in all major muscle groups in arms and legs both proximally and distally. He has no abnormal involuntary movements. PG Care Time/CCT Total # of Minutes Spent Total Time Spent with Patient: Total time spent is greater than 50% in coordination of care (as documented) at patient's floor/unit and/or counseling patient: Coding Level of Care Code 06318 Subseq Hosp Care Lvl 3 Diagnoses Intracerebral hemorrhage I61.9 Stroke I63.9 Hypertensive urgency I16.0 Congestive heart failure due to hypertension I11.0 Diabetes E11.9 Time Spent (min) 35
--- NOTE | 2022-08-04 10:10 | CT Scan Report ---
CT OF THE HEAD WITHOUT CONTRAST CLINICAL HISTORY: Intracranial hemorrhage. COMPARISON STUDY: Head CT August 03, 2022. CT DOSE: 882.80 mGycm TECHNIQUE: Helical axial images of the head were obtained without IV contrast. Automated exposure con trol was utilized for the study. A dose lowering technique was utilized adhering to the principles o f ALARA. FINDINGS: A 1.7 cm hyperdense focus within the ludwig is similar to CT of August 03, 2022. There is a 1.4 cm hyperdense focus within the right cerebellar hemisphere. The density of this focus has slightl y decreased. Hypodensity within left cerebellar hemisphere is noted. This may be artifactual. Ventric ular system is stable. Basal cisterns are patent. Equivocal effacement of the fourth ventricle is not ed. Cavum septum pellucidum is present. No additional sites of intracranial hemorrhage are present. A mucous retention cyst within the right maxillary sinus is incidentally noted. IMPRESSION: 1. No change in a 1.7 cm hyperdense focus within the ludwig. Slight decrease in attenuation of a hyperd ense focus within the right cerebellar hemisphere since prior head CT. These favor foci of intracrani al hemorrhage. However, imaging follow-up to ensure resolution is recommended to exclude the possibil ity for underlying lesions. 2. Hypodensity within the left cerebellar hemisphere. This is likely artifactual however given equivo bhavna effacement of the fourth ventricle, this should be assessed on subsequent exams. No hydrocephalus . ACT 112: Negative or not required by law. Electronically signed by: Anastacio Gonzales M.D. 08/04/2022 10:09 AM
--- NOTE | 2022-08-04 10:25 | Cardiology Progress Note ---
Date of Service August 04, 2022 Assessment & Plan (1) Hypertensive urgency: Plan: The pathophysiology and medical consequences of longstanding uncontrolled hypertension were discussed with the patient and his at great lengths again today. Head CT reviewed, pt refusing MRI despite repeat recommendations from me Will increase lisinopril to a total of 40 mg daily today. started on coreg will start HCTZ and spironolactone today as well, follow K and replete as necessary (2) NICM (nonischemic cardiomyopathy): Plan: No signs of acute coronary syndrome. EKG reveals left anterior fascicular block Severe concentric LVH on echocardiogram, most likely hypertensive in nature but will require outpatient cardiac MRI to rule out infiltrative disease as well GDMT initiated (3) CAD (coronary artery disease): Plan: CT of the chest personally reviewed shows coronary artery calcifications present in both the left and right coronary artery distributions No clinical criteria for acute coronary syndrome is present May consider stress cardiac MRI to be completed in [place] in the future will start atorvastatin 40mg po daily as well hold off on asa given hemorrhagic head CT findings (4) Pulmonary hypertension: Plan: Started on Lasix 40 mg IV twice daily We will continue to follow clinically (5) Morbid obesity: (6) Mitral regurgitation: Admission and Anticipated Discharge Date Admission Date: August 03, 2022 Subjective Pt seen and examined. Chart reviewed. Telemetry reviewed. at bedside, states that he feels well. Review of Systems Review of Systems: All systems reviewed & are unremarkable except as noted in HPI & below Physical Exam Physical Exam: General: Awake, alert and oriented x 3. No acute distress. HEENT: Normocephalic, atraumatic. Pupils equal, round and reactive to light and accommodation. Extraocular muscles are intact. Anicteric sclera. Moist mucous membranes. Neck: No JVD. No bruit. Cardiovascular: Regular. Positive S-4. Normal S-1 and S-2. No S-3. No murmurs or rubs. Pulmonary: Clear to auscultation B/L. No rales, rhonchi or wheezing Abdomen: Bowel sounds x 4, distended. No rebound, guarding or tenderness. No organomegaly. Extremities: No clubbing, cyanosis. +2 bilateral lower extremity pitting edema. +2 pedal pulses bilaterally. Skin: Warm and dry. Results & Data ([facility]) Vital Signs (Past 12 Hours) Vital Signs Temp Pulse Pulse Resp BP BP Pulse Ox 08/04/22 10:00 64 22 95 08/04/22 09:11 166/97 H 08/04/22 09:11 76 24 96 08/04/22 09:09 75 18 96 08/04/22 08:00 75 24 92 08/04/22 08:00 152/89 H 08/04/22 08:00 80 08/04/22 07:45 165/91 H 08/04/22 07:45 78 22 95 08/04/22 07:00 72 22 95 08/04/22 07:00 152/90 H 08/04/22 06:00 133/82 08/04/22 07:51 37.2 C 08/04/22 06:00 67 17 133/82 94 08/04/22 05:00 67 18 131/83 93 08/04/22 04:00 37 C 65 18 141/81 H 92 08/04/22 03:00 80 22 144/75 H 92 08/04/22 02:00 70 18 138/89 94 08/04/22 01:00 69 24 152/84 H 93 08/04/22 00:00 36.6 C 70 19 132/73 92 08/04/22 00:00 08/03/22 23:00 77 24 138/73 92 08/03/22 22:30 77 16 131/81 93 Pulse Ox O2 Del Method O2 Del Method O2 Flow Rate O2 Flow Rate 08/04/22 10:00 08/04/22 09:11 08/04/22 09:11 08/04/22 09:09 08/04/22 08:00 Nasal Cannula 2 08/04/22 08:00 08/04/22 08:00 08/04/22 07:45 08/04/22 07:45 08/04/22 07:00 08/04/22 07:00 08/04/22 06:00 08/04/22 07:51 08/04/22 06:00 Nasal Cannula 3 08/04/22 05:00 Nasal Cannula 3 08/04/22 04:00 Nasal Cannula 3 08/04/22 03:00 Nasal Cannula 3 08/04/22 02:00 Nasal Cannula 4 08/04/22 01:00 Nasal Cannula 3 08/04/22 00:00 Nasal Cannula 3 08/04/22 00:00 92 Nasal Cannula 3 08/03/22 23:00 Nasal Cannula 2 08/03/22 22:30 Nasal Cannula 2
[2022-08-04] MEDS ORDERED: lisinopril 10 MG TAB PO ONE (10:30)
[2022-08-04] MEDS: hydroCHLOROthiazide 25 MG TAB PO SCH (11:10)
[2022-08-04] MEDS: SPIRONOLACTONE 12.5 MG TAB PO SCH (11:10)
[2022-08-04 13:38] LABS: HBSAG NON-REACTIVE (NON-REACTIVE); Hepatitis A Antibody IgM NON-REACTIVE (NON-REACTIVE); Hepatitis B Core Antibody IgM NON-REACTIVE (NON-REACTIVE)
--- NOTE | 2022-08-04 14:25 | Hospitalist Progress Note ---
Date of Service August 04, 2022 Assessment & Plan (1) Congestive heart failure due to hypertension: Plan: Hypertensive Urgency Likely has longstanding uncontrolled HTN Continue carvedilol, hydralazine, lisinopril, HCTZ, Aldactone Weaned off of nicardipine drip Appreciate restaurant operations manager help BP better Intracranial hemorrhage Hemorrhagic stroke Secondary to above -CT head:Hyperdensities in the right cerebellum and ludwig are concerning for intracranial hemorrhage in this patient with a hypertensive crisis. -Patient refuses to get MRI adamantly despite explaining the risks and complications -Also offered to be transferred to tertiary care facility given need for neurosurgical evaluation, but patient refuses the same and prefers no invasive procedures. -Avoid anticoagulants Appreciate neurology input Neuro checks Repeat CT today: No change in hyperdense focus within the ludwig. Slight decrease of hyperdense focus in the right cerebellar hemisphere Plan to get CT angio of head and neck tomorrow Nonischemic cardiomyopathy Pulmonary hypertension Volume overload--multifactorial: Cirrhosis, hypertensive urgency, nonischemic cardiomyopathy Acute systolic/diastolic heart failure --ECHO: Severe concentric LVH, mildly reduced LV systolic function with mild global hypokinesis, EF 45 to 50%, grade 2 diastolic dysfunction, left atrium is mildly dilated, right atrium is moderately dilated, aortic valve sclerosis moderate, without significant aortic valvular stenosis, mitral valve leaflets appear thickened but not open, mild mitral annular calcification, mild mitral regurgitation, mild tricuspid regurgitation, significant pulmonary hypertension with PA systolic pressure of 61 mmHg assuming a right atrial pressure of 8 mm history. --CT ABD showed Atherosclerotic calcifications -- Continue metoprolol, lisinopril Check lipid panel --Appreciate Cardiology Input On IV Lasix 40mg BID Monitor I's and O's, daily weight -Will likely need cardiac MRI eventually Started on HCTZ, Aldactone Monitor volume status DM II New Diagnosis HbA1c 7.4 Not on any meds ISS, basal Insulin, Accu checks, Diabetic diet Pharmacy Glycemic control consult primary special educator consulted as well Elevated D-dimer -CTA: No pulmonary emboli identified. -Venous Doppler:No evidence of deep venous thrombus within the bilateral lower extremities. Minimal superficial thrombus within the bilateral greater saphenous veins. This finding will be called/faxed to ordering provider at time of dictation. -- May need repeat venous Doppler to monitor for progression Cirrhosis with Ascites Hepatic steatosis Past alcohol abuse Acute hepatitis panel, other serological testing pending --CT ABD:Cirrhotic contour of the liver with numerous enhancing small nodules. If not previously evaluated, MRI liver mass protocol is recommended. Umbilical hernia containing fat and fluid. Bilateral pleural effusions and small volume ascites. --ABD USD:Small volume of abdominal ascites, predominantly within a perihepatic distribution. Low-sodium diet Continue diuretics as above Appreciate GI input Will need outpatient EGD to rule out varices Ongoing tobacco abuse Psoriasis- as per records Chest Pain Coordinator to quit smoking Morbid Obesity BMI: 42 Chest Pain Coordinator Lifestyle changes DVT Px: SCDs Re: Intracranial hemorrhage Code Status Full Code Admission and Anticipated Discharge Date Admission Date: August 03, 2022 Subjective Patient is seen and examined at bedside States feeling well today Leg swelling improving No new complaints Discussed with neurology, restaurant operations manager Plan to be transferred out of ICU Denies any chest pain, shortness of breath, dizziness, abdominal pain, headache, change in vision, focal weakness Family at bedside Review of Systems Review of Systems: All systems reviewed & are unremarkable except as noted in Subjective Physical Exam Physical Exam: Physical Exam: Vitals signs as noted above General Appearance:Morbidly Obese, no apparent distress Head: normocephalic, Atraumatic Eyes: normal inspection, EOMI Neck: supple, Trachea midline Respiratory/Chest: Decreased breath sounds, CTA, No accessory muscle use Cardiovascular: S1, S2, No murmur Abdomen/GI:Soft, Non tender, mildly distended, Bowel sounds present Extremities/Musculoskeletal:normal inspection, 2+ B/L LE edema Neurologic/Psych:AAOX3, grossly no focal neurological deficits Skin: normal color, warm Results & Data Results & Data ([facility]) Vital Signs (Past 12 Hours) Vital Signs Temp Pulse Resp BP Pulse Ox Pulse Ox O2 Del Method 08/04/22 14:00 64 22 143/91 H 97 Nasal Cannula 08/04/22 13:00 63 19 96 08/04/22 13:00 140/83 08/04/22 12:00 68 24 93 08/04/22 12:00 137/87 08/04/22 08:00 92 08/04/22 11:00 64 21 95 08/04/22 11:00 141/89 H 08/04/22 10:59 150/87 H 08/04/22 10:59 68 26 H 96 08/04/22 10:00 116/79 08/04/22 07:30 Nasal Cannula 08/04/22 10:00 64 22 95 08/04/22 09:11 166/97 H 08/04/22 09:11 76 24 96 08/04/22 09:09 75 18 96 08/04/22 08:00 75 24 92 Nasal Cannula 08/04/22 08:00 152/89 H 08/04/22 08:00 80 08/04/22 07:45 165/91 H 08/04/22 07:45 78 22 95 08/04/22 07:00 72 22 95 08/04/22 07:00 152/90 H 08/04/22 06:00 133/82 08/04/22 07:51 37.2 C 08/04/22 06:00 67 17 133/82 94 Nasal Cannula 08/04/22 05:00 67 18 131/83 93 Nasal Cannula 08/04/22 04:00 37 C 65 18 141/81 H 92 Nasal Cannula 08/04/22 03:00 80 22 144/75 H 92 Nasal Cannula O2 Del Method O2 Flow Rate O2 Flow Rate 08/04/22 14:00 2 08/04/22 13:00 08/04/22 13:00 08/04/22 12:00 08/04/22 12:00 08/04/22 08:00 Nasal Cannula 2 08/04/22 11:00 08/04/22 11:00 08/04/22 10:59 08/04/22 10:59 08/04/22 10:00 08/04/22 07:30 2 08/04/22 10:00 08/04/22 09:11 08/04/22 09:11 08/04/22 09:09 08/04/22 08:00 2 08/04/22 08:00 08/04/22 08:00 08/04/22 07:45 08/04/22 07:45 08/04/22 07:00 08/04/22 07:00 08/04/22 06:00 08/04/22 07:51 08/04/22 06:00 3 08/04/22 05:00 3 08/04/22 04:00 3 08/04/22 03:00 3 Laboratory Results Short CBC 08/04/22 Range/Units 04:38 WBC 7.71 (4.8-10.8) K/ul Hgb 15.0 (14.0-18.0) g/dl Hct 46.9 (40.1-51.0) % Plt Count 212 (130-400) K/uL BMP 08/04/22 04:38 Sodium 140 Potassium 3.3 L Chloride 96 L Carbon Dioxide 37 H BUN 16 Creatinine 1.13 Glucose 115 H Calcium 7.7 L
[2022-08-04] MEDS: ATORVASTATIN 10 MG TAB PO SCH (21:13)
[2022-08-05 07:00] LABS: Albumin Globulin Ratio 0.8 (0.9-2); BUN Creatinine Ratio 15.7 (10-20); Bilirubin,Total 1.8 mg/dl (0.2-1.0); Calcium 8.1 mg/dl (8.5-10.1); Creatinine Clr Calc Pharmacy 99.8 ml/min; Est GFR (African American) 94.2 ml/min; Est GFR (Non-African American) 81.3 ml/min; Globulin 3.9 gm/dl (2.5-4.0); Magnesium 1.8 mg/dl (1.7-2.4); Potassium 3.4 mmol/L (3.5-5.1); Total Protein 6.9 gm/dl (6.0-8.3)
[2022-08-05 07:05] LABS: Hemoglobin 15.2 g/dl (14.0-18.0); Mean Corpuscular Hemoglobin 29.1 pg (25.0-34.0); Mean Corpuscular Hgb Conc 32.3 g/dL (32.0-36.0); Mean Platelet Volume 13.4 fL (9.4-12.4); Platelet Count 214 K/uL (130-400); RDW Standard Deviation 45.6 fL (36.4-46.3); Red Blood Count 5.22 M/uL (4.63-6.08); White Blood Count 7.34 K/ul (4.8-10.8)
[2022-08-05] MEDS ORDERED: MAGNESIUM SULFATE / D5W 1 GM/100 ML BAG IV ONE (07:21)
[2022-08-05] MEDS ORDERED: POTASSIUM CHLORIDE CRTAB 20 MEQ TABCR PO STA (07:21)
[2022-08-05] MEDS: hydrALAZINE HCL 25 MG TAB PO SCH ×3 (07:37→20:14)
[2022-08-05] MEDS: lisinopril 40 MG TAB PO SCH (07:37)
[2022-08-05] MEDS: SPIRONOLACTONE 12.5 MG TAB PO SCH (07:37)
[2022-08-05] MEDS: carvediloL 6.25 MG TAB PO SCH ×2 (07:38→20:14)
[2022-08-05] MEDS: hydroCHLOROthiazide 25 MG TAB PO SCH (07:38)
[2022-08-05] MEDS: FUROSEMIDE 40 MG/4 ML VIAL IV SCH ×2 (07:38→17:23)
[2022-08-05] MEDS: POTASSIUM CHLORIDE / WTR 10 MEQ/100 ML PLCT IV SCH ×2 (07:53→09:15)
[2022-08-05] MEDS: INSULIN ASPART PER UNIT SC SCH ×4 (07:54→20:39)
--- NOTE | 2022-08-05 08:17 | Neurology Progress Note ---
Date of Service August 05, 2022 Assessment & Plan (1) Intracerebral hemorrhage: (2) Stroke: (3) Hypertensive urgency: (4) Congestive heart failure due to hypertension: (5) Diabetes: Plan This patient has 2 significant intercerebral hemorrhages seen on CT scan including the right cerebellar hemisphere and midline ludwig (Or perhaps the roof of the 4th ventricle instead of the ludwig). CT scan of the head August 04, showed stability and perhaps slight improvement in these hemorrhages compared to August 03. 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 His blood pressure was extraordinarily high on admission and resulted in congestive heart failure. He does have elevated hemoglobin A1c. He was not on any medication including blood thinners, prior to admission. More recently blood pressure has been better controlled. On exam, he does not have any specific focal neurologic findings or deficits, meningeal signs, or encephalopathy. August 04, I wondered about some subtle ataxia of the right upper extremity, however, this is present today. Overall, he is improved clinically and his blood pressure and glucose are improved. Recommendations: 1. Control blood pressure as you are doing, aiming for a mean arterial pressure of approximately 100. 2. Control glucose, aiming to lower the hemoglobin A1c less than 7. 3. continue atorvastatin at current dose. 4. CT angiography of the head and neck Today or tomorrow. This will also assess the hemorrhages as well. 5. Discontinue all cigarette smoking and chewing tobacco. 6. discontinue alcohol . 8. I reached out to case management (Rose Wilkes) - she will help arrange a primary care physician for this patient Overall, I spent a total of 35 minutes with this case including review of records, direct evaluation the patient at bedside, and discussion of the case with the patient and RN at bedside, Dr. Rowan, and Dr. Vaughn, including differential diagnosis and treatment options. Admission and Anticipated Discharge Date Admission Date: August 03, 2022 Subjective Patient feels "much better" this morning. He feels alert and has no pain or headache. He has no dizziness, weakness, numbness, or clumsiness. His vision is unremarkable. Blood pressure is 190/108 this morning (and this was just prior to getting his morning antihypertensive medication. Otherwise nursing reports no significant issues overnight. CBC was unremarkable this morning. Chem profile showed elevated total bilirubin, with normal liver enzymes. The official interpretation of yesterday CT scan of the head showed no change in the 1.7 cm hyperdense focus in the ludwig and a slight decrease in size of the right cerebellar hemisphere lesion. Results & Data ([facility]) Vital Signs (Past 12 Hours) Vital Signs Temp Pulse Pulse Resp BP BP Pulse Ox 08/05/22 07:34 36.7 C 71 24 190/108 H 96 08/05/22 05:00 69 24 94 08/05/22 05:00 164/92 H 08/05/22 04:00 70 20 91 08/05/22 04:00 36.6 C 144/95 H 08/05/22 02:00 72 25 H 95 08/05/22 02:00 151/95 H 08/05/22 00:00 70 23 94 08/05/22 00:00 36.6 C 137/72 08/05/22 00:00 68 08/04/22 22:00 68 22 93 08/04/22 22:00 151/92 H 08/04/22 21:00 66 25 H 96 08/04/22 21:00 169/92 H O2 Del Method O2 Flow Rate 08/05/22 07:34 Nasal Cannula 1 08/05/22 05:00 08/05/22 05:00 08/05/22 04:00 08/05/22 04:00 08/05/22 02:00 08/05/22 02:00 08/05/22 00:00 08/05/22 00:00 08/05/22 00:00 08/04/22 22:00 08/04/22 22:00 08/04/22 21:00 08/04/22 21:00 Exam (Neuro) Physical Exam: He is awake and alert. Speech is without aphasia or dysarthria. Mood and affect are normal appropriate. Thought processes are intact with good long and short-term memory. Extraocular eye muscles are intact without nystagmus. There is no facial droop. Tongue is midline. Coordination is normal in the arms without tremor or ataxia. Strength is symmetrical in all 4 limbs. There are no abnormal involuntary movements. Tone is normal in all limbs. Stance is normal sitting up in bed. PG Care Time/CCT Total # of Minutes Spent Total Time Spent with Patient: Total time spent is greater than 50% in coordination of care (as documented) at patient's floor/unit and/or counseling patient: Coding Level of Care Code 37033 Subseq Hosp Care Lvl 3 Diagnoses Intracerebral hemorrhage I61.9 Stroke I63.9 Hypertensive urgency I16.0 Congestive heart failure due to hypertension I11.0 Diabetes E11.9 Time Spent (min) 35
[2022-08-05] MEDS ORDERED: carvediloL 12.5 MG TAB PO SCH (09:00)
--- NOTE | 2022-08-05 09:56 | Cardiology Progress Note ---
Date of Service August 05, 2022 Assessment & Plan (1) Hypertensive urgency: Plan: The pathophysiology and medical consequences of longstanding uncontrolled hypertension were discussed with the patient and his at great lengths again today. Head CT reviewed, pt refusing MRI BP significantly improved after medication changes were made yesterday. Elevated this morning before receiving morning meds. Recommend continuing current doses of carvedilol, spironolactone, lisinopril, hydralazine and hydrochlorothiazide We will start terazosin this p.m. with hopes of being able to wean off hydralazine, I doubt he will be able to comply with the 3 times daily medication schedule (2) NICM (nonischemic cardiomyopathy): Plan: No signs of acute coronary syndrome. EKG reveals left anterior fascicular block Severe concentric LVH on echocardiogram, most likely hypertensive in nature but will require outpatient cardiac MRI to rule out infiltrative disease as well GDMT initiated Is now 9 L negative Continues to diurese Renal function remained stable Continue IV Lasix for now and will follow volume status clinically Follow and replete electrolytes as necessary (3) CAD (coronary artery disease): Plan: CT of the chest personally reviewed shows coronary artery calcifications present in both the left and right coronary artery distributions No clinical criteria for acute coronary syndrome is present May consider stress cardiac MRI to be completed in [place] in the future will start atorvastatin 40mg po daily as well hold off on asa given hemorrhagic head CT findings (4) Pulmonary hypertension: Plan: Started on Lasix 40 mg IV twice daily We will continue to follow clinically (5) Morbid obesity: (6) Mitral regurgitation: Admission and Anticipated Discharge Date Admission Date: August 03, 2022 Subjective Pt seen and examined. Chart reviewed. Telemetry reviewed. Review of Systems Review of Systems: All systems reviewed & are unremarkable except as noted in HPI & below Physical Exam Physical Exam: General: Awake, alert and oriented x 3. No acute distress. HEENT: Normocephalic, atraumatic. Pupils equal, round and reactive to light and accommodation. Extraocular muscles are intact. Anicteric sclera. Moist mucous membranes. Neck: No JVD. No bruit. Cardiovascular: Regular. Positive S-4. Normal S-1 and S-2. No S-3. No murmurs or rubs. Pulmonary: Clear to auscultation B/L. No rales, rhonchi or wheezing Abdomen: Bowel sounds x 4, distended. No rebound, guarding or tenderness. No organomegaly. Extremities: No clubbing, cyanosis. +2 bilateral lower extremity pitting edema. +2 pedal pulses bilaterally. Skin: Warm and dry. Results & Data ([facility]) Vital Signs (Past 12 Hours) Vital Signs Temp Pulse Pulse Resp BP BP Pulse Ox 08/05/22 08:00 08/05/22 07:34 36.7 C 71 24 190/108 H 96 08/05/22 05:00 69 24 94 08/05/22 05:00 164/92 H 08/05/22 04:00 70 20 91 08/05/22 04:00 36.6 C 144/95 H 08/05/22 02:00 72 25 H 95 08/05/22 02:00 151/95 H 08/05/22 00:00 70 23 94 08/05/22 00:00 36.6 C 137/72 08/05/22 00:00 68 08/04/22 22:00 68 22 93 08/04/22 22:00 151/92 H O2 Del Method O2 Flow Rate 08/05/22 08:00 Room Air 08/05/22 07:34 Nasal Cannula 1 08/05/22 05:00 08/05/22 05:00 08/05/22 04:00 08/05/22 04:00 08/05/22 02:00 08/05/22 02:00 08/05/22 00:00 08/05/22 00:00 08/05/22 00:00 08/04/22 22:00 08/04/22 22:00
--- NOTE | 2022-08-05 15:27 | Hospitalist Progress Note ---
Date of Service August 05, 2022 Assessment & Plan (1) Congestive heart failure due to hypertension: Plan: Intracranial hemorrhage Hemorrhagic stroke - likely in the setting of long standing untreated hypertension - CT head:Hyperdensities in the right cerebellum and ludwig are concerning for intracranial hemorrhage in this patient with a hypertensive crisis. - Patient refuses to get MRI adamantly despite explaining the risks and complications - Also offered to be transferred to tertiary care facility given need for neurosurgical evaluation, but patient refuses the same and prefers no invasive procedures. - Avoid anticoagulants - Appreciate neurology input - Neuro checks - Repeat CT 08/04/2022: No change in hyperdense focus within the ludwig. Slight decrease of hyperdense focus in the right cerebellar hemisphere - Plan to get CT angio of head and neck 08/06/2022 per neurology Nonischemic cardiomyopathy Pulmonary hypertension Volume overload--multifactorial: Cirrhosis, hypertensive urgency, nonischemic cardiomyopathy Acute systolic/diastolic heart failure --ECHO: Severe concentric LVH, mildly reduced LV systolic function with mild global hypokinesis, EF 45 to 50%, grade 2 diastolic dysfunction, left atrium is mildly dilated, right atrium is moderately dilated, aortic valve sclerosis moderate, without significant aortic valvular stenosis, mitral valve leaflets appear thickened but not open, mild mitral annular calcification, mild mitral regurgitation, mild tricuspid regurgitation, significant pulmonary hypertension with PA systolic pressure of 61 mmHg assuming a right atrial pressure of 8 mm history. --CT ABD showed Atherosclerotic calcifications -- Continue metoprolol, lisinopril --Appreciate Cardiology Input On IV Lasix 40mg BID - continue for now, follow clinically Monitor I's and O's, daily weight -Will likely need cardiac MRI eventually Started on HCTZ, Aldactone Monitor volume status HTN - presented with severely elevated BPs - CHF likely due to long standing untreated hypertension - continue BP meds per cardiology DM II New Diagnosis HbA1c 7.4 Not on any meds ISS, basal Insulin, Accu checks, Diabetic diet Pharmacy Glycemic control consult school vocational educator consulted as well - will discharge with WellMetris glucometer, test strips, lancets 33g for daily monitoring - will discharge on metformin 500mg BID and follow up with PCP Elevated D-dimer -CTA: No pulmonary emboli identified. -Venous Doppler:No evidence of deep venous thrombus within the bilateral lower extremities. Minimal superficial thrombus within the bilateral greater saphenous veins. - will get repeat imaging in 2 weeks with PCP Hepatic steatosis Past alcohol use disorder Acute hepatitis panel, other serological testing --CT ABD:Cirrhotic contour of the liver with numerous enhancing small nodules. If not previously evaluated, MRI liver mass protocol is recommended. Umbilical hernia containing fat and fluid. Bilateral pleural effusions and small volume ascites. --ABD USD:Small volume of abdominal ascites, predominantly within a perihepatic distribution. Low-sodium diet Continue diuretics as above Appreciate GI input Will need outpatient EGD to rule out varices Ongoing tobacco abuse Psoriasis- as per records Gyroscope Technician to quit smoking Morbid Obesity BMI: 42 Gyroscope Technician Lifestyle changes DVT Px: SCDs Re: Intracranial hemorrhage Code Status Full Code Admission and Anticipated Discharge Date Admission Date: August 03, 2022 Subjective Patient with DM2, HFrEF (EF 45% 07/2022), HTN who presented with likely CHF exacerbation in the setting of long standing untreated hypertension. TTE showed EF 45%, started on IV lasix with Cardiology, also started on GDMT. Found to have lesion in ludwig on CTH concerning for hypertensive hemorrhage, neurology consulted. Patient remained neurologically stable without focal deficits. Patient reports feeling better since admission and motivation to improve his health by making necessary lifestyle changes as well as being compliant with medications. He denies chest pain, shortness of breath, n/v/d, abdominal pain, dysuria, palpitations, cough, fever or chills. He reports swelling in his abdomen and legs are improved. Review of Systems Review of Systems: As per HPI, all other systems reviewed and negative Physical Exam Physical Exam: General Appearance:Morbidly Obese, no apparent distress Head: normocephalic, Atraumatic Eyes: normal inspection, EOMI Neck: supple, Trachea midline Respiratory/Chest: Decreased breath sounds, CTA, No accessory muscle use Cardiovascular: S1, S2, No murmur Abdomen/GI:Soft, Non tender, obese abdomen, Bowel sounds present Extremities/Musculoskeletal:normal inspection, 2+ B/L LE edema to midshin Neurologic/Psych:AAOX3, grossly no focal neurological deficits Skin: normal color, warm Results & Data Results & Data ([facility]) Vital Signs (Past 12 Hours) Vital Signs Temp Pulse Pulse Resp BP BP Pulse Ox 08/05/22 11:34 36.5 C 71 14 130/106 H 94 08/05/22 08:00 71 08/05/22 08:00 08/05/22 07:34 36.7 C 71 24 190/108 H 96 08/05/22 05:00 69 24 94 08/05/22 05:00 164/92 H 08/05/22 04:00 70 20 91 08/05/22 04:00 36.6 C 144/95 H O2 Del Method O2 Flow Rate 08/05/22 11:34 Room Air 08/05/22 08:00 08/05/22 08:00 Room Air 08/05/22 07:34 Nasal Cannula 1 08/05/22 05:00 08/05/22 05:00 08/05/22 04:00 08/05/22 04:00 Diagnostic Findings Laboratory Results WBC 7.34 K/ul (4.8-10.8) 08/05/22 05:47 RBC 5.22 M/uL (4.63-6.08) 08/05/22 05:47 Hgb 15.2 g/dl (14.0-18.0) 08/05/22 05:47 Hct 47.0 % (40.1-51.0) 08/05/22 05:47 MCV 90.0 fL (80.0-100.0) 08/05/22 05:47 MCH 29.1 pg (25.0-34.0) 08/05/22 05:47 MCHC 32.3 g/dL (32.0-36.0) 08/05/22 05:47 RDW Std Deviation 45.6 fL (36.4-46.3) 08/05/22 05:47 RDW Coeff of Nain 14.0 % (11.5-14.5) 08/05/22 05:47 Plt Count 214 K/uL (130-400) 08/05/22 05:47 MPV 13.4 fL (9.4-12.4) H 08/05/22 05:47 Immature Gran % (Auto) 0.3 % 08/03/22 08:14 Neut % (Auto) 72.3 % 08/03/22 08:14 Lymph % (Auto) 16.4 % 08/03/22 08:14 [place] % (Auto) 9.3 % 08/03/22 08:14 Eos % (Auto) 1.3 % 08/03/22 08:14 Baso % (Auto) 0.4 % 08/03/22 08:14 Neut # (Auto) 5.61 K/uL (1.4-6.5) 08/03/22 08:14 Lymph # (Auto) 1.27 K/uL (1.2-3.4) 08/03/22 08:14 [place] # (Auto) 0.72 K/uL (0.24-0.82) 08/03/22 08:14 Eos # (Auto) 0.10 K/uL (0-0.50) 08/03/22 08:14 Baso # (Auto) 0.03 K/uL (0-0.2) 08/03/22 08:14 Immature Gran # (Auto) 0.02 K/uL (0.00-0.02) 08/03/22 08:14 PT 13.3 Seconds (9.0-12.0) H 08/03/22 00:21 INR 1.3 (0.9-1.1) H 08/03/22 00:21 APTT 30.8 Seconds (21.0-31.0) 08/03/22 00:21 PTT Ratio 1.1 08/03/22 00:21 D-Dimer 1150 ug/L FEU (0-500) H* 08/02/22 22:31 Sodium 138 mmol/L (136-145) 08/05/22 05:47 Potassium 3.4 mmol/L (3.5-5.1) L 08/05/22 05:47 Chloride 92 mmol/L (98-107) L 08/05/22 05:47 Carbon Dioxide 39 mmol/L (21-32) H 08/05/22 05:47 Anion Gap 7 (3-11) 08/05/22 05:47 BUN 17 mg/dl (6-23) 08/05/22 05:47 Creatinine 1.08 mg/dl (0.6-1.4) 08/05/22 05:47 Est Cr Clr Drug Dosing 99.8 ml/min 08/05/22 05:47 Est GFR ( Amer) 94.2 ml/min 08/05/22 05:47 Est GFR (Non-Af Amer) 81.3 ml/min 08/05/22 05:47 BUN/Creatinine Ratio 15.7 (10-20) 08/05/22 05:47 Glucose 108 mg/dl (70-99(Fasting)) H 08/05/22 05:47 POC Glucose 109 mg/dl (70-99) H 08/05/22 11:00 Estimat Average Glucose 166 mg/dl 08/02/22 19:18 Hemoglobin A1c 7.4 % (4.5-5.6) H 08/02/22 19:18 Calcium 8.1 mg/dl (8.5-10.1) L 08/05/22 05:47 Phosphorus 6.0 mg/dl (2.5-4.9) H 08/04/22 04:38 Magnesium 1.8 mg/dl (1.7-2.4) 08/05/22 05:47 Iron 53 mcg/dl (35-175) 08/03/22 08:14 Ferritin 86.6 ng/ml (8-388) 08/03/22 08:14 Total Bilirubin 1.8 mg/dl (0.2-1.0) H 08/05/22 05:47 Direct Bilirubin 0.4 mg/dl (0-0.2) H 08/03/22 08:14 AST 17 U/L (13-39) 08/05/22 05:47 ALT 13 U/L (7-52) 08/05/22 05:47 Alkaline Phosphatase 63 U/L (34-104) 08/05/22 05:47 Troponin I High Sens 40.0 pg/ml (0-20) H 08/03/22 08:14 B-Natriuretic Peptide 994 pg/ml (0-100) H 08/02/22 22:31 Total Protein 6.9 gm/dl (6.0-8.3) 08/05/22 05:47 Albumin 3.0 gm/dl (3.4-5.0) L 08/05/22 05:47 Globulin 3.9 gm/dl (2.5-4.0) 08/05/22 05:47 Albumin/Globulin Ratio 0.8 (0.9-2) L 08/05/22 05:47 Triglycerides 109 mg/dl (0-150) 08/04/22 04:38 Cholesterol 210 mg/dl (0-200) H 08/04/22 04:38 LDL Cholesterol, Calc 156 mg/dl 08/04/22 04:38 VLDL Cholesterol, Calc 22 mg/dl (0-30) 08/04/22 04:38 HDL Cholesterol 32 mg/dl 08/04/22 04:38 Cholesterol/HDL Ratio 6.6 (0-5) H 08/04/22 04:38 Lipase 22 U/L (11-82) 08/02/22 19:18 Tumor Marker AFP 5.6 ng/mL (<6.1) 08/03/22 08:14 TSH 2.380 uIu/ml (0.300-4.500) 08/02/22 19:18 Urine Color Dark Yellow 08/02/22 19:24 Urine Appearance Clear (Clear) 08/02/22 19:24 Urine pH 5.5 (4.5-7.5) 08/02/22 19:24 Ur Specific [place] 1.028 (1.000-1.030) 08/02/22 19:24 Urine Protein 4+ (Negative) H 08/02/22 19:24 Urine Glucose (UA) Negative (Negative) 08/02/22 19:24 Urine Ketones Trace (Negative) H 08/02/22 19:24 Urine Blood 2+ (Negative) H 08/02/22 19:24 Urine Nitrite Negative (Negative) 08/02/22 19:24 Urine Bilirubin 1+ (Negative) H 08/02/22 19:24 Urine Urobilinogen Negative (Negative) 08/02/22 19:24 Ur Leukocyte Esterase Negative (Negative) 08/02/22 19:24 Urine WBC (Auto) 1-5 /hpf (0-5) 08/02/22 19:24 Urine RBC (Auto) 5-10 /hpf (0-4) H 08/02/22 19:24 U Hyaline Cast (Auto) >30 /lpf (0-5) H 08/02/22 19:24 U Epithel Cells (Auto) 5-10 /lpf (0-5) H 08/02/22 19:24 Urine Bacteria (Auto) Negative (Negative) 08/02/22 19:24 Ur Renal Epithelial Cell Not Reportable 08/02/22 19:24 Granular Casts 1-5 /lpf (0) H 08/02/22 19:24 Nasal Screen MRSA (PCR) Negative (Negative) 08/03/22 06:15 Urine Opiates Screen Neg (Neg) 08/03/22 07:25 Ur Methadone, Qual Neg (Neg) 08/03/22 07:25 Urine Barbiturates Neg (Neg) 08/03/22 07:25 Ur Phencyclidine (PCP) Neg (Neg) 08/03/22 07:25 U Amphetamin/Meth Scrn Neg (Neg) 08/03/22 07:25 MDMA (Ecstasy) Screen Neg (Neg) 08/03/22 07:25 U Benzodiazepines Scrn Neg (Neg) 08/03/22 07:25 Ur Cocaine Metabolite Neg (Neg) 08/03/22 07:25 U Marijuana (THC) Screen Neg (Neg) 08/03/22 07:25 Ethyl Alcohol mg/dL < 10.0 mg/dl (<10.0) 08/03/22 05:32 Hepatitis A IgM Ab NON-REACTIVE (NON-REACTIVE) 08/03/22 08:14 Hep Bs Antigen NON-REACTIVE (NON-REACTIVE) 08/03/22 08:14 Hep Bs Ag Confirmation TNP 08/03/22 08:14 Hep B Core IgM Ab NON-REACTIVE (NON-REACTIVE) 08/03/22 08:14 Hepatitis C Ab (EIA) NON-REACTIVE (NON-REACTIVE) 08/03/22 08:14 Hep C Ab Signal/Cutoff <0.02 (<1.00) 08/03/22 08:14 SARS-CoV-2, RNA, NAAT NEGATIVE (NEGATIVE) 08/03/22 03:10 First/Repeat Specimen Cancelled 08/03/22 08:14 Gestational Age Cancelled 08/03/22 08:14 Estimated Delivery Date Cancelled 08/03/22 08:14 Est Date Determined By Cancelled 08/03/22 08:14 Maternal Race Cancelled 08/03/22 08:14 Maternal Weight Cancelled 08/03/22 08:14 Maternal Diabetes Cancelled 08/03/22 08:14 Number of Fetuses Cancelled 08/03/22 08:14 Maternal Scrn Egg Donor Cancelled 08/03/22 08:14 Donor Age or Cancelled 08/03/22 08:14 AFP Triple Screen Cancelled 08/03/22 08:14 Prev Trisomy 21 Preg Cancelled 08/03/22 08:14 Maternal Serum AFP Cancelled 08/03/22 08:14 AFP MoM Cancelled 08/03/22 08:14 Maternal AFP Interp Cancelled 08/03/22 08:14 Family History NTD Cancelled 08/03/22 08:14 NTD Risk Assessment Cancelled 08/03/22 08:14 Maternal Scrn Comment Cancelled 08/03/22 08:14 Impressions Abdomen/Pelvis CT 08/02/22 21:53 CT abd pelvis IV con only CLINICAL HISTORY: abdominal pain, umbilical hernia TECHNIQUE: Helical axial images of the abdomen and pelvis were obtained and displayed. Automated dose lowering techniques and/or adjustment according to patient size were utilized for this exam. This exam was performed with intraven ous contrast. COMPARISON: None available at the time of this dictation. FINDINGS: Lower chest: Mild right and trace left pleural effusions noted. There is associated atelectasis. Liver: Nodular contour of the liver is seen compatible with cirrhosis. Numerous small enhancing lesions are seen. Gallbladder and biliary tree: Pericholecystic fluid is seen without emy wall thickening. No intra- or extrahepatic biliary ductal dilation. Pancreas: Unremarkable, no focal lesions. Spleen: Unremarkable. Adrenals: Unremarkable. Kidneys and ureters: Exophytic cyst measuring 12 mm is seen in the left kidney. Bladder: Unremarkable. Reproductive organs: Unremarkable. Bowel: Unremarkable appearance of the bowel. The appendix is normal. Lymph nodes Retroperitoneal: Unremarkable. Pelvic: Prominent subcentimeter inguinal nodes are noted. Mesenteric: Unremarkable. Peritoneum: Trace abdominal fluid is seen. Vessels: Atherosclerotic calcifications are seen. A few varices are noted in the body wall. Abdominal wall: An umbilical hernia is seen containing fat and fluid. Body wall edema is noted. Bones: Degenerative changes in the visualized spine. IMPRESSION: 1. Cirrhotic contour of the liver with numerous enhancing small nodules. If not previously evaluated, MRI liver mass protocol is recommended. 2. Umbilical hernia containing fat and fluid. 3. Bilateral pleural effusions and small volume ascites. ACT 112: Negative or not required by law. Electronically signed by: Marquise Hwang M.D. 08/03/2022 9:58 AM Chest X-Ray 08/02/22 21:53 XR chest 1V portable CLINICAL HISTORY: Shortness of breath. COMPARISON STUDY: None. FINDINGS: Moderate cardiomegaly is noted. There is pulmonary vascular congestion with small bilateral pleural effusions. There is no pneumothorax. IMPRESSION: Cardiomegaly. Pulmonary vascular congestion with small bilateral pleural effusions. ACT 112: Negative or not required by law. Electronically signed by: Anastacio Gonzales M.D. 08/03/2022 11:07 AM Chest CTA 08/02/22 23:35 CT ANGIOGRAPHY OF THE CHEST, PULMONARY EMBOLUS PROTOCOL CLINICAL HISTORY: Shortness of breath. Evaluate for pulmonary embolus. COMPARISON STUDY: Chest radiograph performed earlier today. TECHNIQUE: Following IV administration of 117 mL of Optiray, helical axial images of the chest were obtained utilizing the pulmonary embolus protocol. Maximal intensity projections and sagittal and coronal reformats were viewed on an independent 3D workstation. IV contrast was administered without complication. Automated exposure control was utilized for the study. A dose lowering technique was utilized adhering to the principles of ALARA. CT DOSE: 2329.08 mGy.cm FINDINGS: No pulmonary emboli are identified. Moderate cardiomegaly is noted. There is no pericardial effusion. There is aortic valvular calcification. Small to moderate right and small left pleural effusions are noted. Subpleural opacities within the lower lungs favor atelectasis. There is no consolidation to suggest pneumonia. There is mild interlobular septal thickening. No thoracic lymphadenopathy is present. Abdomen and pelvis will be reported separately. Upper abdominal ascites is noted. There is hepatic steatosis with suspected cirrhosis. Numerous hypervascular hepatic foci are noted on the CT of the abdomen and pelvis. These are not well visualized on this exam. IMPRESSION: 1. No pulmonary emboli identified. 2. Cardiomegaly. Small to moderate right and small left pleural effusions. Possible interstitial mild pulmonary edema. 3. Hepatic steatosis and suspected cirrhosis. Numerous hypervascular hepatic foci/lesions are better depicted on the CT of the abdomen or pelvis. These are indeterminate. Nonemergent liver protocol MRI is recommended. ACT 112: Negative or not required by law. Electronically signed by: Anastacio Gonzales M.D. 08/03/2022 9:00 AM Venous Doppler Study 08/02/22 23:35 BILATERAL LOWER EXTREMITY VENOUS DOPPLER CLINICAL HISTORY: leg swelling, elevated D-dimer COMPARISON STUDY: No previous studies for comparison. TECHNIQUE: Sonography of the deep venous system of the bilateral lower extremities was performed. Compression and augmentation were evaluated. FINDINGS: The bilateral common femoral, superficial femoral and popliteal veins were compressible. Augmentation was normal. Flow was shown within the deep calf vessels. There is minimal superficial thrombus adherent to the islas of the b ilateral greater saphenous veins. The focus within the left greater saphenous vein measures 1 cm in extent. IMPRESSION: 1. No evidence of deep venous thrombus within the bilateral lower extremities. 2. Minimal superficial thrombus within the bilateral greater saphenous veins. This finding will be called/faxed to ordering provider at time of dictation. ACT 112: Negative or not required by law. Electronically signed by: Anastacio Gonzales M.D. 08/03/2022 7:51 AM Abdomen Ultrasound 08/03/22 13:40 US abdomen limited HISTORY: 46 years-old Male ascites (enough for tap?), hepatic lesions abdominal ascites with numerous hepatic lesions COMPARISON: CT abdomen and pelvis of same day TECHNIQUE: Multiple real-time sonographic images of the abdomen assessing for ascitic fluid were obtained assessing grayscale appearance FINDINGS: Heterogeneous appearance of the liver. The previously noted hepatic lesions are not identified by ultrasound. There is only a small amount of abdominal ascites noted, predominantly within a perihepatic distribution. IMPRESSION: Small volume of abdominal ascites, predominantly within a perihepatic distribution. ACT 112: Negative or not required by law. The above report was generated using voice recognition software. It may contain grammatical, syntax or spelling errors. Electronically signed by: Jj Wiley M.D. 08/03/2022 2:[address] 08/04/22 08:00 CT OF THE HEAD WITHOUT CONTRAST CLINICAL HISTORY: Intracranial hemorrhage. COMPARISON STUDY: Head CT August 03, 2022. CT DOSE: 882.80 mGycm TECHNIQUE: Helical axial images of the head were obtained without IV contrast. Automated exposure control was utilized for the study. A dose lowering t echnique was utilized adhering to the principles of ALARA. FINDINGS: A 1.7 cm hyperdense focus within the ludwig is similar to CT of August 03, 2022. There is a 1.4 cm hyperdense focus within the right cerebellar hemisphere. The density of this focus has slightly decreased. Hypodensity within left cerebellar hemisphere is noted. This may be artifactual. Ventricular system is stable. Basal cisterns are patent. Equivocal effacement of the fourth ventricle is noted. Cavum septum pellucidum is present. No additional sites of intracranial hemorrhage are present. A mucous retention cyst within the right maxillary sinus is incidentally noted. IMPRESSION: 1. No change in a 1.7 cm hyperdense focus within the ludwig. Slight decrease in attenuation of a hyperdense focus within the right cerebellar hemisphere since prior head CT. These favor foci of intracranial hemorrhage. However, imaging follow-up to ensure resolution is recommended to exclude the possibility for underlying lesions. 2. Hypodensity within the left cerebellar hemisphere. This is likely artifactual however given equivocal effacement of the fourth ventricle, this should be assessed on subsequent exams. No hydrocephalus. ACT 112: Negative or not required by law. Electronically signed by: Anastacio Gonzales M.D. 08/04/2022 10:09 AM Medications Administered Current Inpatient Medications Acetaminophen (Acetaminophen 500 Mg Tab) 500 mg PO Q6H PRN PRN Reason: pain/fever Stop: 09/02/22 06:03 Atorvastatin Calcium (Atorvastatin 10 Mg Tab) 10 mg PO HS DAPHNIE Stop: 09/03/22 20:59 Last Admin: 08/04/22 21:13 Dose: 10 mg Carvedilol (Carvedilol 6.25 Mg Tab) 6.25 mg PO BID DAPHNIE Stop: 09/04/22 20:59 Dextrose (Dextrose 50% 50 Ml Syringe) 25 - 50 ml IV UD PRN; Protocol PRN Reason: Hypoglycemia Protocol Stop: 09/02/22 08:46 Furosemide (Furosemide 40 Mg/4 Ml Vial) 40 mg IV [id number] DAPHNIE Stop: 09/02/22 08:59 Last Admin: 08/05/22 07:38 Dose: 40 mg Glucagon (Glucagon For Inj 1 Mg Vial) 1 mg SQ UD PRN; Protocol PRN Reason: Hypoglycemia Protocol Stop: 09/02/22 08:46 Glucose (Glucose 40% Gel 15 Gm Tube) 15 - 30 gm PO UD PRN; Protocol PRN Reason: Hypoglycemia Protocol Stop: 09/02/22 08:46 Glucose (Glucose 10 Tab/Tube) 4 - 8 tab PO UD PRN; Protocol PRN Reason: Hypoglycemia Treatment Stop: 09/02/22 08:46 Hydralazine HCl (Hydralazine Hcl 25 Mg Tab) 25 mg PO TID DAPHNIE Stop: 09/02/22 20:59 Last Admin: 08/05/22 13:43 Dose: 25 mg Hydrochlorothiazide (Hydrochlorothiazide 25 Mg Tab) 25 mg PO QAM DAPHNIE Stop: 09/03/22 10:14 Last Admin: 08/05/22 07:38 Dose: 25 mg Promethazine HCl 12.5 mg/ (Sodium Chloride) 50.5 mls @ 202 mls/hr IV Q6H PRN PRN Reason: Nausea And Vomiting Stop: 09/02/22 06:03 Insulin Aspart (Insulin Aspart Per Unit) 0 units SC [facility]; Protocol Stop: 09/02/22 11:29 Last Admin: 08/05/22 11:50 Dose: Not Given Lisinopril (Lisinopril 40 Mg Tab) 40 mg PO QAM [facility] Stop: 09/04/22 08:59 Last Admin: 08/05/22 07:37 Dose: 40 mg Miscellaneous (Carbohydrates For Hypoglycemia ) 15 - 30 gm PO UD PRN PRN Reason: Hypoglycemia Protocol Stop: 09/02/22 08:46 Nitroglycerin (Nitroglycerin Sl 0.4 Mg/Tab Tab) 0.4 mg SL UD PRN PRN Reason: Chest Pain Stop: 09/02/22 06:03 Spironolactone (Spironolactone 12.5 Mg Tab) 12.5 mg PO DAILY [facility] Stop: 09/03/22 10:14 Last Admin: 08/05/22 07:37 Dose: 12.5 mg Terazosin HCl (Terazosin Hcl 5 Mg Cap) 5 mg PO HS [facility] Stop: 09/04/22 20:59 Tramadol HCl (Tramadol Hcl 50 Mg Tablet) 25 - 50 mg PO Q4H PRN PRN Reason: Pain Stop: 09/02/22 06:03
[2022-08-05] MEDS: ATORVASTATIN 10 MG TAB PO SCH (20:14)
[2022-08-05] MEDS ORDERED: TERAZOSIN HCL 5 MG CAP PO SCH (21:00)
[2022-08-06 06:58] LABS: BUN Creatinine Ratio 16.1 (10-20); Calcium 8.5 mg/dl (8.5-10.1); Creatinine Clr Calc Pharmacy 91.9 ml/min; Est GFR (African American) 90.2 ml/min; Est GFR (Non-African American) 77.8 ml/min; Magnesium 1.6 mg/dl (1.7-2.4); Phosphorus 4.7 mg/dl (2.5-4.9); Potassium 3.3 mmol/L (3.5-5.1)
[2022-08-06 07:03] LABS: Albumin 2.7 g/dL (3.8-4.8); Alpha 1 Globulin 0.4 g/dL (0.2-0.3); Alpha 2 Globulin 0.8 g/dL (0.5-0.9); Beta-1-Globulin 0.4 g/dL (0.4-0.6); Beta-2-Globulin 0.5 g/dL (0.2-0.5); Gamma Globulin 1.3 g/dL (0.8-1.7); Monoclonal Protein Band 1 DNR g/dL (NONE DETECTED); Monoclonal Protein Band 2 DNR g/dL (NONE DETECTED); Monoclonal Protein Band 3 DNR g/dL (NONE DETECTED); Total Protein 6.2 g/dL (6.1-8.1)
[2022-08-06] MEDS ORDERED: POTASSIUM CHLORIDE CRTAB 20 MEQ TABCR PO STA (07:16)
[2022-08-06] MEDS: MAGNESIUM OXIDE 400 MG TAB PO SCH ×2 (07:58→14:08)
[2022-08-06] MEDS: hydroCHLOROthiazide 25 MG TAB PO SCH (07:59)
[2022-08-06] MEDS: carvediloL 6.25 MG TAB PO SCH (07:59)
[2022-08-06] MEDS: FUROSEMIDE 40 MG/4 ML VIAL IV SCH (08:00)
[2022-08-06] MEDS: SPIRONOLACTONE 12.5 MG TAB PO SCH (08:00)
[2022-08-06] MEDS: lisinopril 40 MG TAB PO SCH (08:00)
[2022-08-06] MEDS: INSULIN ASPART PER UNIT SC SCH ×2 (08:07→11:46)
[2022-08-06] MEDS ORDERED: OPTIRAY 320 500ml IV ONE (08:32)
--- NOTE | 2022-08-06 09:01 | CT Scan Report ---
CT ANGIOGRAM OF THE NECK CLINICAL HISTORY: Hypertension. History of intracranial hemorrhage. COMPARISON STUDY: No priors. TECHNIQUE: Following the IV administration of 120 of Optiray 320, CT angiogram of the neck was perfor med from the aortic arch to the skull base. Images are reviewed in the axial, sagittal, and coronal p lanes. 3-D MIPS images are created and assessed. IV contrast was administered without complication. A ll measurements were calculated based on NASCET criteria. A dose lowering technique was utilized adh ering to the principles of ALARA. CT DOSE: 1287.35 mGy.cm FINDINGS: Thoracic aorta: Visualized portions of the thoracic aorta are normal in caliber. The aortic arch demo nstrates standard 3-vessel anatomy. Right carotid arterial system: The right common carotid artery is widely patent, as are the right int ernal and external carotid arteries. Calcified plaque is seen in the carotid bulb. Left carotid arterial system: The left common carotid artery is widely patent, as are the left commissioner of internal revenue al and external carotid arteries. Calcified plaque is noted in the carotid bulb. Vertebral arteries: The vertebral arteries are widely patent bilaterally. The right vertebral artery is dominant. The left vertebral artery is diminutive and terminates as the PICA. Subclavian arteries: Widely patent bilaterally. Jugular veins: Widely patent bilaterally. Brain parenchyma: The visualized brain parenchyma the skull base is within normal limits. Lung apices: Partially visualized upper lobe lung parenchyma appears clear. Soft tissues: The tonsils are mildly enlarged and heterogeneous, asymmetrically greater on the right. Calcified tonsilloliths are noted. The airway appears patent. There are 2 enhancing nodules in the l eft parotid gland which measure up to 1.0 cm. The salivary glands are otherwise normal as visualized. The thyroid gland is normal in appearance in appearance. No cervical lymphadenopathy is seen. Skeletal structures: The visualized calvarium at the skull base appears intact. The imaged cervical s pine is maintained noting multilevel spondylosis. No lytic or blastic lesion is seen. Sinuses and mastoids: A 2.3 cm retention cyst is noted in the right maxillary antrum, and an 11 mm re tention cyst is seen in the left maxillary antrum. The mastoid air cells are well pneumatized. Ventilation: There are numerous dental caries and periapical lucencies identified. IMPRESSION: 1. Unremarkable CT angiogram of the neck noting atherosclerotic calcification of the carotid bulbs. 2. There are 2 enhancing nodules identified in the left parotid gland measuring 1.0 cm. These are pat hologically indeterminate, and nonemergent/outpatient ENT follow-up and parotid ultrasound are recomm ended for further assessment. 3. The tonsils are enlarged and heterogeneous, asymmetrically greater on the right. Correlate with di rect visualization. 4. There are numerous dental caries and periapical lucencies. Follow up with dentistry is recommended . ACT 112: Negative or not required by law. Electronically signed by: Fabrice Qureshi M.D. 08/06/2022 8:59 AM
[2022-08-06] MEDS ORDERED: POTASSIUM CHLORIDE CRTAB 20 MEQ TABCR PO ONE (10:00)
--- NOTE | 2022-08-06 10:11 | CT Scan Report ---
CT angio head wo/w HISTORY: 46 years-old Male eval lesions in ludwig follow-up study in a patient with reported pontine l esion COMPARISON: Head CT 08/03/2022 TECHNIQUE: CTA of the head was obtained both with and without the use of 120 mL Optiray 320. 3-D paul nal and sagittal MIPS were obtained from the axial data set and were submitted for review. All measur ements were obtained according to NASCET criteria. A dose lowering technique was used consistent with the principals of HUSSAIN. FINDINGS: CT HEAD: No midline shift, acute territorial infarct, hydrocephalus or abnormal extra axial collection identif ied. Cavum septum pellucidum. The duarte-white interface appears preserved. Stable 1.6 x 0.9 cm hyperde nse focus within the mid central dorsal aspect of the ludwig on image 8 series 2. The previously noted hyperdense focus of the right cerebellar hemisphere which measured 1.6 x 0.9 cm on the prior study is less conspicuous on today's study now measuring approximately 1.1 x 0.8 cm. Heterogeneity of the valeria ateral brachium pontis distributions with ill-defined decreased attenuation. There is also decreased attenuation of the left cerebellum. No new lesions are identified. No acute calvarial fracture. The mastoid air cells are clear. 2.2 cm focus of polypoid mucosal thicke quentin is noted within the right maxillary sinus. CTA: The imaged distal internal carotid arteries are patent. There is mild multifocal luminal narrowing in volving the middle and anterior cerebral arteries. 2 mm saccular aneurysm involves the anterior commu nicating artery. The left vertebral artery appears to terminate within the PICA. The distal right park tebral artery is patent. The basilar artery is also patent. origin of the right posterior cereb ral artery with mild to moderate multifocal stenosis. The left posterior cerebral artery is unremarka ble. Cerebral venous sinuses are patent. No abnormal intracranial enhancement identified. No acute fr acture. IMPRESSION: 1. Stable 1.6 cm hyperdense focus within the mid central to dorsal aspect of the ludwig with decreased size and conspicuity of the 1.1 cm hyperdense focus within the right cerebellum. Findings favor intra parenchymal hematomas. Short-term follow-up MRI should be considered to exclude hemorrhagic lesions. 2. Ill-defined hypodensity of the left cerebellum is suggestive of an age-indeterminate infarct. 3. No new intracranial hemorrhage, midline shift or hydrocephalus. 4. 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 5. Predominantly mild multifocal luminal narrowing of the intracranial arteries. No high-grade stenos is or arterial occlusion identified. ACT 112: Negative or not required by law. The above report was generated using voice recognition software. It may contain grammatical, syntax o r spelling errors. Electronically signed by: Jj Wiley M.D. 08/06/2022 10:09 AM
[2022-08-06] MEDS: hydrALAZINE HCL 25 MG TAB PO SCH (10:18)
--- NOTE | 2022-08-06 10:49 | Cardiology Progress Note ---
Date of Service August 06, 2022 Assessment & Plan (1) Hypertensive urgency: Plan: The pathophysiology and medical consequences of longstanding uncontrolled hypertension were discussed with the patient and his at great lengths again today. Head CT reviewed, pt refusing MRI Okay to DC to home from a cardiac standpoint. Would send home on these medications: Aspirin 81 mg daily Atorvastatin 40 mg daily Carvedilol 6.25 mg p.o. twice daily Terazosin 5 mg p.o. nightly HCTZ 25 mg p.o. daily Spironolactone 25 mg p.o. daily Hydralazine 25 mg p.o. twice daily (2) NICM (nonischemic cardiomyopathy): Plan: No signs of acute coronary syndrome. EKG reveals left anterior fascicular block Severe concentric LVH on echocardiogram, most likely hypertensive in nature but will require outpatient cardiac MRI to rule out infiltrative disease as well GDMT initiated Is now 12 L negative Continues to diurese Renal function remained stable d/c home on lasix 40mg po daily will need bmp in 1 week my office will call to arrange cardiac follow up and stress testing (3) CAD (coronary artery disease): Plan: CT of the chest personally reviewed shows coronary artery calcifications present in both the left and right coronary artery distributions No clinical criteria for acute coronary syndrome is present May consider stress cardiac MRI to be completed in [place] in the future will start atorvastatin 40mg po daily as well hold off on asa given hemorrhagic head CT findings (4) Pulmonary hypertension: Plan: cont diuretics (5) Morbid obesity: (6) Mitral regurgitation: Admission and Anticipated Discharge Date Admission Date: August 03, 2022 Subjective Pt seen and examined. Chart reviewed. Telemetry reviewed. at bedside, states that he feels great. Review of Systems Review of Systems: All systems reviewed & are unremarkable except as noted in HPI & below Physical Exam Physical Exam: General: Awake, alert and oriented x 3. No acute distress. HEENT: Normocephalic, atraumatic. Pupils equal, round and reactive to light and accommodation. Extraocular muscles are intact. Anicteric sclera. Moist mucous membranes. Neck: No JVD. No bruit. Cardiovascular: Regular. Positive S-4. Normal S-1 and S-2. No S-3. No murmurs or rubs. Pulmonary: Clear to auscultation B/L. No rales, rhonchi or wheezing Abdomen: Bowel sounds x 4, distended. No rebound, guarding or tenderness. No organomegaly. Extremities: No clubbing, cyanosis. +2 bilateral lower extremity pitting edema. +2 pedal pulses bilaterally. Skin: Warm and dry. Results & Data ([facility]) Vital Signs (Past 12 Hours) Vital Signs Temp Pulse Pulse Pulse Resp BP Pulse Ox 08/06/22 08:36 08/06/22 08:00 74 08/06/22 08:11 36.6 C 76 22 158/91 H 92 08/06/22 04:00 36.8 C 79 15 175/84 H 94 08/06/22 00:00 36.9 C 77 20 150/96 H 93 O2 Del Method 08/06/22 08:36 Room Air 08/06/22 08:00 08/06/22 08:11 Room Air 08/06/22 04:00 Room Air 08/06/22 00:00 Room Air
--- NOTE | 2022-08-06 13:47 | Discharge Summary ---
Date of Service August 06, 2022 Admission HPI Per Admitting Provider History obtained from patient, family, and records. Medical history significant for hypertension, past alcohol abuse, ongoing tobacco abuse, psoriasis, umbilical hernia, medical noncompliance. Patient has not seen a family doctor for about 30 years. Known high blood pressure for a number of years now. No treatment because patient does not like going to doctors as per . 1 month history of increasing abdominal distention causing increased bulge of his umbilical hernia. No actual belly pain. Increasing shortness of breath especially on exertion. Unquantified weight gain with increase lower extremity swelling. No headache, no chest pain, no fever, no chills. History of alcohol abuse during his teens. Last EtOH intake was last month as per patient. Patient denies inordinate Tylenol intake. Patient brought to ER by for evaluation. Highest SBP at the ER to 270s. IV Lasix administered at the ER. 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 Admission Exam Per Admitting Provider GENERAL: Comfortable, slightly anxious, morbidly obese, looks older than stated age, no respiratory distress SKIN: Normal color, red plaques with some scaling over anterior abdomen and extremities, warm HEENT: Bespectacled, Bensley palpebral conjunctivae, no ptosis, moist buccal mucosa NECK : Supple, short neck, no tenderness CHEST : Decreased breath sounds, no tenderness HEART : RRR, no obvious murmurs ABDOMEN: Some distention, protuberant umbilical hernia, nontender EXTREMITIES : Bilateral LE swelling, no LE tenderness, no other conspicuous deformities noted NEUROLOGIC : Coherent, no facial asymmetry, no other gross focality Principal Diagnosis CHF exacerbation, cerebellar/pontine hemorrhagic stroke (small) Discharge Exam General Appearance:Morbidly Obese, no apparent distress Head: normocephalic, Atraumatic Eyes: normal inspection, EOMI Neck: supple, Trachea midline Respiratory/Chest: CTAB, No accessory muscle use Cardiovascular: S1, S2, No murmur Abdomen/GI:Soft, Non tender, obese abdomen, Bowel sounds present Extremities/Musculoskeletal:normal inspection, trace B/L LE edema around ankles Neurologic/Psych:AAOX3, grossly no focal neurological deficits Skin: normal color, warm Discharge Data Allergies Allergy/AdvReac Type Severity Reaction Status Date / Time No Known Allergies Allergy Verified 12/04/22 21:51 Consultations 08/03/22 03:12 ED Decision to Admit Stat 08/03/22 06:04 Consult Cardiology Routine Consult Gastroenterology Routine 08/03/22 10:24 Consult Neurology Routine 08/03/22 11:07 Consult Cloth Classer Routine Ordered Studies 08/02/22 21:53 CT abd pelvis IV con only Urgent 08/02/22 23:35 CT angio chest PE protocol Urgent US venous doppler LE BI Urgent 08/03/22 08:16 CT head/brain wo con Urgent 08/03/22 13:40 US abdomen limited Routine 08/04/22 08:00 CT head/brain wo con Routine 08/06/22 08:00 CTA head wo/w [CT angio head wo/w] Routine CTA neck with con [CT angio neck with con] Routine Diabetes Follow up Diabetes Follow-up Needed for Newly Diagnosed Diabetes Hospital Course (1) Congestive heart failure due to hypertension: Intracranial hemorrhage Hemorrhagic stroke - likely in the setting of long standing untreated hypertension - CT head:Hyperdensities in the right cerebellum and ludwig are concerning for intracranial hemorrhage in this patient with a hypertensive crisis. - Patient refuses to get MRI adamantly despite explaining the risks and complications - Also offered to be transferred to tertiary care facility given need for neurosurgical evaluation, but patient refuses the same and prefers no invasive procedures. - Avoid anticoagulants - Appreciate neurology input - Neuro checks - Repeat CT 08/04/2022: No change in hyperdense focus within the ludwig. Slight decrease of hyperdense focus in the right cerebellar hemisphere - CT angio of head and neck 08/06/2022: 1. Stable 1.6 cm hyperdense focus within the mid central to dorsal aspect of the ludwig with decreased size and conspicuity of the 1.1 cm hyperdense focus within the right cerebellum. Findings favor intraparenchymal hematomas. Short-term follow-up MRI should be considered to exclude hemorrhagic lesions. 2. Ill-defined hypodensity of the left cerebellum is suggestive of an age- indeterminate infarct. 3. No new intracranial hemorrhage, midline shift or hydrocephalus. 4. 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 5. Predomi - ok for discharge from neurology standpoint with follow up of CTH in 2 weeks and follow up in neurology office in 3 weeks Nonischemic cardiomyopathy Pulmonary hypertension Volume overload--multifactorial: Cirrhosis, hypertensive urgency, nonischemic cardiomyopathy Acute systolic/diastolic heart failure --ECHO: Severe concentric LVH, mildly reduced LV systolic function with mild global hypokinesis, EF 45 to 50%, grade 2 diastolic dysfunction, left atrium is mildly dilated, right atrium is moderately dilated, aortic valve sclerosis moderate, without significant aortic valvular stenosis, mitral valve leaflets appear thickened but not open, mild mitral annular calcification, mild mitral regurgitation, mild tricuspid regurgitation, significant pulmonary hypertension with PA systolic pressure of 61 mmHg assuming a right atrial pressure of 8 mm history. --CT ABD showed Atherosclerotic calcifications -- Continue metoprolol, lisinopril --Appreciate Cardiology Input - s/p IV Lasix 40mg BID - Monitor I's and O's, daily weight - Will likely need cardiac MRI eventually - continue on HCTZ, Aldactone Per Cardiology, discharge on: Atorvastatin 40 mg daily Carvedilol 6.25 mg p.o. twice daily Terazosin 5 mg p.o. nightly HCTZ 25 mg p.o. daily Spironolactone 25 mg p.o. daily Hydralazine 25 mg p.o. twice daily - no ASA 81 due to hemorrhage as noted above - follow up with Cardiology as outpatient HTN - presented with severely elevated BPs - CHF likely due to long standing untreated hypertension - continue BP meds per cardiology DM II New Diagnosis HbA1c 7.4 Not on any meds ISS, basal Insulin, Accu checks, Diabetic diet Pharmacy Glycemic control consult mortgage funder consulted as well - will discharge with jellyfishuch Verio glucometer, test strips, lancets 33g for daily monitoring - will discharge on metformin 500mg BID and follow up with PCP - made with Dr. Lanier 08/10/2022 at 11AM. Elevated D-dimer -CTA: No pulmonary emboli identified. -Venous Doppler:No evidence of deep venous thrombus within the bilateral lower extremities. Minimal superficial thrombus within the bilateral greater saphenous veins. - will get repeat imaging in 2 weeks with PCP Hepatic steatosis Past alcohol use disorder Acute hepatitis panel, other serological testing --CT ABD:Cirrhotic contour of the liver with numerous enhancing small nodules. If not previously evaluated, MRI liver mass protocol is recommended. Umbilical hernia containing fat and fluid. Bilateral pleural effusions and small volume a scites. --ABD USD:Small volume of abdominal ascites, predominantly within a perihepatic distribution. 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 Morbid Obesity BMI: 42 Telemarketing Sales Representative Lifestyle changes DVT Px: SCDs Re: Intracranial hemorrhage Code Status Full Code Total Time Total Time Spent Total Time Spent (In Minutes): 45 Total Time Includes: Examination of the Patient, Discharge Planning, Medication Reconciliation and Communication With Other Providers Discharge Plan Discharge Items Patient Disposition: Home - Self-Care Reason For Visit: HTN CRISIS, CHF Discharge Diagnosis: CHF exacerbation, pontine/cerebellar hemorrhage (small) Activity: Resume your previous activity Non-emergency contact: Primary Care Provider, Yield Analyst and Neurologist Call non-emergency contact if: you have any medication questions and your symptoms worsen Follow-up/Referrals: Dominick Green MD [Physician] - (will need follow up appointment in [address] of your head in 2 weeks) William Mehta DO [Physician] - PCP,NO [Primary Care Provider] - None (You have an appointment with Dr. Lanier at [facility] at 11AM on Wednesday08/10/2022. ) Diet: Carb Consistent or DM2 and Heart Healthy Addtl Attending Provider Instructions: You were admitted with shortness of breath, elevated blood pressure. You were found to have a heart failure with reduced heart function. You were seen by cardiology who started you on heart failure medications, which you should continue as prescribed. You were also noted to have a small stoke on CT of your head and you were seen by neurology. You need to continue to control your blood pressure which will help prevent further francis and will improve your heart function. You will need follow up with Cardiology and they will contact you for an appointment. You will need follow up with Neurology in about 3 weeks. You have a primary care doctor's appointment at [facility] on Wednesday08/10/[address] Spivey. You should have a repeat CT of your head prior to your neurology visit - your primary care doctor can order it for you. Pending Studies at Discharge: No Stand-Alone Forms: My [facility], Smoking Cessation Medications and DC Order Prescriptions: New terazosin 5 mg Capsule 5 mg PO HS Qty: 30 0RF atorvastatin 40 mg Tablet 40 mg PO QAM Qty: 30 0RF carvedilol 6.25 mg Tablet 6.25 mg PO BID Qty: 60 0RF hydralazine 25 mg Tablet 25 mg PO BID Qty: 60 0RF spironolactone 25 mg Tablet 12.5 mg PO DAILY Qty: 15 0RF magnesium oxide 400 mg (241.3 mg magnesium) Tablet 400 mg PO TID Qty: 4 0RF hydrochlorothiazide 25 mg Tablet 25 mg PO QAM Qty: 30 0RF lisinopril [Zestril] 40 mg Tablet 40 mg PO QAM Qty: 30 0RF (DME) blood-glucose meter [OneTouch [facility] Meter] [facility] See Rx Instructions .Route Qty: 1 0RF Rx Instructions: As directed (DME) OneTouch Verio test strips Strip See Rx Instructions .Route Qty: 50 0RF Rx Instructions: As directed (DME) lancets [OneTouch Delica Lancets] 33 gauge misc See Rx Instructions .Route Qty: 100 0RF Rx Instructions: As directed metformin 500 mg tablet extended release 24 hr 500 mg PO BID Qty: 60 0RF Discharge Orders: Discharge Order (Routine); Ordered 08/06/22 Ordered By: Peter Vaughn Admission Data Admit Date/Time: 08/03/22 05:09 Attending Provider: Peter Vaughn Admit Provider: Brigido Pat Primary Care Provider: PCP,NO Other Providers: Brigido Pat ; William Mehta ; Terell Donaldson ; Gustavo Pacheco ; Jayro Oleary ; Issa Kinsey ; Jesús Pacheco ; Analia Emerson ; Kimberly Zavaleta ; Marilia Hammonds ; Kristofer Cardoza ; Gem Dial ; Osvaldo Saleem ; Veena Browning ; Lary Smith ; Lynette Bay ; Shabana Dave ; Lorne Patrick ; Marisa Ro ; Juan David Clark ; Peyton Lopez ; Natalia Saez ; Ramiro Acosta ; Vickie Bush ; Christine Irvin ; Mitali Wall ; Melissa Wallace ; Dragan Castro ; Selvin Garsia ; Chadwick Harley ; Marilia Diamond ; Feli Weinstein Jr ; Dominick Green ; Antoine Rowan
[2022-08-06] MEDS ORDERED: hydrALAZINE HCL 25 MG TAB PO SCH (21:00)
[2022-08-07 00:53] LABS: Alpha 1 Antitrypsin 260 mg/dL (83-199); Anti Nuclear Antibody Screen NEGATIVE (NEGATIVE); Transglutaminase, Tissue IgA <1.0 U/mL
[2022-08-07] MEDS ORDERED: ATORVASTATIN 40 MG TAB PO SCH (09:00)
== END 2022-08-06 14:25 | disposition home or self-care (01) | DRG 291 ==
LOC: ED 18:50 → SUATTDRO 08-03 05:09 → 1E 08-03 05:09